=== PATIENT | male | born 1950 | race Caucasian/White ===

== ENCOUNTER 2024-05-09 03:58 | Inpatient (IN) | payer MEDICARE, MEDICAID, SELFPAY ==
[2024-05-09] VITALS (36 sets, daily range): BP systolic 113–169; BP diastolic 51–98; PULSE 54–90; RESP 12–29; TEMP 36–36.8; O2SAT 80–100; BMI 35.9; BMI 41.5
--- NOTE | 2024-05-09 04:04 | EKG_ITS ---
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 Associate: : 1950 Requested By: ED Temporary Provider Order Number: [id number] Reading MD: ED Temporary Provider Measurements Intervals [place] Rate: 61 P: 177 AR: 126 QRS: 252 QRSD: 107 T: 93 QT: 435 QTc: 440 Interpretive Statements ECTOPIC ATRIAL RHYTHM POSSIBLE RIGHT VENTRICULAR HYPERTROPHY [SOME/ALL OF: PROMINENT R IN V1, LATE TRANSITION, RAD, VENKAT, SSS] INFERIOR MYOCARDIAL INFARCTION , OF INDETERMINATE AGE [40+ ms Q WAVE AND/OR ST/T ABNORMALITY IN II/aVF] ANTEROLATERAL MYOCARDIAL INFARCTION , OF INDETERMINATE AGE [40+ ms Q WAVE IN I/aVL/V3-V6] Compared to ECG 04/26/2024 06:58:51 Ectopic atrial rhythm now present Sinus rhythm no longer present Indeterminate axis no longer present Myocardial infarct finding still present /store/S0/[id number].pdf
--- NOTE | 2024-05-09 04:07 | EDNOTE_ITS ---
ED SOB =RME/HPI General Chief Complaint: Shortness of Breath/Dyspnea Stated Complaint: SOB Time Seen by Provider: 05/09/24 04:07 Arrival date/time: 05/09/24 03:58 RME / HPI RME / HPI Narrative: This section includes all my notes and documentations, including HPI, PE, and ED course. Jeff Cherry MD HPI: 73-year-old male here to be evaluated with sudden respiratory distress and hypoxia at his half-way. 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 EMS gave sublingual NTG and topical NTG for possible pulmonary edema. Patient can't provide history due to AMS. ROS: Can't obtain history from the patient due to current clinical condition. Physical Exam: General: Patient is obtunded and in moderate respiratory distress. Eyes: Conjunctivae and lids clear. EOMI. PERRL. ENT: No nasal congestion. Neck: Supple. No carotid bruit. No JVD. Heart: RRR. Lungs: Moderate respiratory distress. Moderate to severe decreased air movement with wheezing and Rales. Abdomen: Soft and nontender. Legs: No clubbing, cyanosis, edema. Skin: Warm and dry. Neuro: Difficult exam due to AMS. I reviewed EMS and half-way notes. I ordered Solu-Medrol, MgSO4 IV, neb treatments, cefepime, vancomycin, and diagnostic tests. At 6 AM, the care of the patient was transferred to Dr Cruz. Jeff Cherry MD Related Data Home Medications ?Medication ?Instructions ?Recorded ?Confirmed clopidogrel 75 mg tablet (Plavix) 75 mg PO QDAY #0 tabs 12/23/15 04/19/24 gabapentin 300 mg capsule 300 mg PO TID #0 caps 01/10/17 04/19/24 magnesium hydroxide 400 mg/5 mL 30 ml PO Q72H PRN Constipation #0 01/10/17 04/19/24 oral suspension (Milk of Magnesia) mL ferrous sulfate 325 mg (65 mg 325 mg PO QDAY 10/07/23 04/19/24 iron) tablet hydrocodone 5 mg-acetaminophen 325 1 tab PO Q6H PRN Pain (Scale Score 10/19/23 04/19/24 mg tablet 7-10) bisacodyl 10 mg rectal suppository 10 mg AL Q72H 11/27/23 04/19/24 (Dulcolax (bisacodyl)) metformin 500 mg tablet 500 mg PO BIDWMEAL 11/27/23 04/19/24 Previous Rx's ?Medication ?Instructions ?Recorded amiodarone 200 mg tablet 200 mg PO BID #30 tabs 10/23/23 amlodipine 10 mg tablet 10 mg PO QDAY #30 tabs 10/23/23 apixaban 5 mg tablet 5 mg PO BID #60 tabs 10/23/23 tamsulosin 0.4 mg capsule (Flomax) 0.4 mg PO QDAY #30 caps 10/23/23 carvedilol 12.5 mg tablet 12.5 mg PO BIDWM 30 days #60 tabs 04/21/24 furosemide 20 mg tablet 20 mg PO Q72H 30 days #10 tabs 04/21/24 hydralazine 25 mg tablet 100 mg (4 x 25 mg) PO TID 30 days 04/21/24 #360 tabs ipratropium 0.5 mg-albuterol 3 mg 3 ml INH Q4HRRT 30 days #90 mL 04/21/24 (2.5 mg base)/3 mL nebulization soln levofloxacin 750 mg tablet 750 mg PO QDAY #1 tab 04/26/24 Allergies Allergy/AdvReac Type Severity Reaction Status Date / Time No Known Allergies Allergy Verified 06/10/19 11:00 Course Quality Measures none Orders Category Date Time Status Bedside COVID-19 Antigen Test NOW Care 05/09/24 04:38 Active Bedside Influenza A&B Antigen Test NOW Care 05/09/24 04:[address] Screening NOW Care 05/09/24 04:39 Active EKG (ED ONLY) *Do not use* NOW Care 05/09/24 04:04 Completed Saline [Insert IV] NOW Care 05/09/24 04:[address] abdomen pelvis w con Stat Exams 05/09/24 04:[address] angio chest Stat Exams 05/09/24 04:[address] head/brain wo con Stat Exams 05/09/24 04:38 Ordered EKG (ED Only) Stat Exams 05/09/24 04:04 Ordered XR chest 1V portable Stat Exams 05/09/24 04:38 Ordered ABG [Arterial Blood Gas] Stat Lab 05/09/24 04:08 Ordered Alcohol, Blood Medical Stat Lab 05/09/24 04:39 Ordered Ammonia Stat Lab 05/09/24 04:39 Ordered Amylase Stat Lab 05/09/24 04:39 Ordered BNP [B-Type Natriuretic Peptide] Stat Lab 05/09/24 04:39 Ordered Blood Culture (Lab) Stat Lab 05/09/24 04:39 Ordered CBC Stat Lab 05/09/24 04:39 Ordered CMP [Comprehensive Metabolic Panel] Stat Lab 05/09/24 04:39 Ordered CRP [C-Reactive Protein] Stat Lab 05/09/24 04:39 Ordered D-Dimer Stat Lab 05/09/24 04:39 Ordered Drug Screen,Urine Stat Lab 05/09/24 04:39 Ordered ESR [Sed Rate (ESR)] Stat Lab 05/09/24 04:39 Ordered Lactate (Lactic Acid) Stat Lab 05/09/24 04:39 Ordered Lipase Stat Lab 05/09/24 04:39 Ordered Magnesium Stat Lab 05/09/24 04:39 Ordered PT [Prothrombin Time with INR] Stat Lab 05/09/24 04:40 Ordered PTT [Partial Thromboplastin Time] Stat Lab 05/09/24 04:40 Ordered Procalcitonin Stat Lab 05/09/24 04:40 Ordered RSV [Respiratory Syncytial Virus Ag] Stat Lab 05/09/24 04:40 Ordered TSH [Thyroid Stimulating Hormone] Stat Lab 05/09/24 04:39 Ordered Troponin I Stat Lab 05/09/24 04:39 Ordered UA [Urinalysis] Stat Lab 05/09/24 04:40 Ordered Urine Culture Stat Lab 05/09/24 04:40 Ordered Albuterol/Ipratr Rt Maggie [Duoneb Rt Maggie] Med 05/09/24 04:08 Discontinued 9 ml INH X1 ONE Cefepime Inj [Maxipime Inj] 2 gm Med 05/09/24 04:09 Discontinued Sodium Chloride 0.9% (P) [Ns 0.9% (P)] 50 ml IV X1 Magnesium Sulfate 2 GM Ivpb [Magnesium Sulfate Ivpb] Med 05/09/24 04:08 Active 2 gm in 50 ml IV X1 MethylPREDNISolone.* [SoluMEDROL Inj] Med 05/09/24 04:08 Discontinued 125 mg IVP X1 ONE Vancomycin Inj 2,000 mg Med 05/09/24 04:10 Active Sodium Chloride 0.9% 500 ml [Ns] 500 ml IV X1 Vital Signs Vital signs: Vital Signs Temperature 98.0 F 05/09/24 04:09 Pulse Rate 73 05/09/24 04:09 Respiratory Rate 22 H 05/09/24 04:09 Blood Pressure 130/54 L 05/09/24 04:09 Pulse Oximetry (%) 85 L 05/09/24 04:09 Oxygen Delivery Method Room Air 05/09/24 04:09 Shortness of Breath / Dyspnea Patient data External records reviewed:: [facility] previous records, EMS form and Alf records Clinical information provided by:: EMS Social determinants that could affect healthcare access:: none (senior living patient with many serious medical problems) Patient has the following chronic illnesses:: See chart How is presenting disease/condition affected by chronic disease/condition?: exacerbated by Evaluation data The following diagnostics were reviewed and interpreted by me:: EKG tracing(s) (My interpretation of the EKG is: Sinus rhythm (73 bpm) with first-degree AV block and marked ST-T changes. Jeff Cherry MD) Lab and/or radiology exams considered but not ordered:: None Interpretation Summary: Diagnostic tests pending Medications / Prescriptions Medications or Prescriptions considered but not ordered:: None Medication administrations:: Medication Administration History Magnesium Sulfate (Magnesium Sulfate Ivpb) 2 gm in 50 mls @ 25 mls/hr IV X1 ONE Stop: 05/09/24 06:07 Last Admin: 05/09/24 04:40 Dose: 25 mls/hr Documented By: HARMONY Vancomycin HCl 2,000 mg/ (Sodium Chloride) 500 mls @ 150 mls/hr IV X1 ONE Stop: 05/09/24 07:29 Discontinued Medications Albuterol/Ipratropium (Albuterol/Ipratropium (Duoneb) Rt Maggie 3 Ml Nebu) 9 ml INH X1 ONE Stop: 05/09/24 04:09 Cefepime HCl 2 gm/ Sodium (Chloride) 50 mls @ 100 mls/hr IV X1 ONE Stop: 05/09/24 04:38 Last Admin: 05/09/24 04:47 Dose: 100 mls/hr Documented By: HARMONY Methylprednisolone Sodium Succinate (Methylprednisolone Sod Succ 62.5 Mg/Ml 2ml Vial) 125 mg IVP X1 ONE Stop: 05/09/24 04:09 Last Admin: 05/09/24 04:31 Dose: 125 mg Documented By: DB See chart Consultations Consultation(s) initiated? (list below): No Diagnosis Shortness of Breath Differential Diagnosis: acute exacerbation of chronic obstructive airways disease, congestive heart failure, community acquired pneumonia, asthma with exacerbation and pulmonary embolism Most likely diagnosis given after review of the tests above:: Diagnostic tests pending Admission Indicated Admission indicated?: not indicated Explain why admission is indicated or not indicated:: Diagnostic tests pending Admission Request Was there a request for admission?: No Disposition Plan Disposition Plan: Discharge Discharge Attestation Discharge Attestation: The patient and all family members were given an opportunity to ask questions and understood the discharge instructions. Discharge instructions specifically effects, indications for sooner follow up or return to the emergency department, and the expected course of current diagnosis. Patient condition: Stable Discharge Plan Prescriptions/Referrals Prescriptions/Med Rec: No Action clopidogrel [Plavix] 75 MG tablet 75 mg PO QDAY Qty: 0 magnesium hydroxide [Milk of Magnesia] 30 ML/CUP suspension 30 ml PO Q72H PRN (Reason: Constipation) Qty: 0 gabapentin 300 MG capsule 300 mg PO TID Qty: 0 hydrocodone-acetaminophen 5-325 mg tablet 1 tab PO Q6H PRN (Reason: Pain (Scale Score 7-10)) tamsulosin [Flomax] 0.4 mg capsule 0.4 mg PO QDAY Qty: 30 0RF amiodarone 200 mg tablet 200 mg PO BID Qty: 30 1RF Rx Instructions: HOLD FOR HR <60 apixaban 5 mg tablet 5 mg PO BID Qty: 60 0RF amlodipine 10 mg tablet 10 mg PO QDAY Qty: 30 0RF carvedilol 12.5 mg Tablet 12.5 mg PO BIDWM 30 Days Qty: 60 0RF ipratropium-albuterol 0.5 mg-3 mg(2.5 mg base)/3 mL Solution For Nebulization 3 ml INH Q4HRRT 30 Days Qty: 90 0RF hydralazine 25 mg Tablet 100 mg PO TID 30 Days Qty: 360 0RF furosemide 20 mg tablet 20 mg PO Q72H 30 Days Qty: 10 0RF levofloxacin 750 mg tablet 750 mg PO QDAY Qty: 1 0RF Rx Instructions: once on Friday 04/27 ferrous sulfate 325 mg (65 mg iron) Tablet 325 mg PO QDAY metformin 500 mg Tablet 500 mg PO BIDWMEAL bisacodyl [Dulcolax (bisacodyl)] 10 mg Suppository 10 mg AL Q72H Rx Instructions: ADMINISTER FOLLOWING SHIFT IF MOM INEFFECTIVE Referrals: No Primary/Family,Physician [Primary Care Provider] - In 1 week Problem List Clinical Impression: Respiratory failure Patient/Caregiver Discharge Instructions Print Language: Congolese
[2024-05-09] MEDS: MethylPREDNISolone SOD SUCC 62.5 MG/ML 2ML VIAL 125 MG IVP (04:31)
--- NOTE | 2024-05-09 04:38 | XR_ITS ---
Examination: AP chest single view TECHNIQUE: AP portable semiupright chest single view Exam date and time: May 09, 2024 0512 hours INDICATIONS: Shortness of breath today. FINDINGS: This is a nondiagnostic study, most of the lower chest is not included on this film Enlarged cardiac contour with prominent vascular congestion Bilateral pneumonia with layering left pleural fluid IMPRESSION: Nondiagnostic study
--- NOTE | 2024-05-09 04:38 | XR_ITS ---
Examination: CT brain head without contrast. 2-D sagittal coronal reconstructions Date and time of exam:May 09, 2024 0812 hours INDICATIONS: Altered mental status today difficulty breathing CTDI: vol (mGy):71.3 DLP: (mGycm):1548 Technique: Multiple CT axial sections of the brain have been obtained, 5 mm slice thickness. Contrast has not been administered. 2-D sagittal, coronal reconstructions have been obtained Low dose protocols were performed. One or more of the following dose reduction techniques were used; automated exposure control, adjustment of the mA and/or KV according to patient size, use of iterative reconstruction technique. Findings: Large old infarct right middle cerebral artery distribution with mild ipsilateral ventricular dilatation Intra-axial or extra-axial hemorrhage density is not seen. No mass effect or midline shift Basal cisterns are not remarkable. Fourth ventricle is midline. Cranial vault intact. Impression: Negative for acute hemorrhage, mass effect or midline shift Brain MRI follow-up would best assess for acute ischemic change
--- NOTE | 2024-05-09 04:39 | XR_ITS ---
Examination: CTA chest with intravenous contrast 2-D reconstructions 3-D reconstructions, vascular Date and time of exam: May 09, 2024 0818 hours INDICATIONS: Hypoxia chest pain shortness of breath today CTDI: vol (mGy) 66.7 DLP: (mGycm) 732 Technique: Multiple axial sections of the thorax have been obtained. 3 mm slice thickness, from below the hemidiaphragms to above the apices of the lungs. Mediastinal and lung density settings have been obtained. 2-D sagittal and coronal reconstructions. 3-D angiographic renderings, 3-D volume renderings, 3D post processing, vascular maximum intensity projections obtained. Contrast administered is 100 cc Isovue-370 intravenous. Low dose protocols were performed. One or more of the following dose reduction techniques were used; automated exposure control, adjustment of the mA and/or KV according to patient size, use of iterative reconstruction technique. Findings: No thoracic aortic aneurysm dilatation or dissection No pulmonary artery emboli Mild to moderate right pleural effusion Mild to moderate enlargement cardiac contour with prominent vascular congestion and septal pulmonary edema Extensive left lung and right base pneumonia IMPRESSION: Negative for pulmonary artery emboli Mild heart failure Bilateral pneumonia, significant
--- NOTE | 2024-05-09 04:39 | XR_ITS ---
Examination: CT abdomen with intravenous contrast CT pelvis with intravenous contrast 2-D coronal reconstructions 2-D sagittal reconstructions Date and time of exam:May 09, 2024 0824 hours Comparison April 25, 2024 INDICATIONS: Shortness of breath abdominal pain hypoxia today. CTDI: vol (mGy) 25.6 DLP: (mGycm) 1704 Technique: Multiple axial sections of the abdomen and pelvis have been obtained. 64 slice high-resolution scanner used. 3 mm axial sections have been obtained, post intravenous injection 100 cc Isovue-370 2-D sagittal, coronal reconstructions obtained. Low dose protocols were performed. One or more of the following dose reduction techniques were used; automated exposure control, adjustment of the mA and/or KV according to patient size, use of iterative reconstruction technique. Findings: Bibasilar pneumonia mild to moderate right pleural effusion Enlarged cardiac contour, small pericardial effusion Liver is irregular in contour no focal liver lesions Gallbladder wall appears thickened and edematous Spleen is not enlarged No pancreatic mass End-stage atrophic left kidney with 15 mm left ureteropelvic junction calculus No right hydronephrosis Dense abdominal aortic calcification no aneurysmal dilatation Abundant stool throughout the colon No pericecal inflammatory change Urinary catheter within the bladder, markedly abnormal thickening of the urinary bladder up to 12 mm, mild to moderate prostatomegaly Severe osteopenia with advanced degenerative disc disease L5-S1 Prominent lumbar levoscoliosis IMPRESSION: Bibasilar pneumonia Mild to moderate right pleural effusion Primary hepatocellular disease Recommend hepatobiliary sonography follow-up to exclude acute cholecystitis End-stage left kidney with 15 mm left ureteropelvic junction calculus Marked abnormal thickening of the urinary bladder, consider cystitis, urinary outflow obstruction secondary to mild to moderate prostatomegaly
[2024-05-09] MEDS: Magnesium Sulfate 2 GM Ivpb 2 GM/50 ML BAG IV (04:40)
[2024-05-09] MEDS: CEFEPIME INJ 2 GM in SODIUM CHLORIDE 0.9% (P) 50 ML IV (04:47)
[2024-05-09 05:14] LABS: Lactate (Lactic Acid) 1.3 mMol/L (0.4-2.0)
[2024-05-09 05:22] LABS: Basophils % (Auto) 0 % (0-2.5); Eosinophils # (Auto) 0.1 Thou/mm3 (0.0-0.5); Eosinophils % (Auto) 1 % (0-10); Hematocrit 42.6 % (41.0-53.0); Hemoglobin 12.9 g/dL (13.5-16.0); Immature Granulocytes % (Auto) 1 % (0-0); Immature Granulocytes Auto 0.07 Thou/mm3 (0.00-0.00); Lymphocytes # (Auto) 0.7 Thou/mm3 (1.0-4.8); Lymphocytes % (Auto) 5 % (10-50); Mean Corpuscular HGB Conc 30.3 g/dl (31.0-37.0); Mean Corpuscular Hemoglobin 26.4 pg (25.0-35.0); Mean Corpuscular Volume 87 fL (80-100); Monocytes # (Auto) 0.6 Thou/mm3 (0.0-0.8); Monocytes % (Auto) 5 % (0-12); Neutrophils % (Auto) 88 % (37-80); Nucleated Red Blood Cell % 0 /100 WBC (0); Platelet Count 295 Thou/mm3 (140-440); RDW Standard Deviation 55.4 fL (35.1-43.9); Red Blood Count 4.88 Miln/mm3 (4.50-5.90); White Blood Count 12.5 Thou/mm3 (3.8-10.6)
[2024-05-09 05:29] LABS: Collection Type, Urine Clean Catch
[2024-05-09 05:32] LABS: Sed Rate (ESR) 63 mm/hr (0-20)
[2024-05-09] MEDS: Vancomycin Inj 2,000 MG in SODIUM CHLORIDE 0.9% 500 ML 500 ML 150 MG IV (05:33)
[2024-05-09 05:36] LABS: Bacteria,Urine 4+; Bilirubin,Urine Negative (Negative); Blood,Urine 2+ (Negative); Color,Urine Orange (Lt Yel-Yel); Glucose, Urine Negative (Negative); Ketones,Urine Negative (Negative); Leukocyte Esterase,Urine Positive (Negative); Nitrite,Urine Negative (Negative); PH,Urine 7.5 (5.0-7.0); Protein,Urine 4+ (Neg - Trace); RBC,Urine 31 /hpf (0-3); Specific Gravity,Urine 1.017 (1.001-1.035); Squamous Epithelial Cell,Urine 9 /hpf (0-5); Urobilinogen,Urine Negative mg/dL (0.0-1.0); WBC,Urine 150 /hpf (0-5)
[2024-05-09 05:44] LABS: Partial Thromboplastin Time 26.8 Seconds (22.0-36.0); Prothrombin Time 11.4 Seconds (9.0-12.2)
[2024-05-09 05:50] LABS: D-Dimer < 250 ng/mL (<600)
[2024-05-09 06:14] LABS: Alanine Aminotransferase 27 U/L (10-49); Albumin, Serum 3.9 gm/dL (3.4-4.8); Albumin/Globulin Ratio 1.1 (1.2-2.2); Alcohol, Blood Medical < 3.0 mg/dL (0-10.0); Alkaline Phosphatase 83 U/L (46-116); Amylase 32 U/L (30-118); Anion Gap 5 (7-16); Aspartate Amino Transferase 20 U/L (0-34); BUN/Creatinine Ratio 14 Ratio (12-20); Bilirubin,Total 0.2 mg/dL (0.3-1.2); Blood Urea Nitrogen 15 mg/dL (9-23); C-Reactive Protein 0.6 mg/dL (0.0-0.9); Calcium 10.2 mg/dL (8.3-10.6); Calcium (Corrected) 10.3 mg/dL (8.5-10.1); Carbon Dioxide 30.3 mMol/L (20.0-31.0); Chloride 101 mMol/L (98-107); Creatinine (Component) 1.1 mg/dL (0.6-1.3); Estimated Creatinine Clearance 80.2 mL/min (>60); Globulin 3.4 gm/dL (2.3-3.5); Glucose 160 mg/dL (74-106); Lipase 37 U/L (12-53); Magnesium 2.1 mg/dL (1.6-2.6); Osmolality,Calculated 275 (275-295); Potassium 4.5 mMol/L (3.4-5.1); Sodium 136 mMol/L (136-145); Thyroid Stimulating Hormone 5.33 uIU/mL (0.55-4.78); Total Protein 7.3 gm/dL (5.7-8.2); Troponin I < 0.020 ng/mL (0.0-0.045); eGFR > 60 See Note
[2024-05-09 06:15] LABS: Amphetamine/Methamp Scrn,U Negative (Negative); Barbiturate Screen,Urine Negative (Negative); Benzodiazepines Screen,Urine Negative (Negative); Benzoylecgonine Screen, Ur Negative (Negative); Fentanyl Screen,Urine Negative (Negative); Opiate Screen,Urine Positive (Negative); THC Screen,Urine Negative (Negative)
--- NOTE | 2024-05-09 06:19 | PD.EDADDENDU ---
Emergency Room Addendum Addendum Narrative: 0600: Care assumed from Dr. Cherry, the previous shift emergency physician. Past medical, surgical, social and family history reviewed. Vitals and home medications reviewed. I will assume the care of the patient at this time pending reassessment, CT reports, final disposition. Please refer to the emergency department record for history and examination from initial visit.? EMS notes reviewed by me. Nursing notes reviewed by me. Vital signs reviewed by me. half-way records reviewed by me. [facility] medical records reviewed by me. I reviewed admission from 04/18/2024 through 06/26/2023 for acute hypoxic respiratory failure secondary to aspiration pneumonia requiring mechanical ventilation. Patient was admitted to the ICU, extubated on 04/19/2024 and downgraded to floors. 0625: Patient was saturating 92-93% on 4L. Oxygen was turned off and patient saturating 80% on room air. 0750: pCO2 is 82. I spoke with buffing turner and counter Dr. Aleman. Discussed patients PMHx, HPI, ED course, exam findings, labs, and radiology results. Advised starting patient on BiPAP and will admit to ICU. RADIOLOGY Ordering Physician: Jeff Cherry MD Date of Service: 05/09/24 Procedure(s): CT head/brain wo [facility] Accession Number(s): [id number] cc: Jeff Cherry MD; Vicente Don MD; NO PRIMARY/FAMILY,PHYSICIAN~ Examination: CT brain head without contrast. 2-D sagittal coronal reconstructions Date and time of exam:May 09, 2024 0812 hours INDICATIONS: Altered mental status today difficulty breathing CTDI: vol (mGy):71.3 DLP: (mGycm):1548 Technique: Multiple CT axial sections of the brain have been obtained, 5 mm slice thickness. Contrast has not been administered. 2-D sagittal, coronal reconstructions have been obtained Low dose protocols were performed. One or more of the following dose reduction techniques were used; automated exposure control, adjustment of the mA and/or KV according to patient size, use of iterative reconstruction technique. Findings: Large old infarct right middle cerebral artery distribution with mild ipsilateral ventricular dilatation Intra-axial or extra-axial hemorrhage density is not seen. No mass effect or midline shift Basal cisterns are not remarkable. Fourth ventricle is midline. Cranial vault intact. Impression: Negative for acute hemorrhage, mass effect or midline shift Brain MRI follow-up would best assess for acute ischemic change Dictated By:Vicente Don MD Signed By:<Electronically signed by Vicente Don MD in [place]>05/09/24 1003 Ordering Physician: Jeff Cherry MD Date of Service: 05/09/24 Procedure(s): CT abdomen pelvis w con Accession Number(s): [id number] cc: Jeff Cherry MD; Vicente Don MD; NO PRIMARY/FAMILY,PHYSICIAN~ Examination: CT abdomen with intravenous contrast CT pelvis with intravenous contrast 2-D coronal reconstructions 2-D sagittal reconstructions Date and time of exam:May 09, 2024 0824 hours Comparison April 25, 2024 INDICATIONS: Shortness of breath abdominal pain hypoxia today. CTDI: vol (mGy) 25.6 DLP: (mGycm) 1704 Technique: Multiple axial sections of the abdomen and pelvis have been obtained. 64 slice high-resolution scanner used. 3 mm axial sections have been obtained, post intravenous injection 100 cc Isovue-370 2-D sagittal, coronal reconstructions obtained. Low dose protocols were performed. One or more of the following dose reduction techniques were used; automated exposure control, adjustment of the mA and/or KV according to patient size, use of iterative reconstruction technique. Findings: Bibasilar pneumonia mild to moderate right pleural effusion Enlarged cardiac contour, small pericardial effusion Liver is irregular in contour no focal liver lesions Gallbladder wall appears thickened and edematous Spleen is not enlarged No pancreatic mass End-stage atrophic left kidney with 15 mm left ureteropelvic junction calculus No right hydronephrosis Dense abdominal aortic calcification no aneurysmal dilatation Abundant stool throughout the colon No pericecal inflammatory change Urinary catheter within the bladder, markedly abnormal thickening of the urinary bladder up to 12 mm, mild to moderate prostatomegaly Severe osteopenia with advanced degenerative disc disease L5-S1 Prominent lumbar levoscoliosis IMPRESSION: Bibasilar pneumonia Mild to moderate right pleural effusion Primary hepatocellular disease Recommend hepatobiliary sonography follow-up to exclude acute cholecystitis End-stage left kidney with 15 mm left ureteropelvic junction calculus Marked abnormal thickening of the urinary bladder, consider cystitis, urinary outflow obstruction secondary to mild to moderate prostatomegaly Dictated By:Vicente Don MD Signed By:<Electronically signed by Vicente Don MD in [place]>05/09/24 1000 Ordering Physician: Jeff Cherry MD Date of Service: 05/09/24 Procedure(s): CT angio chest Accession Number(s): [id number] cc: Jeff Cherry MD; Vicente Don MD; NO PRIMARY/FAMILY,PHYSICIAN~ Examination: CTA chest with intravenous contrast 2-D reconstructions 3-D reconstructions, vascular Date and time of exam: May 09, 2024 0818 hours INDICATIONS: Hypoxia chest pain shortness of breath today CTDI: vol (mGy) 66.7 DLP: (mGycm) 732 Technique: Multiple axial sections of the thorax have been obtained. 3 mm slice thickness, from below the hemidiaphragms to above the apices of the lungs. Mediastinal and lung density settings have been obtained. 2-D sagittal and coronal reconstructions. 3-D angiographic renderings, 3-D volume renderings, 3D post processing, vascular maximum intensity projections obtained. Contrast administered is 100 cc Isovue-370 intravenous. Low dose protocols were performed. One or more of the following dose reduction techniques were used; automated exposure control, adjustment of the mA and/or KV according to patient size, use of iterative reconstruction technique. Findings: No thoracic aortic aneurysm dilatation or dissection No pulmonary artery emboli Mild to moderate right pleural effusion Mild to moderate enlargement cardiac contour with prominent vascular congestion and septal pulmonary edema Extensive left lung and right base pneumonia IMPRESSION: Negative for pulmonary artery emboli Mild heart failure Bilateral pneumonia, significant Dictated By:Vicente Don MD Signed By:<Electronically signed by Vicente Don MD in [place]>05/09/24 1002
[2024-05-09 06:31] LABS: Clarity,Urine Turbid (Clear/Hazy)
--- NOTE | 2024-05-09 07:16 | PC.NURSE ---
CALLED RT FOR BREATHING TREATMENT AND ABG
[2024-05-09 07:37] LABS: Allen Test Performed/OK; Base Excess 5 (-3-3); HCO3 35 mEq/L (20-26); Inspired O2, VO2 Liters 5 L/min; Inspired Oxygen, FIO2 21 %; O2 Saturation 93 % (91-98); PCO2 83 mmHg (32.0-48.0); PO2 69 mmHg (83-108); Puncture Site Right Radial; pH, Arterial 7.23 (7.35-7.45)
[2024-05-09] MEDS: ALBUTEROL/IPRATROPIUM (Duoneb) RT SOL 3 ML NEBU 9 ML INH (07:38)
[2024-05-09 07:56] LABS: B-Type Natriuretic Peptide 149 pg/mL (0-100)
[2024-05-09 07:57] LABS: Ammonia < 10 uMol/L (11-32)
[2024-05-09 08:08] LABS: Procalcitonin 0.35 ng/ml (0.0-0.49)
--- NOTE | 2024-05-09 08:35 | PC.NURSE ---
pt back from ct. rt at bedside to place pt on bipap. pt is alert and answering questions at this time
--- NOTE | 2024-05-09 08:40 | PC.NURSE ---
residents and icu hospitalist at bedside to see pt
[2024-05-09 08:42] LABS: Respiratory Syncytial Virus Ag Negative (Negative)
[2024-05-09 09:38] LABS: Allen Test Performed/OK; Base Excess 4 (-3-3); HCO3 34 mEq/L (20-26); Inspired Oxygen, FIO2 50 %; O2 Saturation 95 % (91-98); PCO2 78 mmHg (32.0-48.0); PO2 77 mmHg (83-108); Puncture Site Right Radial; pH, Arterial 7.24 (7.35-7.45)
[2024-05-09] MEDS: PANTOPRAZOLE INJ 40 MG VIAL IVP (10:09)
[2024-05-09] MEDS: CLOPIDOGREL BISULFATE 75 MG TABLET PO (10:19)
[2024-05-09] MEDS: APIXABAN 2.5 MG TABLET 5 MG PO ×2 (10:19→21:15)
[2024-05-09] MEDS: ALBUTEROL/IPRATROPIUM (Duoneb) RT SOL 3 ML NEBU INH (10:27)
--- NOTE | 2024-05-09 10:40 | PC.NURSE ---
report given to Romana on icu floor. pt to go to room 251
[2024-05-09] MEDS: ALBUTEROL RT 2.5 MG/0.5 ML NEBU 5 MG INH ×2 (12:57→18:23)
--- NOTE | 2024-05-09 13:02 | PC.SS ---
DOZER OPERATOR attempted phone contact with patient's friend Perry Mccain . No response. Message left requesting return call.
--- NOTE | 2024-05-09 13:08 | PC.SS ---
L[employer] MUSIC TEACHER conducted chart review to complete initial assessment. Patient is a [facility] resident of [facility]. Patient is bed bound. Patient utilizes oxygen at the facility. Patient requires assistance with completion of ADL?s. Patient?s medical surrogate decision maker is friend, Perry Mccain . Facility PCP is Dr. Sandoval. L[employer] TEACHER to confirm with SNF that patient can return to facility once medically cleared. [employer] TEACHER attempted phone contact with medical surrogate decision maker to confirm discharge plan. Upon discharge patient will require ambulance transport. Patient possesses insurance coverage for ambulance transport. [employer] representative will arrange transportation on behalf of the patient. No further intervention required at this time, social work instructor will be available to address any further concerns. Next of Kin: Perry Mccain D/C Plan: SNF
[2024-05-09] MEDS: VANCOMYCIN/NS 1 GM IVPB 200 ML IV ×2 (14:28→21:15)
[2024-05-09 14:53] LABS: Base Excess, Venous 5 (-3-3); O2 Saturation, Venous 101 % (96-97); PCO2, Venous 53 mmHg (36-56); PO2, Venous 188 mmHg (15-58); pH, Venous 7.38 (7.33-7.66)
--- NOTE | 2024-05-09 18:19 | ESHP_ITS ---
<Statement entered by Suze Barney MD - 05/10/24 06:53> Patient was seen and examined by me personally. I have directly supervised and reviewed the above documentation by the team resident and agree with its findings with any exceptions or additional findings as below. Plan of care was discussed with the attending, Dr. Aleman. Suze Barney, PGY-2 Documentation for date of: 05/09/24 HPI History of Present Illness Chief complaint: altered mental status History of present illness: This is a 73-year-old male with past medical history of CVA with left-sided deficits, hypertension, hyperlipidemia, HFpEF 50% on 11/05, history of COPD, history of type 2 diabetes on metformin, and BPH with indwelling catheter, recent admission on 04/20/2024 for acute hypoxic respiratory failure and underwent intubation [facility] due to shortness of breath and altered mental status. Patient is not able to provide history in view of altered mental status so most of history is taken from chart review. EMS found him altered at [facility] facility and gave him nitroglycerin in view of suspected pulmonary edema and brought him to the ED. ED Course: -Initial vitals were blood pressure 137/64 mmHg, pulse rate 73/min, respiratory rate 22/min, temperature 98 ?F, SpO2 85%. -Labs significant for WBC 12.5, Hb 12.9, platelets 295, ESR 63, sodium 136, potassium 4.5, bicarb 30.3, BUN 15, creatinine 1.1, lactate 1.3, total bilirubin 0.2, negative troponins, BNP 149, procalcitonin 0.35, TSH 5.33. Urine analysis showed turbid urine with 4+ proteinuria and 2+ blood, 150 WBC, 31 RBC with 4+ urine bacteria. Chest x-ray done at the time showed left pneumonia with pleural effusion which was present since the previous admission. Chest CT done showed left lung collapse with pleural effusion bilaterally. -In the ED, patient was given methylprednisolone 125 Mg, cefepime, vancomycin and started on BiPAP -Patient was admitted for acute on chronic hypoxic respiratory failure Review of Systems Review of Systems ROS Unobtainable: unobtainable due to mental status Exam Vital Signs Temp Pulse Resp BP Pulse Ox O2 Del Method O2 Flow Rate 98.0 F 62 17 148/63 H 95 BiPAP 5 05/09/24 16:00 05/09/24 17:01 05/09/24 17:01 05/09/24 17:01 05/09/24 17:01 05/09/24 13:01 05/09/24 07:40 FiO2 45 05/09/24 13:46 Narrative Exam General: Awake and in moderate distress with BiPAP mask connected to the machine. Morbidly obese. HEENT: Normocephalic, atraumatic, mucous membranes moist. Brownish secretions noted at the angle of mouth. Heart: Regular rate and rhythm, no murmurs. Lungs: Bilateral decreased breath sounds noted due to body habitus. Abdomen: Soft, nondistended, nontender, positive bowel sounds. ?No guarding or rebound tenderness. Neurologic: Lethargic with decreased movements noted on left half of the body. Extremities: No edema. Skin: No rash or ecchymoses. Results: Labs 05/11/24 05:38 05/11/24 05:38 Labs: Short CBC 05/09/24 Range/Units 04:20 WBC 12.5 H (3.8-10.6) Thou/mm3 Hgb 12.9 L (13.5-16.0) g/dL Hct 42.6 (41.0-53.0) % Plt Count 295 (140-440) Thou/mm3 BMP 05/09/24 04:20 Sodium 136 Potassium 4.5 Chloride 101 Carbon Dioxide 30.3 BUN 15 Creatinine 1.1 Glucose 160 H Calcium 10.2 Cardiac Enzymes 05/09/24 Range/Units 04:20 Troponin I < 0.020 (0.0-0.045) ng/mL Liver Function 05/09/24 Range/Units 04:20 Total Bilirubin 0.2 L (0.3-1.2) mg/dL AST 20 (0-34) U/L ALT 27 (10-49) U/L Alkaline Phosphatase 83 (46-116) U/L Albumin 3.9 (3.4-4.8) gm/dL Urine 05/09/24 Range/Units 03:00 Urine Color [place] A (Lt Yel-Yel) Urine Clarity Turbid A (Clear/Hazy) Urine pH 7.5 H (5.0-7.0) Ur Specific [place] 1.017 (1.001-1.035) Urine Protein 4+ A (Neg - Trace) Urine Glucose (UA) Negative (Negative) ABG Interpretation ABG results: 05/09/24 05/09/24 05/09/24 07:34 09:35 14:48 ABG pH 7.23 L 7.24 L ABG pCO2 83 H* 78 H* ABG pO2 69 L 77 L ABG HCO3 35 H 34 H ABG O2 Saturation 93 95 ABG Base Excess 5 H 4 H VBG pH 7.38 VBG pCO2 53 VBG pO2 188 H VBG Base Excess 5 H Quality Measures Quality Measures none Advance care planning discussed with:: patient Medications Home Medications and Allergies Home Medications ?Medication ?Instructions ?Recorded ?Confirmed ?Type clopidogrel 75 mg tablet (Plavix) 75 mg PO QDAY #0 tabs 12/23/15 05/13/24 History gabapentin 300 mg capsule 300 mg PO TID #0 caps 01/10/17 05/13/24 History magnesium hydroxide 400 mg/5 mL 30 ml PO Q72H PRN Constipation #0 01/10/17 05/13/24 History oral suspension (Milk of Magnesia) mL ferrous sulfate 325 mg (65 mg 325 mg PO QDAY 10/07/23 05/13/24 History iron) tablet hydrocodone 5 mg-acetaminophen 325 1 tab PO Q6H PRN Pain (Scale Score 10/19/23 05/13/24 History mg tablet 7-10) bisacodyl 10 mg rectal suppository 10 mg [place] Q72H 11/27/23 05/13/24 History (Dulcolax (bisacodyl)) metformin 500 mg tablet 500 mg PO BIDWMEAL 11/27/23 05/13/24 History hydralazine 25 mg tablet 50 mg PO TID 05/09/24 05/13/24 History Allergies Allergy/AdvReac Type Severity Reaction Status Date / Time No Known Allergies Allergy Verified 05/09/24 05:50 Visit Medications Acetaminophen (Acetaminophen 325 Mg Tablet) 650 mg PO Q4HR PRN PRN Reason: PAIN SCALE 1-3 (mild Stop: 06/08/24 08:47 Al Hydrox/Mg Hydrox/Simethicone (Mg Hyd/Al Hyd/[place] (Maalox Reg) Susp 30 Ml Udc) 30 ml PO Q4HR PRN PRN Reason: Heartburn or Upset Stomach Stop: 06/08/24 08:47 Albuterol (Albuterol Rt 2.5 Mg/0.5 Ml Nebu) 5 mg INH Q6HRRT [facility] Stop: 06/08/24 12:59 Last Admin: 05/09/24 12:57 Dose: 5 mg Amiodarone HCl (Amiodarone Hcl 200 Mg Tablet) 200 mg PO BID [facility] Stop: 06/08/24 08:59 Last Admin: 05/09/24 12:18 Dose: Not Given Apixaban (Apixaban 2.5 Mg Tablet) 5 mg PO BID [facility] Stop: 06/08/24 08:59 Last Admin: 05/09/24 10:19 Dose: 5 mg Clopidogrel Bisulfate (Clopidogrel Bisulfate 75 Mg Tablet) 75 mg PO QDAY [facility] Stop: 06/08/24 08:59 Last Admin: 05/09/24 10:19 Dose: 75 mg Dextrose (Dextrose 50%-Water Inj 50 Ml Syringe) 25 ml IV Q15MIN PRN PRN Reason: BG 50-70 responsive npo pt Stop: 06/08/24 08:54 Dextrose (Dextrose 50%-Water Inj 50 Ml Syringe) 50 ml IV Q15MIN PRN PRN Reason: BG <50 OR BG <70 & pt unresponsive Stop: 06/08/24 08:54 Glucagon (Glucagon Inj 1 Mg Vial) 1 mg IM Q15MIN PRN PRN Reason: BG <70, and no IV access Cefepime HCl 1 gm/ Sodium (Chloride) 50 mls @ 100 mls/hr IV Q12HR [facility] Stop: 05/16/24 08:59 Last Admin: 05/09/24 10:41 Dose: Not Given Vancomycin/Sodium Chloride (Vancomycin/Ns 1 Gm Ivpb) 200 mls @ 120 mls/hr IV Q8HR [facility]; Protocol Stop: 05/16/24 13:59 Last Admin: 05/09/24 14:28 Dose: 120 mls/hr Insulin Human Lispro (Insulin Lispro (Admelog) 1 Unit/0.01 Ml Unit) 0 unit SC [facility]; Protocol Stop: 06/08/24 11:29 Last Admin: 05/09/24 13:09 Dose: Not Given Magnesium Hydroxide (Milk Of Magnesia Susp 30 Ml Udc) 30 ml PO QDAY PRN PRN Reason: CONSTIPATION Stop: 06/08/24 08:47 Methylprednisolone Sodium Succinate (Methylprednisolone Sod Succ 40 Mg Vial) 40 mg IVP BID [facility] Stop: 05/16/24 08:59 Last Admin: 05/09/24 10:09 Dose: 40 mg Pantoprazole Sodium (Pantoprazole Inj 40 Mg Vial) 40 mg IVP QDAY [facility] Stop: 06/08/24 08:59 Last Admin: 05/09/24 10:09 Dose: 40 mg Pharmacy Consult (Vancomycin Pharmacy To Dose 1 Each Each) 1 each IV QDAY PRN PRN Reason: PROTOCOL Stop: 06/08/24 08:59 Discontinued Medications Albuterol/Ipratropium (Albuterol/Ipratropium (Duoneb) Rt Maggie 3 Ml Nebu) 9 ml INH X1 ONE Stop: 05/09/24 04:09 Last Admin: 05/09/24 07:38 Dose: 9 ml Albuterol/Ipratropium (Albuterol/Ipratropium (Duoneb) Rt Maggie 3 Ml Nebu) 3 ml INH Q4HRRT [facility] Stop: 06/08/24 10:59 Last Admin: 05/09/24 10:27 Dose: 3 ml Magnesium Sulfate (Magnesium Sulfate Ivpb) 2 gm in 50 mls @ 25 mls/hr IV X1 ONE Stop: 05/09/24 06:07 Last Infusion: 05/09/24 06:43 Dose: Infused Cefepime HCl 2 gm/ Sodium (Chloride) 50 mls @ 100 mls/hr IV X1 ONE Stop: 05/09/24 04:38 Last Infusion: 05/09/24 05:33 Dose: Infused Vancomycin HCl 2,000 mg/ (Sodium Chloride) 500 mls @ 150 mls/hr IV X1 ONE Stop: 05/09/24 07:29 Last Infusion: 05/09/24 09:58 Dose: Infused Methylprednisolone Sodium Succinate (Methylprednisolone Sod Succ 62.5 Mg/Ml 2ml Vial) 125 mg IVP X1 ONE Stop: 05/09/24 04:09 Last Admin: 05/09/24 04:31 Dose: 125 mg Assessment & Plan Plan 73-year-old male with past medical history of CVA with left-sided deficits, hypertension, hyperlipidemia, HFpEF 50% on 11/05, history of COPD, history of type 2 diabetes A1c 8.4 on 10/06 and BPH with indwelling catheter [facility] due to shortness of breath and diagnosed to have AHRF 2/2 combined aspiration pneumonia and influenza NEURO Patient is awake, alert, and oriented x3, following commands, conversational. #No active problems # History of [id number] residual deficit, bedridden. -Will continue Plavix CARDIO # History of HFpEF (EF 50 to 55% on 10/2023) -Patient is using furosemide 20 Mg p.o. daily. -On physical examination, patient does not appear to be in heart failure -no pedal edema, JVD absent. -EKG done on 05/09/2024-normal sinus rhythm, Q waves in inferior leads and V1- V6, poor R wave progression. -Echo done on 10/2023 - Normal LV size. Probable normal systolic function. Estimated EF 50-55%. RV and RA not well visualized. Mild LA dilatation. Moderate posterior MAC. Mild AV sclerosis without stenosis. -BNP is 149, Trop I - <0.020. Plan -Withheld Lasix for now as patient does not appear fluid overloaded. # History of paroxysmal atrial fibrillation -Patient is on Eliquis Plan -Will continue Eliquis 5 Mg twice daily and amiodarone 200 Mg p.o. twice daily # History of hypertension -Blood pressures at the time of admission is within normal limits. -Will resume his home medication if needed. PULM # Acute on chronic hypoxic respiratory failure -Ddx: Combined CPAP noncompliance, aspiration and atelectasis of left lung with underlying COPD, obstructive sleep apnea, OHS -Patient is supposed to use oxygen at home / and also using CPAP at night but noncompliant -Patient was recently intubated on 04/18/2024 for hypoxic respiratory failure. -Again presented with altered mental status and low oxygen saturations and started on BiPAP. -Chest x-ray left pleural effusion with bilateral pneumonia. -CT showed Bibasilar pneumonia. Mild to moderate right pleural effusion -ABG showed pH 7.24, pCO2 78, PaO2 77, bicarb 34. Plan -blood, urine and sputum secretions culture were sent -Patient was kept on BiPAP. -Started on cefepime and vancomycin [05/09-present -Respiratory therapy and chest physiotherapy were ordered. # History of COPD -Patient is using oxygen and CPAP at home -Stop smoking years ago. -On examination, there is no wheeze heard -Will continue noninvasive mechanical ventilation and maintain SpO2 between 88 and 92. GI #No active problems NEPHRO # Respiratory acidosis with compensated metabolic alkalosis -DDX: Could be due to underlying chronic COPD with compensatory metabolic alkalosis -Repeat VBG was within limits. ENDO # History of diabetes -Patient is using metformin 500 Mg p.o. twice daily at his nursing facility -HbA1c is 6 on 04/20/2024 Plan -Patient is on insulin sliding scale HEME # Leukocytosis -WBC count at the time of admission is 12.5 -Likely due to aspiration pneumonia -Will continue the antibiotics for now MSK # Chronic back pain -Patient is using [place] at home : #BPH with indwelling catheter Patient came with garcia catheter from SNF. Plan: -cont tamsulosin SKIN #No active problems DVT prophylaxis: Eliquis GI prophylaxis: Pantoprazole 40 Mg IV Diet: Low carbohydrate and cardiac diet Garcia: Present Lines: Peripheral Antibiotics: vancomycin and cefepime CODE STATUS: FULL Reason for ICU care: Acute on chronic hypoxic respiratory failure Patient plan of care was discussed with the attending information systems coordinator, Dr. Aleman and senior resident Dr. Ector Rollins, PGY1 Attending Provider Attestation/Addendum Patient seen and examined with above resident, Silvestre Rollins MD. I agree with the findings, assessment, and plan of care as documented except for any differences below. Patient admitted with acute on chronic hypercapnic/hypoxic respiratory failure with significant left lung atelectasis. Will plan for use of noninvasive positive pressure ventilation as mechanical ventilation and intubation may be very difficult to wean and should be avoided if possible. Previous history of recurrent admissions for similar presentation. Patient did require intubation in the past and was quickly weaned within 24 hours to avoid prolonging and potential for worsening respiratory muscle function and deconditioning associated with prolonged illness. At this point he is not a good candidate for bronchoscopy as this will surely require intubation for safety. Patient's gas exchange slowly improving with current BiPAP settings. Will avoid any sedation but could consider Precedex as needed as it does not affect respiratory drive. Chest physiotherapy along with nebulization with saline and albuterol should be done to help with mucous plugging that is likely contributing to the his current presentation. Patient empirically placed on antibiotics as pneumonia may be driving significant airway secretions at this point. Patient not having significant cough though this is likely related to his poor mental status/encephalopathy secondary to CO2 retention. He is starting to wake up and interactive with staff and complaining about BiPAP mask which is a good sign. Total critical care time: I personally spent 35 minutes for review of physiologic parameters, directing plan of care throughout the day, and coordination of care with ED. this is exclusive of time spent teaching housestaff or performing any separate billable procedures. Patient continues to require critical care services for acute on chronic hypercapnic respiratory failure with acute encephalopathy secondary to CO2 narcosis with high risk for increased morbidity requiring mechanical ventilation and mortality associated with this.
[2024-05-09] MEDS: AMIODARONE HCL 200 MG TABLET PO (21:15)
[2024-05-09] MEDS: CEFEPIME INJ 1 GM in SODIUM CHLORIDE 0.9% (P) 50 ML IV (21:16)
[2024-05-10] VITALS (25 sets, daily range): BP systolic 134–174; BP diastolic 56–79; PULSE 57–74; RESP 11–28; TEMP 36.3–36.9; O2SAT 95–99; BMI 41.5
[2024-05-10] MEDS: ALBUTEROL RT 2.5 MG/0.5 ML NEBU 5 MG INH ×3 (00:38→19:19)
[2024-05-10 05:20] LABS: Base Excess 7 (-3-3); HCO3 33 mEq/L (20-26); Inspired Oxygen, FIO2 21 %; O2 Saturation 97 % (91-98); PCO2 51 mmHg (32.0-48.0); PO2 80 mmHg (83-108); pH, Arterial 7.42 (7.35-7.45)
[2024-05-10 05:21] LABS: Allen Test Performed/OK; Puncture Site Right Radial
[2024-05-10 05:52] LABS: Basophils % (Auto) 0 % (0-2.5); Eosinophils % (Auto) 0 % (0-10); Hemoglobin 12.3 g/dL (13.5-16.0); Immature Granulocytes % (Auto) 0 % (0-0); Immature Granulocytes Auto 0.02 Thou/mm3 (0.00-0.00); Lymphocytes # (Auto) 0.3 Thou/mm3 (1.0-4.8); Lymphocytes % (Auto) 6 % (10-50); Mean Corpuscular HGB Conc 30.8 g/dl (31.0-37.0); Mean Corpuscular Hemoglobin 26.3 pg (25.0-35.0); Mean Corpuscular Volume 86 fL (80-100); Monocytes # (Auto) 0.1 Thou/mm3 (0.0-0.8); Monocytes % (Auto) 2 % (0-12); Neutrophils # (Auto) 5.4 Thou/mm3 (1.8-7.7); Neutrophils % (Auto) 92 % (37-80); Nucleated Red Blood Cell % 0 /100 WBC (0); Platelet Count 274 Thou/mm3 (140-440); RDW Standard Deviation 55.2 fL (35.1-43.9); Red Blood Count 4.67 Miln/mm3 (4.50-5.90); White Blood Count 5.8 Thou/mm3 (3.8-10.6)
[2024-05-10 06:12] LABS: Alanine Aminotransferase 24 U/L (10-49); Albumin, Serum 3.7 gm/dL (3.4-4.8); Albumin/Globulin Ratio 1.2 (1.2-2.2); Alkaline Phosphatase 76 U/L (46-116); Anion Gap 5 (7-16); Aspartate Amino Transferase 16 U/L (0-34); BUN/Creatinine Ratio 21 Ratio (12-20); Bilirubin,Total 0.3 mg/dL (0.3-1.2); Blood Urea Nitrogen 21 mg/dL (9-23); Calcium 10.1 mg/dL (8.3-10.6); Calcium (Corrected) 10.3 mg/dL (8.5-10.1); Carbon Dioxide 30.6 mMol/L (20.0-31.0); Chloride 102 mMol/L (98-107); Estimated Creatinine Clearance 88.3 mL/min (>60); Free T4 (Free Thyroxine) 1.51 ng/dL (0.89-1.76); Globulin 3.2 gm/dL (2.3-3.5); Glucose 173 mg/dL (74-106); Magnesium 2.2 mg/dL (1.6-2.6); Osmolality,Calculated 282 (275-295); Phosphorous 2.2 mg/dL (2.4-5.1); Potassium 4.6 mMol/L (3.4-5.1); Sodium 138 mMol/L (136-145); Total Protein 6.9 gm/dL (5.7-8.2); Vancomycin,Trough 27.2 mcg/mL (5.0-10.0); eGFR > 60 See Note
--- NOTE | 2024-05-10 07:13 | XR_ITS ---
Examination: AP chest single view Technique one AP portable semiupright chest single view Exam date and time: May 10, 2024 0724 hours Comparison May 09, 2024 INDICATIONS: Shortness of breath this week. FINDINGS: Extensive bilateral lung opacity, severe in the left hemithorax Prominent vascular congestion Cardiac contour is obscured Prominent osteopenia IMPRESSION: Bilateral pneumonia, extensive left lung with layering left pleural fluid
[2024-05-10] MEDS: AMIODARONE HCL 200 MG TABLET PO ×2 (08:45→20:26)
[2024-05-10] MEDS: CEFEPIME INJ 1 GM in SODIUM CHLORIDE 0.9% (P) 50 ML IV ×2 (08:45→20:29)
[2024-05-10] MEDS: CLOPIDOGREL BISULFATE 75 MG TABLET PO (08:45)
[2024-05-10] MEDS: APIXABAN 2.5 MG TABLET 5 MG PO ×2 (08:45→20:30)
[2024-05-10] MEDS: PANTOPRAZOLE INJ 40 MG VIAL IVP (08:45)
[2024-05-10] MEDS: amLODIPine BESYLATE 5 MG TABLET 10 MG PO (08:45)
[2024-05-10] MEDS: INSULIN LISPRO (AdmeLOG) 1 UNIT/0.01 ML UNIT SC ×3 (12:40→20:30)
--- NOTE | 2024-05-10 15:42 | EVENTNT_ITS ---
Documentation for date of: 05/10/24 Event Note Event Note: The patient is a 73-year-old male with a past medical history of CVA with left- sided deficits, hypertension, hyperlipidemia, HFpEF, COPD, type II DM and BPH with indwelling catheter who presented to the ED on 05/09/2024 with shortness of breath and altered mental status. In the ED, patient was noted to be tachypneic with increased work of breathing. Chest x-ray showed left lung pneumonia with pleural effusion which was present since previous admission and chest CT showed left lung collapse with pleural effusion bilateral. ABG showed pCO2 of 83. The patient was given IV Solu-Medrol, started on IV antibiotics cefepime and Vanco and was admitted to the ICU for further monitoring for acute on chronic hypoxic respiratory failure. The patient never got intubated and was on BiPAP and ABGs have improved significantly. Today, the patient is more alert and stable to be downgraded back to the floors. He is currently on IV cefepime, Comycin, Solu-Medrol 40 mg daily. Pending cultures Will take over management on 05/11/2024. Case was discussed with senior resident Dr Thomas PGY-3 and attending physician, Dr Bandar Banuelos MD PGY-1
--- NOTE | 2024-05-10 16:54 | ESPR_ITS ---
<Statement entered by Suze Barney MD - 05/14/24 01:15> Patient was seen and examined by me personally. I have directly supervised and reviewed the above documentation by the team resident and agree with its findings with any exceptions or additional findings as below. Plan of care was discussed with the attending, Dr. Aleman. Suze Barney, PGY-2 Documentation for date of: 05/10/24 Subjective Subjective Interval history: Patient was seen and examined in the ICU. Does not want to use BiPAP, continued oxygen through nasal cannula and saturations are maintaining well. No acute overnight events. Vitals are stable. ABG showed respiratory acidosis with metabolic alkalosis. CBC and CMP are within limits. Repeat chest x-ray showed collapse of left lung and will continue chest physiotherapy. As the patient is alert, awake and able to protect his own airway we will downgrade patient to the floors for further management. Recommended to continue BiPAP. Exam Vital Signs Temp Pulse Resp BP Pulse Ox O2 Del Method O2 Flow Rate 98.5 F 70 18 174/72 H 97 Nasal Cannula 4 05/10/24 12:00 05/10/24 12:02 05/10/24 12:02 05/10/24 12:00 05/10/24 12:02 05/10/24 12:00 05/10/24 12:02 FiO2 35 05/10/24 08:00 Narrative Exam General: Awake and in no distress with oxygen through nasal cannula. Morbidly obese. HEENT: Normocephalic, atraumatic, mucous membranes moist. Brownish secretions noted at the angle of mouth. Heart: Regular rate and rhythm, no murmurs. Lungs: Bilateral decreased breath sounds noted due to body habitus. Abdomen: Soft, nondistended, nontender, positive bowel sounds. ?No guarding or rebound tenderness. Neurologic: Lethargic with decreased movements noted on left half of the body. Extremities: No edema. Skin: No rash or ecchymoses. Objective Labs 05/11/24 05:38 05/11/24 05:38 Labs: Laboratory Results - last 24 hr 05/10/24 05/10/24 05:13 05:26 WBC 5.8 D RBC 4.67 Hgb 12.3 L Hct 40.0 L MCV 86 MCH 26.3 MCHC 30.8 L RDW Std Deviation 55.2 H Plt Count 274 Neut % (Auto) 92 H Lymph % (Auto) 6 L Hand % (Auto) 2 Eos % (Auto) 0 Baso % (Auto) 0 Neut # (Auto) 5.4 Lymph # (Auto) 0.3 L Hand # (Auto) 0.1 Eos # (Auto) 0.0 Baso # (Auto) 0.0 Immature Gran # (Auto) 0.02 H Absolute Nucleated RBC 0.00 Immature Gran % 0 Nucleated RBC % 0 Puncture Site Right Radial ABG pH 7.42 D ABG pCO2 51 H D ABG pO2 80 L ABG HCO3 33 H ABG O2 Saturation 97 ABG Base Excess 7 H FiO2 21 Sodium 138 Potassium 4.6 Chloride 102 Carbon Dioxide 30.6 Anion Gap 5 L BUN 21 Creatinine 1.0 Estim Creat Clear Calc 88.3 eGFR > 60 BUN/Creatinine Ratio 21 H Glucose 173 H Calculated Osmolality 282 Calcium 10.1 Corrected Calcium 10.3 H Phosphorus 2.2 L Magnesium 2.2 Total Bilirubin 0.3 AST 16 ALT 24 Alkaline Phosphatase 76 Total Protein 6.9 Albumin 3.7 Globulin 3.2 Albumin/Globulin Ratio 1.2 Free T4 1.51 Vancomycin Trough 27.2 H* ABG Interpretation ABG results: 05/09/24 05/09/24 05/09/24 07:34 09:35 14:48 ABG pH 7.23 L 7.24 L ABG pCO2 83 H* 78 H* ABG pO2 69 L 77 L ABG HCO3 35 H 34 H ABG O2 Saturation 93 95 ABG Base Excess 5 H 4 H VBG pH 7.38 VBG pCO2 53 VBG pO2 188 H VBG Base Excess 5 H 05/10/24 05:13 ABG pH 7.42 D ABG pCO2 51 H D ABG pO2 80 L ABG HCO3 33 H ABG O2 Saturation 97 ABG Base Excess 7 H VBG pH VBG pCO2 VBG pO2 VBG Base Excess Quality Measures Quality Measures none Advance care planning discussed with:: patient Assessment & Plan Assessment Current Active Medications: Generic Name Dose Route Start Last Admin Trade Name Freq PRN Reason Stop Dose Admin Acetaminophen 650 mg 05/09/24 08:48 Acetaminophen 325 Mg Tablet PO 06/08/24 08:47 Q4HR PRN PAIN SCALE 1-3 (mild Albuterol 5 mg 05/09/24 13:00 05/10/24 12:02 Albuterol Rt 2.5 Mg/0.5 Ml Nebu INH 06/08/24 12:59 Not Given Q6HRRT CIPRIANO Amiodarone HCl 200 mg 05/09/24 09:00 05/10/24 08:45 Amiodarone Hcl 200 Mg Tablet PO 06/08/24 08:59 200 mg BID CIPRIANO Administration Amlodipine Besylate 10 mg 05/10/24 09:00 05/10/24 08:45 Amlodipine Besylate 5 Mg Tablet PO 06/09/24 08:59 10 mg QDAY CIPRIANO Administration Apixaban 5 mg 05/09/24 09:00 05/10/24 08:45 Apixaban 2.5 Mg Tablet PO 06/08/24 08:59 5 mg BID CIPRIANO Administration Clopidogrel Bisulfate 75 mg 05/09/24 09:00 05/10/24 08:45 Clopidogrel Bisulfate 75 Mg Tablet PO 06/08/24 08:59 75 mg QDAY CIPRIANO Administration Dextrose 25 ml 05/09/24 08:55 Dextrose 50%-Water Inj 50 Ml Syringe IV 06/08/24 08:54 Q15MIN PRN BG 50-70 responsive npo pt Dextrose 50 ml 05/09/24 08:55 Dextrose 50%-Water Inj 50 Ml Syringe IV 06/08/24 08:54 Q15MIN PRN BG <50 OR BG <70 & pt unresponsive Glucagon 1 mg 05/09/24 08:55 Glucagon Inj 1 Mg Vial IM Q15MIN PRN BG <70, and no IV access Cefepime HCl 1 gm/ Sodium 50 mls @ 100 mls/hr 05/09/24 09:00 05/10/24 10:11 Chloride IV 05/16/24 08:59 Infused Q12HR CIPRIANO Infusion Insulin Human Lispro 0 unit 05/09/24 11:30 05/10/24 16:48 Insulin Lispro (Admelog) 1 Unit/0.01 Ml Unit SC 06/08/24 11:29 1 unit ACHS CIPRIANO Administration Protocol Magnesium Hydroxide 30 ml 05/09/24 08:48 Milk Of Magnesia Susp 30 Ml Udc PO 06/08/24 08:47 QDAY PRN CONSTIPATION Methylprednisolone Sodium Succinate 40 mg 05/10/24 09:00 05/10/24 08:45 Methylprednisolone Sod Succ 40 Mg Vial IVP 12/03/24 08:59 40 mg QDAY CIPRIANO Administration Pantoprazole Sodium 40 mg 05/09/24 09:00 05/10/24 08:45 Pantoprazole Inj 40 Mg Vial IVP 06/08/24 08:59 40 mg QDAY CIPRIANO Administration Plan 73-year-old male with past medical history of CVA with left-sided deficits, hypertension, hyperlipidemia, HFpEF 50% on 11/05, history of COPD, history of type 2 diabetes A1c 8.4 on 10/06 and BPH with indwelling catheter presented to the emergency department from a [facility] facility due to shortness of breath and diagnosed to have AHRF 2/2 combined aspiration pneumonia and influenza NEURO Patient is awake, alert, and oriented x3, following commands, conversational. #No active problems # History of JQG-[id number]-[id number] residual deficit, bedridden. -Will continue Plavix CARDIO # History of HFpEF (EF 50 to 55% on 10/2023) -Patient is using furosemide 20 Mg p.o. daily. -On physical examination, patient does not appear to be in heart failure -no pedal edema, JVD absent. -EKG done on 05/09/2024-normal sinus rhythm, Q waves in inferior leads and V1- V6, poor R wave progression. -Echo done on 10/2023 - Normal LV size. Probable normal systolic function. Estimated EF 50-55%. RV and RA not well visualized. Mild LA dilatation. Moderate posterior MAC. Mild AV sclerosis without stenosis. -BNP is 149, Trop I - <0.020. Plan -Withheld Lasix for now as patient does not appear fluid overloaded. # History of paroxysmal atrial fibrillation -Patient is on Eliquis Plan -Will continue Eliquis 5 Mg twice daily and amiodarone 200 Mg p.o. twice daily # History of hypertension -Blood pressures at the time of admission is within normal limits. -Will resume his home medication if needed. PULM # Acute on chronic hypoxic respiratory failure -Ddx: Combined CPAP noncompliance, aspiration and atelectasis of left lung with underlying COPD, obstructive sleep apnea, OHS -Patient is supposed to use oxygen at home 05/01 and also using CPAP at night but noncompliant -Patient was recently intubated on 04/18/2024 for hypoxic respiratory failure. -Again presented with altered mental status and low oxygen saturations and started on BiPAP. -Chest x-ray left pleural effusion with bilateral pneumonia. -CT showed Bibasilar pneumonia. Mild to moderate right pleural effusion -ABG showed pH 7.24, pCO2 78, PaO2 77, bicarb 34. Plan -blood, urine and sputum secretions culture were sent, negative after 24 hours. -Patient was kept on BiPAP. -Started on cefepime and vancomycin [05/09-present -Respiratory therapy and chest physiotherapy were ordered. # History of COPD -Patient is using oxygen and CPAP at home -Stop smoking years ago. -On examination, there is no wheeze heard -Will continue noninvasive mechanical ventilation and maintain SpO2 between 88 and 92. GI #No active problems NEPHRO # Respiratory acidosis with compensated metabolic alkalosis -DDX: Could be due to underlying chronic COPD with compensatory metabolic alkalosis -Repeat VBG was within limits. ENDO # History of diabetes -Patient is using metformin 500 Mg p.o. twice daily at his nursing facility -HbA1c is 6 on 04/20/2024 Plan -Patient is on insulin sliding scale HEME # Leukocytosis -WBC count at the time of admission is 12.5 -Likely due to aspiration pneumonia -Will continue the antibiotics for now MSK # Chronic back pain -Patient is using [place] at home : #BPH with indwelling catheter Patient came with garcia catheter from SNF. Plan: -cont tamsulosin SKIN #No active problems DVT prophylaxis: Eliquis GI prophylaxis: Pantoprazole 40 Mg IV Diet: Low carbohydrate and cardiac diet Garcia: Present Lines: Peripheral Antibiotics: vancomycin and cefepime CODE STATUS: FULL Reason for ICU care: Acute on chronic hypoxic respiratory failure Patient plan of care was discussed with the attending employment officer, Dr. Aleman and senior resident Dr. Ector Rollins, PGY1 Attending Provider Attestation/Addendum Patient seen and examined with above resident, Silvestre Rollins MD. I agree with the findings, assessment, and plan of care as documented except for any differences below. Patient successfully weaned off of BiPAP though this will likely be beneficial in the long run overnight. Patient continues to require chest physiotherapy given predisposition to mucous plugging and lobar atelectasis specifically on the left side. Patient stable on nasal cannula. Mobilization will be integral to longer on that he remains bedbound and seems to be so at the facility as well. Patient tolerating albuterol and saline nebs along with chest physio at this point which has helped we recruit and optimize gas exchange. Will plan for transfer to telemetry for ongoing management prior to discharge. Patient not an ideal candidate for bronchoscopy given his morbid obesity and high likelihood for need for intubation which is why he fortunately has not been able to receive the procedure again on this admission as well. Patient counseled at bedside and updated on plan of care. Total critical care time: I personally spent 40 minutes for review of physiologic parameters, directing plan of care throughout the day, counseling patient at bedside, and coordination of care with medicine. This is exclusive of time spent teaching housestaff or performing separate billable procedures. Patient continues to require critical care services for acute on chronic hypoxic/hypercapnic respiratory failure in the setting of OHS/mucous plugging with increased risk for further morbidity and mortality.
[2024-05-11] VITALS (16 sets, daily range): BP systolic 148–160; BP diastolic 68–80; PULSE 61–92; RESP 17–24; TEMP 36.4–36.7; O2SAT 92–99; BMI 41.5
[2024-05-11] MEDS: ALBUTEROL RT 2.5 MG/0.5 ML NEBU 5 MG INH ×3 (01:56→13:47)
[2024-05-11 06:01] LABS: Basophils % (Auto) 0 % (0-2.5); Eosinophils % (Auto) 0 % (0-10); Hemoglobin 12.7 g/dL (13.5-16.0); Immature Granulocytes % (Auto) 0 % (0-0); Immature Granulocytes Auto 0.04 Thou/mm3 (0.00-0.00); Lymphocytes # (Auto) 0.5 Thou/mm3 (1.0-4.8); Lymphocytes % (Auto) 6 % (10-50); Mean Corpuscular HGB Conc 31.8 g/dl (31.0-37.0); Mean Corpuscular Hemoglobin 26.3 pg (25.0-35.0); Mean Corpuscular Volume 83 fL (80-100); Monocytes # (Auto) 0.7 Thou/mm3 (0.0-0.8); Monocytes % (Auto) 7 % (0-12); Neutrophils % (Auto) 87 % (37-80); Nucleated Red Blood Cell % 0 /100 WBC (0); Platelet Count 295 Thou/mm3 (140-440); RDW Standard Deviation 53.6 fL (35.1-43.9); Red Blood Count 4.83 Miln/mm3 (4.50-5.90); White Blood Count 9.3 Thou/mm3 (3.8-10.6)
[2024-05-11 06:34] LABS: Alanine Aminotransferase 25 U/L (10-49); Albumin, Serum 3.9 gm/dL (3.4-4.8); Albumin/Globulin Ratio 1.3 (1.2-2.2); Alkaline Phosphatase 70 U/L (46-116); Anion Gap 5 (7-16); Aspartate Amino Transferase 15 U/L (0-34); BUN/Creatinine Ratio 27 Ratio (12-20); Bilirubin,Total 0.4 mg/dL (0.3-1.2); Blood Urea Nitrogen 24 mg/dL (9-23); Calcium 9.8 mg/dL (8.3-10.6); Calcium (Corrected) 9.9 mg/dL (8.5-10.1); Carbon Dioxide 30.6 mMol/L (20.0-31.0); Chloride 101 mMol/L (98-107); Creatinine (Component) 0.9 mg/dL (0.6-1.3); Estimated Creatinine Clearance 98.1 mL/min (>60); Globulin 3.1 gm/dL (2.3-3.5); Glucose 157 mg/dL (74-106); Osmolality,Calculated 280 (275-295); Potassium 4.2 mMol/L (3.4-5.1); Sodium 137 mMol/L (136-145); Vancomycin,Random 13.2 mcg/mL; eGFR > 60 See Note
[2024-05-11] MEDS: INSULIN LISPRO (AdmeLOG) 1 UNIT/0.01 ML UNIT SC ×2 (07:29→13:30)
[2024-05-11] MEDS: APIXABAN 2.5 MG TABLET 5 MG PO (08:53)
[2024-05-11] MEDS: AMIODARONE HCL 200 MG TABLET PO (08:53)
[2024-05-11] MEDS: amLODIPine BESYLATE 5 MG TABLET 10 MG PO (08:54)
[2024-05-11] MEDS: CEFEPIME INJ 1 GM in SODIUM CHLORIDE 0.9% (P) 50 ML IV (08:54)
[2024-05-11] MEDS: CLOPIDOGREL BISULFATE 75 MG TABLET PO (08:54)
[2024-05-11] MEDS: PANTOPRAZOLE INJ 40 MG VIAL IVP (08:55)
--- NOTE | 2024-05-11 12:13 | PC.SS ---
FLUE BLOWER confirmed with SNF that patient's oxygen level needs to be at 3L to return to facility. Patient currently on 5L. FLUE BLOWER updated bedside nurse.
--- NOTE | 2024-05-11 15:27 | ESDS_ITS ---
<Statement entered by Shahram Portillo MD - 05/17/24 14:55> 73-year-old with multiple comorbidities including hypertension, hyperlipidemia, type 2 diabetes mellitus, CVA with left-sided residual deficits, heart failure with preserved EF with a EF 50% and COPD on 3 L supplemental oxygen, BPH with chronic indwelling Gutiérrez catheter who presents with acute hypoxic hypercapnic r espiratory failure and subsequently requiring ICU level of care. Currently, patient is on 3 L supplemental oxygen, talking without any difficulties and stated that he wants to be discharged. As of now, he patient is hemodynamically stable and plan to discharge the patient. Advised patient to comply with BiPAP and if he was not to use BiPAP the likelihood of him needing intubation is very high. All of his questions were answered and patient verbalized understanding. As a result, plan to discharge the patient. I reviewed above note and agree with findings and plans. I have also personally examined the patient with medicine team and went over assessment and plan with medical team including general internal medicine physician and resident physician. <Statement entered by Gerri Thomas DO - 05/11/24 19:36> Senior attestation: Patient was examined and case was reviewed with team including attending physician. Note reviewed, I agree with most of its contents and agree with the patient's care. Gerri Thomas DO PGY-3 Planned Discharge Date 05/11/24 DS: Providers Provider Date of admission: 05/09/24 08:57 Primary care physician: Physician No Primary/Family Admitting Provider: Wilbur Aleman MD Attending Provider on Admission: Wilbur Aleman MD Attending Provider on DC: Shahram Portillo MD Discharging Provider: Shahram Portillo MD DS: Diagnosis Problem List Completed Was Problem List Reviewed/Reconciled?: Yes Hospital Course Hospital Course Hospital course: The patient is a 73-year-old male with a past medical history of CVA with left- sided deficits, hypertension, hyperlipidemia, HFpEF, COPD, type II DM and BPH with indwelling catheter who presented to the ED on 05/09/2024 with shortness of breath and altered mental status. In the ED, patient was noted to be tachypneic with increased work of breathing. Chest x-ray showed left lung pneumonia with pleural effusion which was present since previous admission and chest CT showed left lung collapse with pleural effusion bilateral. ABG showed pCO2 of 83. The patient was given IV Solu-Medrol, started on IV antibiotics cefepime and Vanco and was admitted to the ICU for further monitoring for acute on chronic hypoxic respiratory failure. The patient never got intubated and was on BiPAP and ABGs improved significantly and he was downgraded back to the floors. Urine culture returned positive for Proteus Mirabilis sensitive to Augmentin. Today, the patient is clinically and hemodynamically stable, saturating 96% on 3 L of oxygen and is medically clear for discharge. He will continue antibiotics Augmentin and doxycycline for another 12 days to cover aspiration pneumonia and Proteus UTI. Patient has been placed on a LAMA and ICS combination, fluticasone-salmeterol and will be on a prednisone taper for 5 days. He has been advised to stop the tobacco chews as it is possible that this is the source of his recurrent aspiration pneumonia. He is recommended to follow-up with his primary care provider within 1 week of discharge. #Acute on chronic hypoxic respiratory failure #Aspiration pneumonia #History of COPD #Proteus UTI #History of HFpEF #History of CVA with left-sided residual deficits #BPH with indwelling catheter Case was discussed with senior resident Dr Thomas PGY-3 and attending physician, Dr Bandar Banuelos MD PGY-1 Status at Discharge Overall status at discharge: patient is back to baseline Time Spent with Patient Time attestation: Total time spent providing and/or coordinating discharge services:more than 30minutes Exam Vital Signs Temp Pulse Resp BP Pulse Ox O2 Del Method O2 Flow Rate 97.9 F 70 20 151/69 H 92 L Nasal Cannula 2 05/11/24 12:00 05/11/24 13:49 05/11/24 13:49 05/11/24 12:00 05/11/24 14:35 05/11/24 14:35 05/11/24 14:35 FiO2 35 05/11/24 00:00 Narrative Exam GENERAL: AAOX3 NEURO: SPARERIBS TRIMMER grossly intact, moves extremities x4 HEENT: Moist mucosa. Eyes open, symmetrical, & clear CARDIO: No chest pain on palpation. Heart RRR, no obvious murmurs PULM: No noted coughing/dyspnea. Lungs CTA B/L, no wheezing, saturating 96% on 3L GI: Abdomen soft, nondistended, no pain on palpation. BSx4 URO/PROPELLER INSPECTOR:: No further abnormalities noted. Gutiérrez catheter indwelling SKIN/MSK/EXT: Bilateral pitting edema 2+ Discharge Plan Plan Patient Disposition: Xfer Skilled Nsg Fac (SNF) Care Plan Goals: Follow up with your PCP within one week of discharge Continue antibiotics augmentin and doxycycline for another 12 days Use COPD medications and inhalers as prescribed Continue all other medications as prescribed You need STOP chewing tobacco to prevent aspiration and hospitalization If your symptoms re-occur or worsen, please return to the ED immediately Prescriptions/Referrals Prescriptions/Med Rec: New doxycycline hyclate 100 mg capsule 100 mg PO BID 12 Days Qty: 24 0RF amoxicillin-pot clavulanate 875-125 mg tablet 1 tab PO BID 12 Days Qty: 24 0RF pantoprazole [Protonix] 40 mg tablet,delayed release (DR/EC) 40 mg PO QDAY 14 Days Qty: 14 0RF fluticasone propion-salmeterol [Advair Diskus] 250-50 mcg/dose blister with device 1 inh inhalation Q12H Qty: 60 0RF prednisone 5 mg tablets,dose pack 5 mg PO QDAY Qty: 21 0RF Continued clopidogrel [Plavix] 75 MG tablet 75 mg PO QDAY Qty: 0 magnesium hydroxide [Milk of Magnesia] 30 ML/CUP suspension 30 ml PO Q72H PRN (Reason: Constipation) Qty: 0 gabapentin 300 MG capsule 300 mg PO TID Qty: 0 hydrocodone-acetaminophen 5-325 mg tablet 1 tab PO Q6H PRN (Reason: Pain (Scale Score 7-10)) tamsulosin [Flomax] 0.4 mg capsule 0.4 mg PO QDAY Qty: 30 0RF amiodarone 200 mg tablet 200 mg PO BID Qty: 30 1RF Rx Instructions: HOLD FOR HR <60 apixaban 5 mg tablet 5 mg PO BID Qty: 60 0RF amlodipine 10 mg tablet 10 mg PO QDAY Qty: 30 0RF carvedilol 12.5 mg Tablet 12.5 mg PO BIDWM 30 Days Qty: 60 0RF ipratropium-albuterol 0.5 mg-3 mg(2.5 mg base)/3 mL Solution For Nebulization 3 ml INH Q4HRRT 30 Days Qty: 90 0RF furosemide 20 mg tablet 20 mg PO Q72H 30 Days Qty: 10 0RF ferrous sulfate 325 mg (65 mg iron) Tablet 325 mg PO QDAY metformin 500 mg Tablet 500 mg PO BIDWMEAL bisacodyl [Dulcolax (bisacodyl)] 10 mg Suppository 10 mg IA Q72H Rx Instructions: ADMINISTER FOLLOWING SHIFT IF MOM INEFFECTIVE hydralazine 25 mg tablet 50 mg PO TID Discontinued levofloxacin 750 mg tablet 750 mg PO QDAY Qty: 1 0RF Rx Instructions: once on Friday 04/27 Referrals: No Primary/Family,Physician [Primary Care Provider] - Patient/Caregiver Discharge Instructions Discharge Activity: activity as tolerated Education Materials: Asthma and COPD Print Language: Luxembourgish Stand Alone Forms: Dora Award Info., Patient Portal Info Letter Discharge Order Discharge Orders: Discharge (Routine); Ordered 05/11/24 Ordered By: Gerri Thomas Quality Discharge Quality Measures VTE prophylaxis
--- NOTE | 2024-05-11 15:35 | PC.SS ---
YEAST CULTURE DEVELOPER contacted [facility] to initiate transport. Authorization number is [id number]. Preferred transport [place].
--- NOTE | 2024-05-11 15:36 | PC.SS ---
MARKETING SUPPORT MANAGER received confirmation from dispatch for transport. [facility] scheduled for 05:30 pm today.
--- NOTE | 2024-05-11 15:45 | PC.SS ---
Rounding Note: Patient cleared for discharge to SNF.
--- NOTE | 2024-05-11 17:38 | PC.NURSE ---
gave report to steven at [facility]. pt left at 1730 with ems, nc 2l, alert x2, no resp distress, chronic garcia in pace
== END 2024-05-11 17:30 | disposition skilled nursing facility (03) | DRG 189 ==
LOC: SERX 06:33 → SERHOLD 09:08 → S2SX 15:59 → SERHOLD 05-10 10:34 → S2SX 05-10 10:34 → S2NX 05-10 13:08
PROVIDERS: Emergency Medicine; Student in an Organized Health Care Education/Training Program; Admitting Provider Internal Medicine Critical Care Medicine; Emergency Provider Emergency Medicine; Visit Provider Internal Medicine
DX: J96.21 Acute and chronic respiratory failure with hypoxia (principal); J69.0 Pneumonitis due to inhalation of food and vomit; N39.0 Urinary tract infection, site not specified; Z68.41 Body mass index [BMI] 40.0-44.9, adult; E87.4 Mixed disorder of acid-base balance; G93.49 Other encephalopathy; I50.32 Chronic diastolic (congestive) heart failure; I69.354 Hemiplegia and hemiparesis following cerebral infarction affecting left non-dominant side; J96.22 Acute and chronic respiratory failure with hypercapnia; I11.0 Hypertensive heart disease with heart failure; B96.4 Proteus (mirabilis) (morganii) as the cause of diseases classified elsewhere; E66.01 Morbid (severe) obesity due to excess calories; E11.9 Type 2 diabetes mellitus without complications; E78.5 Hyperlipidemia, unspecified; G89.29 Other chronic pain; M54.9 Dorsalgia, unspecified; I25.10 Atherosclerotic heart disease of native coronary artery without angina pectoris; I48.0 Paroxysmal atrial fibrillation; J44.9 Chronic obstructive pulmonary disease, unspecified; N40.0 Benign prostatic hyperplasia without lower urinary tract symptoms; Z91.199 Patient's noncompliance with other medical treatment and regimen due to unspecified reason; Z74.01 Bed confinement status; Z72.0 Tobacco use; Z79.01 Long term (current) use of anticoagulants; Z79.02 Long term (current) use of antithrombotics/antiplatelets; Z79.84 Long term (current) use of oral hypoglycemic drugs; Z79.899 Other long term (current) drug therapy
CPT/HCPCS: 36415; 36600; 70450; 71045; 71275; 74177; 80053; 80202; 80307; 80320; 81001; 82140; 82150; 82803; 83605; 83690; 83735; 83880; 84100; 84145; 84439; 84443; 84484; 85025; 85379; 85610; 85652; 85730; 86140; 87040; 87077; 87081; 87086; 87186; 87400; 87634; 87811; 93005; 94640; 94660; 94664; 94667; 96365; 96366; 96367; 96375; 96376; 99285; A4649; A9270; J0692; J1815; J2470; J2919; J3370; J3371; J3475; J7040; J7050; Q9967; G0480

== ENCOUNTER 2024-05-11 19:52 | Inpatient (IN) | payer MEDICARE, MEDICAID, SELFPAY ==
[2024-05-11 19:55] VITALS: BP 106/72; PULSE 80; RESP 24; TEMP 36.5; O2SAT 95; BMI 40.1
--- NOTE | 2024-05-11 19:55 | PC.NURSE ---
PATIENT WAS BROUGHT TO ER ROOM 2 FOR RESPIRATORY DISTRESS FROM [facility]. PATIENT ARRIVED TO THE ER BEING BAGGED WITH BY FIRE DEPARTMENT AND EMS. PATIENT WAS PLACED ON DISTILLER WITH VITALS HR 80, SPO2 95% ON OXY MASK, BP 106/72, R 24. DR COLIN, RT, AND ICU RESIDENT, MEDICINE RESIDENT AT BED SIDE TO INTUBATED PATIENT.
[2024-05-11] MEDS: ETOMIDATE INJ 2 MG/ML VIAL 10 ML 20 MG IVP (20:07)
[2024-05-11] MEDS: ROCURONIUM INJ 10 MG/ML VIAL 10 ML 100 MG IVP (20:08)
--- NOTE | 2024-05-11 20:19 | XR_ITS ---
11 AP chest single view Technique: AP portable chest single view Exam date and time: May 11, 2024 0832 hrs. Comparison April 18, 2024 Indications: Post orogastric tube placement Findings: Orogastric tube in stomach tip below the level film Cardiac contour is largely obscured by the patient's pneumonia The film is rotated LPO Extensive bilateral lung opacity Tracheal tube tip approximately 5.5 cm above gianluca Right subclavian central line tip SVC Impression: Extensive pneumonia ARDS pattern
[2024-05-11] MEDS: MIDAZOLAM/NS 100 MG IVPB 100 MG/100 ML BAG IV ×2 (20:23→23:54)
[2024-05-11] MEDS: fentaNYL 2,500 MCG/250 ML BAG 2,500 MCG/250 ML BAG IV (20:25)
--- NOTE | 2024-05-11 20:38 | EDNOTE_ITS ---
ED SOB =RME/HPI General Chief Complaint: Shortness of Breath/Dyspnea Stated Complaint: SOB Arrival date/time: 05/11/24 19:52 RME / HPI RME / HPI Narrative: Dr. Betancourt?s Main ED Evaluation: Patient is a 73-year-old male with history of COPD, hypertension, CAD, CHF, diabetes who was brought in by EMS directly from the rehab facility minutes after being dropped off there. Patient was seen by me at 2038. Patient was admitted here in the hospital and was discharged this evening. Patient was brought by EMS to the rehab facility and staff promptly called EMS for respiratory depression. When EMS got there the patient had decreased mentation but had no respiratory depression. On arrival the patient had tachypnea and had shallow breathing. He was altered and not responding to commands. Patient unable to contribute to the history and was promptly intubated. Related Data Home Medications ?Medication ?Instructions ?Recorded ?Confirmed clopidogrel 75 mg tablet (Plavix) 75 mg PO QDAY #0 tabs 12/23/15 05/09/24 gabapentin 300 mg capsule 300 mg PO TID #0 caps 01/10/17 05/09/24 magnesium hydroxide 400 mg/5 mL 30 ml PO Q72H PRN Constipation #0 01/10/17 05/09/24 oral suspension (Milk of Magnesia) mL ferrous sulfate 325 mg (65 mg 325 mg PO QDAY 10/07/23 05/09/24 iron) tablet hydrocodone 5 mg-acetaminophen 325 1 tab PO Q6H PRN Pain (Scale Score 10/19/23 05/09/24 mg tablet 7-10) bisacodyl 10 mg rectal suppository 10 mg MA Q72H 11/27/23 05/09/24 (Dulcolax (bisacodyl)) metformin 500 mg tablet 500 mg PO BIDWMEAL 11/27/23 05/09/24 hydralazine 25 mg tablet 50 mg PO TID 05/09/24 05/09/24 Previous Rx's ?Medication ?Instructions ?Recorded amiodarone 200 mg tablet 200 mg PO BID #30 tabs 10/23/23 amlodipine 10 mg tablet 10 mg PO QDAY #30 tabs 10/23/23 apixaban 5 mg tablet 5 mg PO BID #60 tabs 10/23/23 tamsulosin 0.4 mg capsule (Flomax) 0.4 mg PO QDAY #30 caps 10/23/23 carvedilol 12.5 mg tablet 12.5 mg PO BIDWM 30 days #60 tabs 04/21/24 furosemide 20 mg tablet 20 mg PO Q72H 30 days #10 tabs 04/21/24 ipratropium 0.5 mg-albuterol 3 mg 3 ml INH Q4HRRT 30 days #90 mL 04/21/24 (2.5 mg base)/3 mL nebulization soln amoxicillin 875 mg-potassium 1 tab PO BID 12 days #24 tabs 05/11/24 clavulanate 125 mg tablet doxycycline hyclate 100 mg capsule 100 mg PO BID 12 days #24 caps 05/11/24 fluticasone 250 mcg-salmeterol 50 1 inh inhalation Q12H #60 ea 05/11/24 mcg/dose blistr powdr for inhalation (Advair Diskus) pantoprazole 40 mg tablet,delayed 40 mg PO QDAY 2 weeks #14 tabs 05/11/24 release (Protonix) prednisone 5 mg tablets in a dose 5 mg PO QDAY #21 tabs 05/11/24 pack Allergies Allergy/AdvReac Type Severity Reaction Status Date / Time No Known Allergies Allergy Verified 05/09/24 05:50 Review of Systems Review of Systems ROS Unobtainable: unobtainable due to medical condition ED Exam Narrative Physical exam: GENERAL APPEARANCE: altered, does not respond to commands, in acute respiratory distress VITALS: All vitals were reviewed and the pulse ox is 100% via mechanical ventilation after intubation, which is abnormal according to my interpretation. HEENT: Normocephalic, atraumatic; pupils equal, round, reactive to light; EOMI; mucous membranes pink, moist; oropharynx clear NECK: Supple LUNGS: Tachypneic, shallow breathing; no wheezes, +rales and rhonchi B/L HEART: Regular rate, regular rhythm; normal S1, S2; no murmurs ABDOMEN: morbid obesity. non distended; normal BS; soft, no tenderness, no guarding, no rebound; no masses, no organomegaly, no hernia BACK: no CVA tenderness EXTREMITIES: atraumatic; no edema NEUROLOGIC: altered SKIN: warm, dry, normal color; no rashes Course Course Course Narrative: CXR is ordered for determining the etiology of shortness of breath. Quality Measures none Orders Category Date Time Status 24 HR Medical Restraints Q2HR Care 05/11/24 23:18 Active Arterial Line Insertion Set Up ONCE Care 05/11/24 20:35 Active Arterial Line Insertion Set Up ONCE Care 05/11/24 20:43 Active Supervisor Lathing STAT Care 05/11/24 20:42 Active Continuous Pulse Oximetry ONCE Care 05/11/24 20:42 Completed EKG (ED ONLY) *Do not use* NOW Care 05/11/24 20:18 Completed Insert IV STAT Care 05/11/24 20:42 Completed Insert NG / OG tube NOW Care 05/11/24 20:14 Active Intake and Output Routine Care 05/11/24 20:42 Ordered Intubation NOW Care 05/11/24 20:39 Completed Urinary Catheter STAT Care 05/11/24 20:[address] head/brain wo con Stat Exams 05/11/24 20:53 Completed EKG (ED Only) Stat Exams 05/11/24 20:18 Ordered XR chest 1V post procedure Stat Exams 05/11/24 20:19 Completed XR chest 1V post procedure Stat Exams 05/11/24 22:26 Completed ABG [Arterial Blood Gas] Stat Lab 05/11/24 22:09 Completed B-Type Natriuretic Peptide Stat Lab 05/11/24 21:10 Completed CBC Stat Lab 05/11/24 21:10 Completed Comprehensive Metabolic Panel Stat Lab 05/11/24 21:10 Completed Lipase Stat Lab 05/11/24 21:10 Completed Magnesium Stat Lab 05/11/24 21:10 Completed Partial Thromboplastin Time Stat Lab 05/11/24 21:10 Completed Prothrombin Time with INR Stat Lab 05/11/24 21:10 Completed Sputum Culture and Gram Stain Stat Lab 05/11/24 21:10 Received Troponin I Stat Lab 05/11/24 21:10 Completed Etomidate Inj [Amidate Inj] Med 05/11/24 19:52 Discontinued 20 mg .ROUTE .STK-MED ONE Etomidate Inj [Amidate Inj] Med 05/11/24 19:56 Discontinued 20 mg IVP X1 ONE Midazolam/Ns 100 mg Ivpb [Versed Pf Inj in Ns Premix] Med 05/11/24 20:14 Discontinued 100 mg in 100 ml IV .STK-MED Midazolam/Ns 100 mg Ivpb [Versed Pf Inj in Ns Premix] Med 05/11/24 20:22 Discontinued 100 mg in 100 ml IV 1 mg/hr Piper/Tazo Inj [Zosyn Inj] 3.375 gm Med 05/11/24 22:57 Discontinued Sodium Chloride 0.9% (P) [Ns 0.9% (P)] 50 ml IV X1 Rocuronium Inj [Zemuron Inj] Med 05/11/24 19:53 Discontinued 100 mg .ROUTE .STK-MED ONE Rocuronium Inj [Zemuron Inj] Med 05/11/24 19:56 Discontinued 100 mg IVP X1 ONE Vancomycin Inj 1,000 mg Med 05/11/24 22:58 Discontinued Sodium Chloride 0.9% 250 ml [Ns] 250 ml IV X1 fentaNYL 2,500 MCG/250 ML BAG [Sublimaze Inj 2,500 MCG/ Med 05/11/24 20:14 Discontinued 250 ML BAG] 2,500 mcg in 250 ml IV .STK-MED fentaNYL 2,500 MCG/250 ML BAG [Sublimaze Inj 2,500 MCG/ Med 05/11/24 20:22 Discontinued 250 ML BAG] 2,500 mcg in 250 ml IV 25 mcg/hr Oxygen Delivery NOW RT 05/11/24 20:42 Active Volume Ventilator Stat RT 05/11/24 Active Vital Signs Vital signs: Vital Signs Temperature 97.7 F 05/11/24 19:55 Pulse Rate 80 05/11/24 19:55 Respiratory Rate 24 H 05/11/24 19:55 Blood Pressure 106/72 05/11/24 19:55 Pulse Oximetry (%) 95 05/11/24 19:55 Oxygen Delivery Method Oxy Mask 05/11/24 19:55 Procedures -ED Central Line Placement Right SC: Time Out Performed: No Patient Placed on Monitor/Pulse Ox: Yes Hand Hygiene: scrub and soap & water Max Sterile Barrier Techniques used: cap, mask, sterile gown, sterile gloves and sterile full body drape Central Line Prep: Chlorhexidine scrub Local Anesthetic: lidocaine 2% Amount of anesthesia used (mL): 5 Ultrasound Used for Placement: No Sterile Technique if Ultrasound used, including sterile gel: yes Central Line Lumen Inserted: triple Post Procedure: sutured in place, good blood return, all ports aspirated, flushed, capped and sterile dressing applied Post Procedure X-Ray: tip of catheter in good position and no pneumothorax seen Patient Tolerated Procedure: well and no complications Intubation Time out performed: No sedative: Etomidate Mg Given: 20 paralytic: Rocuronium Mg Given: 100 Laryngoscope: fiber optic video scope Assist Device Used: fiber optic device ET Tube Size: 8 ET Tube Uncuffed: No Tube Secured Depth (cm): 26 Tube Secured Location: other (gum) Tube Placement Confirmation: visualized tube passing through cords, equal breath sounds bilaterally, no breath sounds over epigastrium and confirmation by capnometry Patient Tolerated Procedure: well and no complications Shortness of Breath / Dyspnea MDM Narrative MDM Narrative:: Patient is morbidly obese, intubated with 8.5 tube, Kaleidoscope, etomidate 20 mg, rocuronium 100 mg, fentanyl and Versed drips for sedation, right subclavian central line placed. Workup ordered. Patient data External records reviewed:: [facility] previous records (Per chart review, patient was admitted here on 05/09/24 for respiratory failure. ) Clinical information provided by:: EMS Social determinants that could affect healthcare access:: none Patient has the following chronic illnesses:: CVA with left-sided deficits, hypertension, hyperlipidemia, HFpEF, COPD, type II DM and BPH with indwelling catheter How is presenting disease/condition affected by chronic disease/condition?: exacerbated by Evaluation data The following diagnostics were reviewed and interpreted by me:: lab results, radiology exam(s) and EKG tracing(s) Lab and/or radiology exams considered but not ordered:: none Interpretation Summary: WBC count is elevated at 18.3, Glucose is slightly elevated at 196, BNP is elevated at 206, pCO2 is elevated at 60 and HCO3 is elevated at 35, according to my interpretation. EKG done at 2002, NSR, rate of 80, left axis deviation, no ectopy, QRS: 153, QTc: 429, Q waves in lead II, lead III, aVF, V1, and V2, no acute ischemia, according to my interpretation. ----- [facility] Report Signed Patient: HUMPHREY VALDES [facility]. Record#: [id number] Birthdate: 1950 Age/Sex: 73 / M [facility] Attending Dr: Ordering Physician: Alejandro Betancourt MD Date of Service: 05/11/24 Procedure(s): XR chest 1V post procedure Accession Number(s): [id number] cc: Susanna Sandoval MD; Vicente Don MD; Alejandro Betancourt MD~ 11 AP chest single view Technique: AP portable chest single view Exam date and time: May 11, 2024 0832 hrs. Comparison April 18, 2024 Indications: Post orogastric tube placement Findings: Orogastric tube in stomach tip below the level film Cardiac contour is largely obscured by the patient's pneumonia The film is rotated LPO Extensive bilateral lung opacity Tracheal tube tip approximately 5.5 cm above gianluca Right subclavian central line tip SVC Impression: Extensive pneumonia ARDS pattern Dictated By: Vicente Don MD Signed By: <Electronically signed by Vicente Don MD in [place]> 05/11/242204 -------- [facility] Signed Patient: HUMPHREY VALDES Record#: [id number] Birthdate: 1950 Age/Sex: 73 / M Location: [facility] Attending Dr: Ordering Physician: Alejandro Betancourt MD Date of Service: 05/11/24 Procedure(s): CT head/brain wo con Accession Number(s): [id number] cc: Susanna Sandoval MD; Vicente Don MD; Alejandro Betancourt MD~ Examination: CT brain head without contrast. 2-D sagittal coronal reconstructions Date and time of exam:May 11, 2024 2138 hrs. Comparison May 09, 2024 Indications: Onset altered mental status today, history stroke CVA right middle cerebral artery distribution CTDI: vol (mGy):70.70 DLP: (mGycm): 1482 Technique: Multiple CT axial sections of the brain have been obtained, 5 mm slice thickness. Contrast has not been administered. 2-D sagittal, coronal reconstructions have been obtained Low dose protocols were performed. One or more of the following dose reduction techniques were used; automated exposure control, adjustment of the mA and/or KV according to patient size, use of iterative reconstruction technique. Findings: No significant ventricular enlargement. Again noted large old infarct right middle cerebral artery distribution Intra-axial or extra-axial hemorrhage density is not seen. No mass effect or midline shift Basal cisterns are not remarkable. Fourth ventricle is midline. Cranial vault intact. Impression: Negative for acute hemorrhage, mass effect or midline shift As clinically warranted, brain MRI follow-up would best assess for acute ischemic change Dictated By: Vicente Don MD Signed By: <Electronically signed by Vicente Don MD in OV> 05/11/24 2202 Medications / Prescriptions Medications or Prescriptions considered but not ordered:: none Medication administrations:: Medication Administration History Acetaminophen (Acetaminophen 325 Mg Tablet) 650 mg PO Q4HR PRN PRN Reason: PAIN SCALE 1-3 (mild Stop: 06/10/24 23:26 Acetaminophen (Acetaminophen Supp 650 Mg Supp) 650 mg MA Q4HR PRN PRN Reason: PAIN SCALE 1-3 (mild Stop: 06/10/24 23:26 Dexamethasone Sodium Phosphate (Dexamethasone Sod Phos Inj 10 Mg/Ml Vial) 10 mg IV Q12HR CIPRIANO Stop: 05/14/24 08:59 Furosemide (Furosemide Inj 10 Mg/Ml Vial 2 Ml) 20 mg IVP BIDD CIPRIANO Stop: 06/10/24 23:44 Last Admin: 05/12/24 00:00 Dose: 20 mg Documented By: JOEL Heparin Sodium (Porcine) (Heparin Sod Inj 5000 Unit/Ml Vial) 5,000 unit SC Q8HR CIPRIANO Stop: 05/25/24 23:29 Last Admin: 05/12/24 00:01 Dose: 5,000 unit Documented By: JOEL Co-signed By: TC Piperacillin/Tazobactam/Dextrose (Zosyn) 3.375 gm in 50 mls @ 100 mls/hr IV Q6HR [facility] Stop: 05/18/24 23:36 Fentanyl Citrate (Sublimaze Inj 2,500 Mcg/250 Ml Bag) 2,500 mcg in 250 mls @ 2.5 mls/hr IV .Q24H PRN; Protocol PRN Reason: PER PROTOCOL Stop: 05/16/24 20:21 Last Titration: 05/12/24 04:00 Dose: 150 mcg/hr, 15 mls/hr Documented By: Titration: 05/12/24 03:00 Dose: 150 mcg/hr, 15 mls/hr Documented By: Titration: 05/12/24 02:00 Dose: 175 mcg/hr, 17.5 mls/hr Documented By: Titration: 05/12/24 01:00 Dose: 125 mcg/hr, 12.5 mls/hr Documented By: Admin: 05/11/24 23:52 Dose: 100 mcg/hr, 10 mls/hr Documented By: JOEL Co-signed By: HARMONY Dexmedetomidine/Sodium Chloride (Precedex Ivpb) 400 mcg in 100 mls @ 6.35 mls/hr IV .[id number] PRN; Protocol PRN Reason: Per PROTOCOL Stop: 06/11/24 01:24 Last Titration: 05/12/24 02:50 Dose: 0 mcg/kg/hr, 0 mls/hr Documented By: Titration: 05/12/24 02:00 Dose: 0.4 mcg/kg/hr, 12.701 mls/hr Documented By: Admin: 05/12/24 01:36 Dose: 0.2 mcg/kg/hr, 6.35 mls/hr Documented By: GRACE Co-signed By: VALENTIN Pantoprazole Sodium (Pantoprazole Inj 40 Mg Vial) 40 mg IVP BID CIPRIANO Stop: 06/10/24 23:29 Last Admin: 05/12/24 00:01 Dose: 40 mg Documented By: JOEL Pharmacy Consult (Vancomycin Pharmacy To Dose 1 Each Each) 1 each IV QDAY CIPRIANO Stop: 06/11/24 08:59 Discontinued Medications Etomidate (Etomidate Inj 2 Mg/Ml Vial 10 Ml) 20 mg IVP X1 ONE Stop: 05/11/24 19:57 Last Admin: 05/11/24 20:07 Dose: 20 mg Documented By: JOEL Etomidate (Etomidate Inj 2 Mg/Ml Vial 10 Ml) Confirm Administered Dose 20 mg .ROUTE .STK-MED ONE Stop: 05/11/24 19:53 Last Admin: 05/11/24 20:12 Dose: Not Given Documented By: JOEL Non-Admin Reason: Override Medication Midazolam HCl (Versed Pf Inj In Ns Premix) Confirm Administered Dose 100 mg in 100 mls @ ud IV .STK-MED ONE Stop: 05/11/24 20:15 Last Admin: 05/11/24 20:24 Dose: Not Given Documented By: JOEL Non-Admin Reason: Override Medication Fentanyl Citrate (Sublimaze Inj 2,500 Mcg/250 Ml Bag) Confirm Administered Dose 2,500 mcg in 250 mls @ ud IV .STK-MED ONE Stop: 05/11/24 20:15 Last Admin: 05/11/24 20:25 Dose: Not Given Documented By: JOEL Non-Admin Reason: Override Medication Fentanyl Citrate (Sublimaze Inj 2,500 Mcg/250 Ml Bag) 2,500 mcg in 250 mls @ 2.5 mls/hr IV .Q24H PRN; Protocol PRN Reason: PER PROTOCOL Stop: 05/16/24 20:21 Last Titration: 05/11/24 22:26 Dose: 75 mcg/hr, 7.5 mls/hr Documented By: Admin: 05/11/24 20:25 Dose: 25 mcg/hr, 2.5 mls/hr Documented By: JOEL Co-signed By: VALE Midazolam HCl (Versed Pf Inj In Ns Premix) 100 mg in 100 mls @ 1 mls/hr IV .Q24H PRN; Protocol PRN Reason: PER PROTOCOL Stop: 05/16/24 20:21 Last Titration: 05/11/24 22:27 Dose: 2 mg/hr, 2 mls/hr Documented By: Admin: 05/11/24 20:23 Dose: 1 mg/hr, 1 mls/hr Documented By: JOEL Co-signed By: VALE Piperacillin Sod/Tazobactam (Sod 3.375 gm/ Sodium Chloride) 50 mls @ 100 mls/hr IV X1 ONE Stop: 05/11/24 23:26 Last Infusion: 05/11/24 23:51 Dose: Infused Documented By: Admin: 05/11/24 23:13 Dose: 100 mls/hr Documented By: JOEL Vancomycin HCl 1,000 mg/ (Sodium Chloride) 250 mls @ 150 mls/hr IV X1 ONE Stop: 05/12/24 00:37 Last Admin: 05/11/24 23:56 Dose: 150 mls/hr Documented By: JOEL Propofol (Diprivan Ivpb) 1,000 mg in 100 mls @ 3.81 mls/hr IV .Q24H PRN; Protocol PRN Reason: PER PROTOCOL Stop: 06/10/24 23:38 Midazolam HCl (Versed Pf Inj In Ns Premix) 100 mg in 100 mls @ 1 mls/hr IV .Q24H PRN; Protocol PRN Reason: PER PROTOCOL Stop: 05/16/24 23:46 Last Titration: 05/12/24 01:00 Dose: 0 mg/hr, 0 mls/hr Documented By: Admin: 05/11/24 23:54 Dose: 1 mg/hr, 1 mls/hr Documented By: JOEL Co-signed By: HARMONY Rocuronium [place] (Rocuronium Inj 10 Mg/Ml Vial 10 Ml) 100 mg IVP X1 ONE Stop: 05/11/24 19:57 Last Admin: 05/11/24 20:08 Dose: 100 mg Documented By: JOEL Co-signed By: VALE Rocuronium [place] (Rocuronium Inj 10 Mg/Ml Vial 10 Ml) Confirm Administered Dose 100 mg .ROUTE .STK-MED ONE Stop: 05/11/24 19:54 Last Admin: 05/11/24 20:13 Dose: Not Given Documented By: JOEL Non-Admin Reason: Override Medication see above Consultations Consultation(s) initiated? (list below): Yes Consultation #1 (Physician, Specialty, Details): Discussed case with [Dr. Ortiz] from [ICU resident] regarding [admission]. Discussed patients ED course, exam findings, labs, and radiology results. Accepts the patient for admission. Time: 23:23 Diagnosis Shortness of Breath Differential Diagnosis: community acquired pneumonia, pulmonary embolism and other (CHF exacerbation, respiratory failure) Most likely diagnosis given after review of the tests above:: see below Admission Indicated Admission indicated?: indicated Admission Request Was there a request for admission?: Yes Admission Attestation Admission request attestation: Discussed case with [] from Hospitalist service regarding admission. Discussed patients ED course, exam findings, labs, and radiology results. The Hospitalist [agrees,declines] to accept the patient for admission. Disposition Plan Disposition Plan: Admit Critical Care Time Critical Care Time Critical Care Time: Yes Total Critical Care Time (min.): 60 Attestation: The high probability of sudden, clinically significant deterioration in the patient?s condition required the highest level of my preparedness to intervene urgently. The services I provided to this patient were to treat and/or prevent clinically significant deterioration. Services included the following: chart data review, reviewing nursing notes and/or old charts, documentation time, recruitment consultant collaboration regarding findings and treatment options, medication orders and management, direct patient care, vital sign assessments and ordering, interpreting and reviewing diagnostic studies and lab tests. Aggregate critical care time includes only time during which I was engaged in work directly related to the patient?s care, as described above, whether at bedside or elsewhere in the Emergency Department. It did not include time spent performing other reported procedures or the services of residents, students, nurses or physician assistants. Discharge Plan Plan Patient Disposition: Admit Acute Care w/in Hospital Problem List Clinical Impression: Respiratory failure, Pneumonia, Acute respiratory distress syndrome (ARDS), Septic shock
[2024-05-11 20:40] VITALS: PULSE 81; RESP 20; O2SAT 100
[2024-05-11 20:41] VITALS: BP 167/78; PULSE 76; RESP 20; O2SAT 100
[2024-05-11 20:47] VITALS: BP 167/78; PULSE 75; PULSE 76; RESP 20; O2SAT 100
--- NOTE | 2024-05-11 20:53 | XR_ITS ---
Examination: CT brain head without contrast. 2-D sagittal coronal reconstructions Date and time of exam:May 11, 2024 2138 hrs. Comparison May 09, 2024 Indications: Onset altered mental status today, history stroke CVA right middle cerebral artery distribution CTDI: vol (mGy):70.70 DLP: (mGycm): 1482 Technique: Multiple CT axial sections of the brain have been obtained, 5 mm slice thickness. Contrast has not been administered. 2-D sagittal, coronal reconstructions have been obtained Low dose protocols were performed. One or more of the following dose reduction techniques were used; automated exposure control, adjustment of the mA and/or KV according to patient size, use of iterative reconstruction technique. Findings: No significant ventricular enlargement. Again noted large old infarct right middle cerebral artery distribution Intra-axial or extra-axial hemorrhage density is not seen. No mass effect or midline shift Basal cisterns are not remarkable. Fourth ventricle is midline. Cranial vault intact. Impression: Negative for acute hemorrhage, mass effect or midline shift As clinically warranted, brain MRI follow-up would best assess for acute ischemic change
[2024-05-11 21:19] LABS: Basophils % (Auto) 0 % (0-2.5); Eosinophils % (Auto) 0 % (0-10); Hematocrit 42.3 % (41.0-53.0); Hemoglobin 13.2 g/dL (13.5-16.0); Immature Granulocytes % (Auto) 1 % (0-0); Immature Granulocytes Auto 0.09 Thou/mm3 (0.00-0.00); Lymphocytes # (Auto) 0.5 Thou/mm3 (1.0-4.8); Lymphocytes % (Auto) 3 % (10-50); Mean Corpuscular HGB Conc 31.2 g/dl (31.0-37.0); Mean Corpuscular Hemoglobin 26.5 pg (25.0-35.0); Mean Corpuscular Volume 85 fL (80-100); Monocytes # (Auto) 1.8 Thou/mm3 (0.0-0.8); Monocytes % (Auto) 10 % (0-12); Neutrophils # (Auto) 15.9 Thou/mm3 (1.8-7.7); Neutrophils % (Auto) 87 % (37-80); Nucleated Red Blood Cell % 0 /100 WBC (0); Platelet Count 341 Thou/mm3 (140-440); Red Blood Count 4.99 Miln/mm3 (4.50-5.90); White Blood Count 18.3 Thou/mm3 (3.8-10.6)
--- NOTE | 2024-05-11 21:37 | PC.NURSE ---
PT WAS TAKEN TO CAT SCAN BY HUMPHREY CELAYA WITH RT, AND CRISTI SH[employer] FIRER/FIREMAN.
[2024-05-11 21:52] LABS: B-Type Natriuretic Peptide 206 pg/mL (0-100); INR 1.2 (0.9-1.3); Partial Thromboplastin Time 25.9 Seconds (22.0-36.0); Prothrombin Time 12.9 Seconds (9.0-12.2)
[2024-05-11 21:54] LABS: Alanine Aminotransferase 35 U/L (10-49); Albumin, Serum 3.8 gm/dL (3.4-4.8); Albumin/Globulin Ratio 1.3 (1.2-2.2); Alkaline Phosphatase 71 U/L (46-116); Anion Gap 3 (7-16); Aspartate Amino Transferase 35 U/L (0-34); BUN/Creatinine Ratio 26 Ratio (12-20); Bilirubin,Total 0.6 mg/dL (0.3-1.2); Blood Urea Nitrogen 26 mg/dL (9-23); Calcium 9.8 mg/dL (8.3-10.6); Chloride 104 mMol/L (98-107); Estimated Creatinine Clearance 89.3 mL/min (>60); Glucose 196 mg/dL (74-106); Lipase 50 U/L (12-53); Osmolality,Calculated 285 (275-295); Potassium 4.1 mMol/L (3.4-5.1); Sodium 138 mMol/L (136-145); Total Protein 6.8 gm/dL (5.7-8.2); Troponin I < 0.020 ng/mL (0.0-0.045); eGFR > 60 See Note
[2024-05-11 22:13] LABS: Base Excess 7 (-3-3); HCO3 35 mEq/L (20-26); O2 Saturation 100 % (91-98); PCO2 60 mmHg (32.0-48.0); PO2 240 mmHg (83-108); pH, Arterial 7.37 (7.35-7.45)
[2024-05-11 22:14] LABS: Allen Test Not Performed; Inspired Oxygen, FIO2 100 %; Puncture Site Left Radial
--- NOTE | 2024-05-11 22:26 | XR_ITS ---
Examination: AP chest single view Technique: AP portable semiupright chest single view Exam date and time: May 11, 2024 1036 hrs. Indications: Hypoxic respiratory failure position tracheal tube Findings: Tracheal tube tip 3.3 cm above gianluca Extensive bilateral lung opacity with enlarged cardiac contour Orogastric tube in the stomach Right subclavian central line tip SVC No pneumothorax The film is rotated LPO Impression: Tracheal tube tip now 3.3 cm above gianluca
--- NOTE | 2024-05-11 22:32 | PC.RT ---
ET tube advanced to 27 cm per x-ray. repeat x-ray ordered to verify placement.
[2024-05-11 23:08] VITALS: BP 107/55; PULSE 51; RESP 20; TEMP 36.6; O2SAT 100
[2024-05-11] MEDS: PIPER/TAZO INJ 3.375 GM in SODIUM CHLORIDE 0.9% (P) 50 ML IV (23:13)
--- NOTE | 2024-05-11 23:35 | XR_ITS ---
Examination: CTA chest with intravenous contrast 2-D reconstructions 3-D reconstructions, vascular Date and time of exam: May 12, 2024 at 0033 hrs. Indications: Adult hypoxic respiratory failure, respiratory distress, post intubation, clinical diagnosis pulmonary emboli CTDI: vol (mGy) 89.79 DLP: (mGycm) 851 Technique: Multiple axial sections of the thorax have been obtained. 3 mm slice thickness, from below the hemidiaphragms to above the apices of the lungs. Mediastinal and lung density settings have been obtained. 2-D sagittal and coronal reconstructions. 3-D angiographic renderings, 3-D volume renderings, 3D post processing, vascular maximum intensity projections obtained. Contrast administered is 60 cc [id number]. Low dose protocols were performed. One or more of the following dose reduction techniques were used; automated exposure control, adjustment of the mA and/or KV according to patient size, use of iterative reconstruction technique. Findings: No thoracic aortic aneurysmal dilatation or dissection Main pulmonary artery segment 34 mm, no pulmonary artery emboli Collapse of the left bronchial tree pattern with severe atelectasis left lung Moderate right mild left pleural fluid Extensive edema and/or pneumonia in the right lung Prominent vascular congestion with enlargement cardiac contour Liver is irregular in contour Hyperdense gallbladder Atrophic end-stage left kidney with again noted 14 mm left ureteropelvic junction calculus Left adrenal adenoma 10 mm 12 mm right adrenal adenoma Impression: Negative for pulmonary artery emboli Extensive atelectasis left lung Pneumonia and/or edema in the right lung
[2024-05-11] MEDS: fentaNYL 2,500 MCG/250 ML BAG 2,500 MCG/250 ML BAG 10 MCG IV (23:52)
[2024-05-11] MEDS: Vancomycin Inj 1,000 MG in SODIUM CHLORIDE 0.9% 250 ML 250 ML 150 MG IV (23:56)
[2024-05-12] VITALS (61 sets, daily range): BP systolic 109–203; BP diastolic 46–92; PULSE 45–99; RESP 5–27; TEMP 36.2–36.6; O2SAT 85–100
[2024-05-12] MEDS: HEPARIN SOD INJ 5000 UNIT/ML VIAL SC ×2 (00:01→06:12)
[2024-05-12] MEDS: PANTOPRAZOLE INJ 40 MG VIAL IVP ×3 (00:01→20:23)
[2024-05-12 00:18] LABS: Ammonia < 10 uMol/L (11-32)
--- NOTE | 2024-05-12 00:36 | PD.RESHP ---
Documentation for date of: 05/12/24 [facility] History of Present Illness Chief complaint: AMS/ AHRF History of present illness: This is a 73-year-old male with past medical history of CVA with left-sided deficits, hypertension, hyperlipidemia, HFpEF 50% on 11/05, history of COPD, history of type 2 diabetes on metformin, and BPH with indwelling catheter, recent admission on 05/09/2024 for acute hypoxic respiratory failure and underwent intubation brought to the emergency department from a [facility] due to shortness of breath and altered mental status. Today the patient presented due to altered mental status unable to protect his airway. Patient was discharged on 05/11 and left the hospital around 5 PM patient spent approximately an hour and a half at the SNF he was only requiring 3 L nasal cannula however one of the nurses found the patient unresponsive bluish coloration of his face increased the oxygen to 5 patient became unresponsive EMS was called when EMS arrived if at 15 L patient was still saturating in the 70s unresponsive. Patient still had a pulse. Upon arrival to the emergency department patient remained altered unable to follow verbal commands and was still very hypoxic. Decision was made to intubate the patient. Patient will be transferred to the ICU for further care. ED Course: Initial vitals: BP 106/72, HR 80, spo2 70s room air, Initial labs showed WBC 18.3, hemoglobin 13.2 glucose 196, AST 35, ammonia less than 10, BNP 203. ABG post intubation showed a pH of 7.3 7/60/240/35. Imaging shows chest x-ray diffuse groundglass opacity consistent with ARDS. Head CT was negative for any Review of Systems Review of Systems ROS Unobtainable: due to endotracheal tube Exam Vital Signs Temp Pulse Resp BP Pulse Ox O2 Del Method FiO2 97.9 F 51 L 20 118/53 L 100 Mechanical Ventilation 100 05/11/24 23:08 05/12/24 00:00 05/11/24 23:08 05/12/24 00:00 05/11/24 23:08 05/11/24 23:08 05/11/24 20:41 Narrative Exam Constitutional: Intubated & sedated HEENT: NC/AT, sluggish pupillary reaction, ET tube in place, notable to chewing tobacco remnants noted CVS: RRR, S1-S2 present, no murmurs RESP: Rhonchi heard throughout all lung fox GI: non distended, NBS MSK: LLE peripheral edema, peripheral pulses present Skin: warm and dry Neuro: gag reflex noted Results: Labs 05/11/24 21:10 05/11/24 21:10 Labs: Short CBC 05/11/24 Range/Units 21:10 WBC 18.3 H D (3.8-10.6) Thou/mm3 Hgb 13.2 L (13.5-16.0) g/dL Hct 42.3 (41.0-53.0) % Plt Count 341 D (140-440) Thou/mm3 BMP 05/11/24 21:10 Sodium 138 Potassium 4.1 Chloride 104 Carbon Dioxide 31.0 BUN 26 H Creatinine 1.0 Glucose 196 H Calcium 9.8 Cardiac Enzymes 05/11/24 Range/Units 21:10 Troponin I < 0.020 (0.0-0.045) ng/mL Liver Function 05/11/24 Range/Units 21:10 Total Bilirubin 0.6 (0.3-1.2) mg/dL AST 35 H (0-34) U/L ALT 35 (10-49) U/L Alkaline Phosphatase 71 (46-116) U/L Albumin 3.8 (3.4-4.8) gm/dL ABG Interpretation ABG results: 05/11/24 05/11/24 21:10 22:09 ABG pH Cancelled 7.37 ABG pCO2 Cancelled 60 H ABG pO2 Cancelled 240 H D ABG HCO3 Cancelled 35 H ABG O2 Saturation Cancelled 100 H ABG Base Excess Cancelled 7 H Quality Measures Quality Measures none Advance care planning discussed with:: other Medications Home Medications and Allergies Home Medications ?Medication ?Instructions ?Recorded ?Confirmed ?Type clopidogrel 75 mg tablet (Plavix) 75 mg PO QDAY #0 tabs 12/23/15 05/09/24 History gabapentin 300 mg capsule 300 mg PO TID #0 caps 01/10/17 05/09/24 History magnesium hydroxide 400 mg/5 mL 30 ml PO Q72H PRN Constipation #0 01/10/17 05/09/24 History oral suspension (Milk of Magnesia) mL ferrous sulfate 325 mg (65 mg 325 mg PO QDAY 10/07/23 05/09/24 History iron) tablet hydrocodone 5 mg-acetaminophen 325 1 tab PO Q6H PRN Pain (Scale Score 10/19/23 05/09/24 History mg tablet 7-10) bisacodyl 10 mg rectal suppository 10 mg MT Q72H 11/27/23 05/09/24 History (Dulcolax (bisacodyl)) metformin 500 mg tablet 500 mg PO BIDWMEAL 11/27/23 05/09/24 History hydralazine 25 mg tablet 50 mg PO TID 05/09/24 05/09/24 History Allergies Allergy/AdvReac Type Severity Reaction Status Date / Time No Known Allergies Allergy Verified 05/09/24 05:50 Visit Medications Acetaminophen (Acetaminophen 325 Mg Tablet) 650 mg PO Q4HR PRN PRN Reason: PAIN SCALE 1-3 (mild Stop: 06/10/24 23:26 Acetaminophen (Acetaminophen Supp 650 Mg Supp) 650 mg MT Q4HR PRN PRN Reason: PAIN SCALE 1-3 (mild Stop: 06/10/24 23:26 Dexamethasone Sodium Phosphate (Dexamethasone Sod Phos Inj 10 Mg/Ml Vial) 10 mg IV Q12HR CIPRIANO Stop: 05/14/24 08:59 Furosemide (Furosemide Inj 10 Mg/Ml Vial 2 Ml) 20 mg IVP BIDD CIPRIANO Stop: 06/10/24 23:44 Last Admin: 05/12/24 00:00 Dose: 20 mg Heparin Sodium (Porcine) (Heparin Sod Inj 5000 Unit/Ml Vial) 5,000 unit SC Q8HR CIPRIANO Stop: 05/25/24 23:29 Last Admin: 05/12/24 00:01 Dose: 5,000 unit Vancomycin HCl 1,000 mg/ (Sodium Chloride) 250 mls @ 150 mls/hr IV X1 ONE Stop: 05/12/24 00:37 Last Admin: 05/11/24 23:56 Dose: 150 mls/hr Piperacillin/Tazobactam/Dextrose (Zosyn) 3.375 gm in 50 mls @ 100 mls/hr IV Q6HR CIPRIANO Stop: 05/18/24 23:36 Fentanyl Citrate (Sublimaze Inj 2,500 Mcg/250 Ml Bag) 2,500 mcg in 250 mls @ 2.5 mls/hr IV .Q24H PRN; Protocol PRN Reason: PER PROTOCOL Stop: 05/16/24 20:21 Last Admin: 05/11/24 23:52 Dose: 100 mcg/hr, 10 mls/hr Midazolam HCl (Versed Pf Inj In Ns Premix) 100 mg in 100 mls @ 1 mls/hr IV .Q24H PRN; Protocol PRN Reason: PER PROTOCOL Stop: 05/16/24 23:46 Last Admin: 05/11/24 23:54 Dose: 1 mg/hr, 1 mls/hr Pantoprazole Sodium (Pantoprazole Inj 40 Mg Vial) 40 mg IVP BID CIPRIANO Stop: 06/10/24 23:29 Last Admin: 05/12/24 00:01 Dose: 40 mg Pharmacy Consult (Vancomycin Pharmacy To Dose 1 Each Each) 1 each IV QDAY CIPRIANO Stop: 06/11/24 08:59 Discontinued Medications Etomidate (Etomidate Inj 2 Mg/Ml Vial 10 Ml) 20 mg IVP X1 ONE Stop: 05/11/24 19:57 Last Admin: 05/11/24 20:07 Dose: 20 mg Fentanyl Citrate (Sublimaze Inj 2,500 Mcg/250 Ml Bag) 2,500 mcg in 250 mls @ 2.5 mls/hr IV .Q24H PRN; Protocol PRN Reason: PER PROTOCOL Stop: 05/16/24 20:21 Last Titration: 05/11/24 22:26 Dose: 75 mcg/hr, 7.5 mls/hr Midazolam HCl (Versed Pf Inj In Ns Premix) 100 mg in 100 mls @ 1 mls/hr IV .Q24H PRN; Protocol PRN Reason: PER PROTOCOL Stop: 05/16/24 20:21 Last Titration: 05/11/24 22:27 Dose: 2 mg/hr, 2 mls/hr Piperacillin Sod/Tazobactam (Sod 3.375 gm/ Sodium Chloride) 50 mls @ 100 mls/hr IV X1 ONE Stop: 05/11/24 23:26 Last Infusion: 05/11/24 23:51 Dose: Infused Propofol (Diprivan Ivpb) 1,000 mg in 100 mls @ 3.81 mls/hr IV .Q24H PRN; Protocol PRN Reason: PER PROTOCOL Stop: 06/10/24 23:38 Rocuronium Penelope (Rocuronium Inj 10 Mg/Ml Vial 10 Ml) 100 mg IVP X1 ONE Stop: 05/11/24 19:57 Last Admin: 05/11/24 20:08 Dose: 100 mg Assessment & Plan Plan Summary: 73-year-old male admitted to the ICU due to acute hypoxic respiratory failure in the setting of aspiration requiring mechanical ventilation. 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 Post intubation abg did not show hypercapnia. Pt was hypoxic on arrival. CT head was negative on admission Unable to assess deficits due to sedation Plan: -sedation: propofol and fentanyl -RASS goal: -2 -cont plavix Cardio: #Hx of HFrEF (EF 45%) #Hx of Paroxysmal Afib on AC #Hx of HTN Dx: BNP 204, L sided peripheral edema Plan: -hold anithypertensive due to low BP in the setting of sedation -cont apixaban, amiodarone -lasix 20mg BID Pulm: #Acute Hypoxic Respiratory failure requiring intubation #ARDS, mild #Hx of COPD Etiology: aspiration while chewing tobacco. Required intubation due to airway protection due altered mentation, increased work of breathing and poor oxygenation DDx: viral PNA (Flu B), COPD exacerbation, heart failure exacerbation Dx: Cxr showed diffused ground glass opacities Plan: -cont antibiotics (see ID section) -decadron 10mg BID IV -duonebs -sputum cx -Goal Spo2 88-92% GI: No active problems Renal: stable Endo: #Type 2 Diabetes Dx: A1c 8.4 on 10/06 Plan: -hold home metformin -start ISS protocol Heme: #Leukocytosis Etiology: likely in the setting of sepsis, reactive due steroid use Dx: WBC 18.3 Plan: -treat underlying condition ID: #Sepsis 2/2 to PNA #Community Acquired PNA #Hx of ESBL Kleb PNA UTI Etiology: had an aspiration event while chewing tobacco Dx: WBC 15.8, UA pos, procal pending Plan: -sputum cx. blood cx, urine cx ordered, legionella, flu, covid -MRSA nasal screen -antibitics: Zosyn and Vanc (started on 05/12- ) Skin/MSK: No active problems : #BPH with indwelling catheter Patient came with garcia catheter from [facility] unknown time Plan: -cont tamsulosin ICU Health maintenance: Mechanical ventilation: VC Sedation: propofol/fent FEN: none DVT ppx: heparin GI ppx: protonix Garcai: indewlling from SNF IV lines: 3 peripheral Central line: R subclavian Arterial line: none Code status: FULL code Dispo: admit to ICU - Patient's care was discussed with my attending physician, Dr. Arnel Barth MD Internal Medicine PGY-3 Attending Provider Attestation/Addendum I reviewed labs, imaging, EKG, home medications and prior available records. Face to face evaluation was performed by me. I have personally examined the patient and discussed assessment and plan with the IM team. I reviewed the resident note and agree with the plan with exceptions as below. 73-year-old male with history of COPD, HFrEF with EF of 45%, CVA with left-sided residuals, who presented from SNF for a chief complaint of shortness of breath and respiratory distress. Patient was recently admitted where he was found to have acute hypoxic respiratory failure in the setting of extensive right-sided pneumonia, influenza B, and sepsis picture. He was intubated to protect airways. Patient was later extubated and downgraded to the floor and was discharged on 05/11. Soon after discharge, patient became hypoxic again with severe respiratory distress for which he was readmitted and reintubated. CODE BLUE was called however patient did not receive any chest compressions. Acute hypoxic respiratory failure: Likely multifactorial in the setting of extensive bilateral pneumonia, aspiration pneumonia, and CHF. Will start the patient on vancomycin/Zosyn. Repeat CT chest to rule out worsening pleural effusions. He will need swallow evaluation when extubated. Will start IV diuresis and monitor I's and O's. Sepsis secondary to extensive right-sided pneumonia versus UTI: Antibiotics as above. Follow-up urine and blood cultures. COPD: Possibly contributing to his respiratory symptoms. Will start systemic corticosteroids. DuoNebs as needed. Possible CHF exacerbation: In the setting of history of heart failure with EF of 45%. Started Lasix. Avoid IV fluids at this time. Monitor I's and O's. History of CVA: With left-sided residuals. Resume home medications. DVT prophylaxis. Critical care time is 60 minutes.
[2024-05-12 00:53] LABS: Collection Type, Urine Clean Catch
[2024-05-12 01:02] LABS: Bacteria,Urine 1+; Bilirubin,Urine Negative (Negative); Blood,Urine 3+ (Negative); Clarity,Urine Turbid (Clear/Hazy); Color,Urine Yellow (Lt Yel-Yel); Glucose, Urine 1+ (Negative); Ketones,Urine Negative (Negative); Leukocyte Esterase,Urine Positive (Negative); Nitrite,Urine Negative (Negative); Protein,Urine 2+ (Neg - Trace); RBC,Urine 1374 /hpf (0-3); Specific Gravity,Urine 1.023 (1.001-1.035); Squamous Epithelial Cell,Urine 1 /hpf (0-5); Urobilinogen,Urine Negative mg/dL (0.0-1.0); WBC,Urine 175 /hpf (0-5)
[2024-05-12 01:33] LABS: Base Excess 5 (-3-3); HCO3 32 mEq/L (20-26); Inspired Oxygen, FIO2 45 %; O2 Saturation 95 % (91-98); PCO2 62 mmHg (32.0-48.0); PO2 71 mmHg (83-108); pH, Arterial 7.33 (7.35-7.45)
[2024-05-12 01:34] LABS: Procalcitonin 0.36 ng/ml (0.0-0.49)
[2024-05-12 01:34] LABS: Allen Test Not Performed; Puncture Site Left Radial
[2024-05-12] MEDS: DEXMEDETOMIDINE 400 MCG IVPB 400 MCG/100 ML BAG 6.35 MCG IV (01:36)
--- NOTE | 2024-05-12 02:37 | PRELIM_ITS ---
CT angiogram of the chest with intravenous contrast (axial sections with sagittal and coronal reforma ts, 3D/MIP reconstructed images) May 12, 2024 0033 hours Clinical History: AHFR Compared with th e prior study dated May 09, 2024 Findings:An endotracheal tube is in satisfactory position with its tip 2.5 cm above the gianluca. A right central venous catheter is seen with its tip in the right at rium. A nasogastric catheter is in satisfactory position with its tip in the stomach.Again seen are f luid/secretions in the left main bronchus and left upper/lower lobe bronchii with complete left lower lobe collapse and marked left upper lobe collapse with mild aeration of the left upper lobe, worsene d since the prior examination. Again seen are diffuse hazy and ground glass opacities in the right flip ng, unchanged since the prior examination. Again seen are moderate bilateral pleural effusions with u nderlying atelectasis, unchanged since the prior examination. No evidence of pneumothorax.There is no filling defect within the pulmonary artery divisions to suggest pulmonary thromboembolism.There is t race pericardial effusion. There is moderate cardiomegaly. The aorta and its branches demonstrate ath eromatous calcification without evidence of aneurysm. The mediastinum demonstrates no evidence of ma ss or lymphadenopathy. The left kidney is markedly atrophic. A 15 x 9 mm left renal pelvis calculus with atrophic left kidney, not entirely included. There is a 1 cm left adrenal lesion, likely repre senting an adenoma. There is a 1.5 cm fat-density lesion in the right adrenal gland, likely myelolipo ma. The other visualized upper abdominal viscera are unremarkable. Mild degenerative changes are note d in the visualized spine. Impression:Fluid/secretions in the left main bronchus and left upper/lower lobe bronchii with complete left lower lobe collapse and marked left upper lobe collapse, with mild aeration of the left upper lobe, worsened since the prior examination. Moderate bilateral pleural eff usions with underlying atelectasis, unchanged since the prior examination.. No evidence of pulmonary thromboembolism.Large left renal pelvis calculus with atrophic left kidney, not entirely included.. S table diffuse hazy and ground glass opacities in the right lung, likely edema versus pneumonia. Recom mend clinical correlation. Other stable findings as described above.Discussion Details: Results verb ally communicated to : Dr. Barth at 02:28 AM 05/12/2024 Report Electronically Signed By: Antelmo clark 05/12/2024 2:36:46 AM [EST]
[2024-05-12 05:31] LABS: Base Excess 5 (-3-3); HCO3 33 mEq/L (20-26); Inspired Oxygen, FIO2 55 %; O2 Saturation 97 % (91-98); PCO2 63 mmHg (32.0-48.0); PO2 85 mmHg (83-108); pH, Arterial 7.33 (7.35-7.45)
[2024-05-12 05:44] LABS: Allen Test Performed/OK; Puncture Site Left Radial
[2024-05-12] MEDS: FUROSEMIDE INJ 10 MG/ML VIAL 2 ML 20 MG IVP ×2 (06:11)
[2024-05-12] MEDS: DEXAMETHASONE SOD PHOS INJ 10 MG/ML VIAL IV (08:36)
[2024-05-12] MEDS: PIPER/TAZO 3.375 GM 3.375 GM/50 ML BAG IV (08:36)
--- NOTE | 2024-05-12 09:00 | XR_ITS ---
Examination: AP chest single view Technique one AP portable semiupright chest single view Exam date and time: May 12, 2024 0719 hrs. Comparison May 11, 2024, CT chest May 04, 2024 0033 hrs. Indications: Hypoxic respiratory failure, pneumonia or pulmonary edema anterior chest imaging Findings: Marked improvement with better aeration left lung, the current study There remains vascular congestion and extensive bilateral lung opacity, pneumonia and/or edema Endotracheal tube tip 4.7 cm above gianluca Orogastric tube in the stomach Impression: Marked improvement with better aeration left lung There remains pulmonary edema and/or pneumonia
[2024-05-12] MEDS: ALBUTEROL RT 2.5 MG/0.5 ML NEBU 5 MG INH ×4 (09:49→22:50)
[2024-05-12] MEDS: ACETYLCYSTEINE RT SOL 10% 4 ML NEBU 3 ML INH ×4 (09:51→22:53)
--- NOTE | 2024-05-12 09:58 | PC.NURSE ---
Late entry: @ 0745, upon assessment pt was found to have a hematoma at the Right Subclavian triple lumen catheter insertion site. Hematoma was outlined to assess for any additional growth. Picture in physical chart. Hematoma measuring 10cm X 8cm. MD Aleman aware. Ok to keep using line for drug infusions.
[2024-05-12] MEDS: VANCOMYCIN/NS 1 GM IVPB 200 ML IV ×2 (10:31→21:06)
[2024-05-12] MEDS: ENOXAPARIN SOD INJ 60 MG/0.6 ML SYRINGE SC (10:31)
[2024-05-12] MEDS: AMPICILLIN/SULBAC INJ 3 GM in SODIUM CHLORIDE 0.9% (P) 100 ML IV ×2 (13:35→18:39)
--- NOTE | 2024-05-12 19:25 | ESPR_ITS ---
Documentation for date of: 05/12/24 Subjective Subjective Interval history: 05/12/2024: Patient was seen and examined by the bedside. On mechanical ventilator, patient is awake and able to follow verbal commands. Vitals are stable. On auscultation, bilateral decreased breath sounds noted in view of body habitus. Labs showed elevated WBC count, BUN 26 and rest of the labs are within normal limits. Urine analysis showed 175 WBC, 1374 RBC, 1+ bacteria. ABG showed pH 7.33, pCO2 63, PaO2 85, bicarb 33. Plan to do bronchoscopy on the patient but as the patient is drowsy despite being off the sedation and as not able to reach legal surrogate, postpone the procedure to tomorrow. Will continue chest physiotherapy, albuterol and Mucomyst nebulizations. Exam Vital Signs Temp Pulse Resp BP Pulse Ox O2 Del Method FiO2 97.2 F 52 L 20 150/67 H 99 Mechanical Ventilation 40 05/12/24 16:00 05/12/24 18:00 05/12/24 18:00 05/12/24 18:00 05/12/24 18:00 05/11/24 23:08 05/12/24 16:00 Narrative Exam General: Awake and in no acute distress. On mechanical ventilator. Morbidly obese. HEENT: Normocephalic, atraumatic, mucous membranes moist. Heart: Regular rate and rhythm, no murmurs. Lungs: Clear to auscultation with no wheezing or crackles. Bilateral decreased breath sounds noted. Abdomen: Soft, nondistended, nontender, positive bowel sounds. ?No guarding or rebound tenderness. Neurologic: Able to follow verbal commands and decreased movements noted on the left side due to previous CVA. Extremities: No edema. Skin: No rash or ecchymoses. Objective Labs 05/13/24 09:10 05/13/24 09:10 Labs: Laboratory Results - last 24 hr 05/11/24 05/11/24 05/11/24 21:10 22:09 23:50 WBC 18.3 H D RBC 4.99 Hgb 13.2 L Hct 42.3 MCV 85 MCH 26.5 MCHC 31.2 RDW Std Deviation 56.0 H Plt Count 341 D Neut % (Auto) 87 H Lymph % (Auto) 3 L [place] % (Auto) 10 Eos % (Auto) 0 Baso % (Auto) 0 Neut # (Auto) 15.9 H Lymph # (Auto) 0.5 L [place] # (Auto) 1.8 H Eos # (Auto) 0.0 Baso # (Auto) 0.0 Immature Gran # (Auto) 0.09 H Absolute Nucleated RBC 0.00 Immature Gran % 1 H Nucleated RBC % 0 PT 12.9 H INR 1.2 APTT 25.9 Puncture Site Cancelled Left Radial ABG pH Cancelled 7.37 ABG pCO2 Cancelled 60 H ABG pO2 Cancelled 240 H D ABG HCO3 Cancelled 35 H ABG O2 Saturation Cancelled 100 H ABG Base Excess Cancelled 7 H Oxygen Liter Flow Cancelled FiO2 Cancelled 100 Sodium 138 Potassium 4.1 Chloride 104 Carbon Dioxide 31.0 Anion Gap 3 L BUN 26 H Creatinine 1.0 Estim Creat Clear Calc 89.3 eGFR > 60 BUN/Creatinine Ratio 26 H Glucose 196 H Calculated Osmolality 285 Calcium 9.8 Corrected Calcium 10.0 Magnesium 2.0 Total Bilirubin 0.6 AST 35 H ALT 35 Alkaline Phosphatase 71 Ammonia < 10 L Troponin I < 0.020 B-Natriuretic Peptide 206 H Total Protein 6.8 Albumin 3.8 Globulin 3.0 Albumin/Globulin Ratio 1.3 Lipase 50 D Procalcitonin 0.36 Ur Collection Type Urine Color Urine Clarity Urine pH Ur Specific [place] Urine Protein Urine Glucose (UA) Urine Ketones Urine Blood Urine Nitrite Urine Bilirubin Urine Urobilinogen (Auto) Ur Leukocyte Esterase Urine RBC Urine WBC Ur Squamous Epith Cells Ur Transition Epith Cell Ur Renal Epithelial Cell Calcium Carbonate Cryst Calcium Phosphate Cryst Calcium Oxalate Crystal Leucine Crystals Cystine Crystals Uric Acid Crystals Triple Phos Crystals Tyrosine Crystals Amorphous Crystals Urine Bacteria Cellular Casts Epithelial Casts Fatty Casts Hyaline Casts Granular Casts Waxy Casts Broad Casts RBC Casts Urine Mucus Urine Trichomonas Ur Yeast w Hyphae Urine Yeast (Budding) Urine Sperm Ur Oval Fat Bodies Ur Culture Indicated? 05/12/24 05/12/24 05/12/24 00:10 00:10 00:10 WBC RBC Hgb Hct MCV MCH MCHC RDW Std Deviation Plt Count Neut % (Auto) Lymph % (Auto) [place] % (Auto) Eos % (Auto) Baso % (Auto) Neut # (Auto) Lymph # (Auto) [place] # (Auto) Eos # (Auto) Baso # (Auto) Immature Gran # (Auto) Absolute Nucleated RBC Immature Gran % Nucleated RBC % PT INR APTT Puncture Site ABG pH ABG pCO2 ABG pO2 ABG HCO3 ABG O2 Saturation ABG Base Excess Oxygen Liter Flow FiO2 Sodium Potassium Chloride Carbon Dioxide Anion Gap BUN Creatinine Estim Creat Clear Calc eGFR BUN/Creatinine Ratio Glucose Calculated Osmolality Calcium Corrected Calcium Magnesium Total Bilirubin AST ALT Alkaline Phosphatase Ammonia Troponin I B-Natriuretic Peptide Total Protein Albumin Globulin Albumin/Globulin Ratio Lipase Procalcitonin Ur Collection Type Cancelled Clean Catch Urine Color Cancelled Yellow Urine Clarity Cancelled Urine pH Ur Specific [place] Urine Protein Urine Glucose (UA) Urine Ketones Urine Blood Urine Nitrite Urine Bilirubin Urine Urobilinogen (Auto) Ur Leukocyte Esterase Urine RBC Urine WBC Ur Squamous Epith Cells Ur Transition Epith Cell Ur Renal Epithelial Cell Calcium Carbonate Cryst Calcium Phosphate Cryst Calcium Oxalate Crystal Leucine Crystals Cystine Crystals Uric Acid Crystals Triple Phos Crystals Tyrosine Crystals Amorphous Crystals Urine Bacteria Cellular Casts Epithelial Casts Fatty Casts Hyaline Casts Granular Casts Waxy Casts Broad Casts RBC Casts Urine Mucus Urine Trichomonas Ur Yeast w Hyphae Urine Yeast (Budding) Urine Sperm Ur Oval Fat Bodies Ur Culture Indicated? 05/12/24 05/12/24 05/12/24 00:10 00:10 00:10 WBC RBC Hgb Hct MCV MCH MCHC RDW Std Deviation Plt Count Neut % (Auto) Lymph % (Auto) [place] % (Auto) Eos % (Auto) Baso % (Auto) Neut # (Auto) Lymph # (Auto) [place] # (Auto) Eos # (Auto) Baso # (Auto) Immature Gran # (Auto) Absolute Nucleated RBC Immature Gran % Nucleated RBC % PT INR APTT Puncture Site ABG pH ABG pCO2 ABG pO2 ABG HCO3 ABG O2 Saturation ABG Base Excess Oxygen Liter Flow FiO2 Sodium Potassium Chloride Carbon Dioxide Anion Gap BUN Creatinine Estim Creat Clear Calc eGFR BUN/Creatinine Ratio Glucose Calculated Osmolality Calcium Corrected Calcium Magnesium Total Bilirubin AST ALT Alkaline Phosphatase Ammonia Troponin I B-Natriuretic Peptide Total Protein Albumin Globulin Albumin/Globulin Ratio Lipase Procalcitonin Ur Collection Type Urine Color Urine Clarity Turbid A Urine pH Cancelled 6.0 Ur Specific [place] Cancelled 1.023 Urine Protein Cancelled Urine Glucose (UA) Urine Ketones Urine Blood Urine Nitrite Urine Bilirubin Urine Urobilinogen (Auto) Ur Leukocyte Esterase Urine RBC Urine WBC Ur Squamous Epith Cells Ur Transition Epith Cell Ur Renal Epithelial Cell Calcium Carbonate Cryst Calcium Phosphate Cryst Calcium Oxalate Crystal Leucine Crystals Cystine Crystals Uric Acid Crystals Triple Phos Crystals Tyrosine Crystals Amorphous Crystals Urine Bacteria Cellular Casts Epithelial Casts Fatty Casts Hyaline Casts Granular Casts Waxy Casts Broad Casts RBC Casts Urine Mucus Urine Trichomonas Ur Yeast w Hyphae Urine Yeast (Budding) Urine Sperm Ur Oval Fat Bodies Ur Culture Indicated? 05/12/24 05/12/24 05/12/24 00:10 00:10 00:10 WBC RBC Hgb Hct MCV MCH MCHC RDW Std Deviation Plt Count Neut % (Auto) Lymph % (Auto) [place] % (Auto) Eos % (Auto) Baso % (Auto) Neut # (Auto) Lymph # (Auto) [place] # (Auto) Eos # (Auto) Baso # (Auto) Immature Gran # (Auto) Absolute Nucleated RBC Immature Gran % Nucleated RBC % PT INR APTT Puncture Site ABG pH ABG pCO2 ABG pO2 ABG HCO3 ABG O2 Saturation ABG Base Excess Oxygen Liter Flow FiO2 Sodium Potassium Chloride Carbon Dioxide Anion Gap BUN Creatinine Estim Creat Clear Calc eGFR BUN/Creatinine Ratio Glucose Calculated Osmolality Calcium Corrected Calcium Magnesium Total Bilirubin AST ALT Alkaline Phosphatase Ammonia Troponin I B-Natriuretic Peptide Total Protein Albumin Globulin Albumin/Globulin Ratio Lipase Procalcitonin Ur Collection Type Urine Color Urine Clarity Urine pH Ur Specific [place] Urine Protein 2+ A Urine Glucose (UA) Cancelled 1+ A Urine Ketones Cancelled Negative Urine Blood Cancelled Urine Nitrite Urine Bilirubin Urine Urobilinogen (Auto) Ur Leukocyte Esterase Urine RBC Urine WBC Ur Squamous Epith Cells Ur Transition Epith Cell Ur Renal Epithelial Cell Calcium Carbonate Cryst Calcium Phosphate Cryst Calcium Oxalate Crystal Leucine Crystals Cystine Crystals Uric Acid Crystals Triple Phos Crystals Tyrosine Crystals Amorphous Crystals Urine Bacteria Cellular Casts Epithelial Casts Fatty Casts Hyaline Casts Granular Casts Waxy Casts Broad Casts RBC Casts Urine Mucus Urine Trichomonas Ur Yeast w Hyphae Urine Yeast (Budding) Urine Sperm Ur Oval Fat Bodies Ur Culture Indicated? 05/12/24 05/12/24 05/12/24 00:10 00:10 00:10 WBC RBC Hgb Hct MCV MCH MCHC RDW Std Deviation Plt Count Neut % (Auto) Lymph % (Auto) [place] % (Auto) Eos % (Auto) Baso % (Auto) Neut # (Auto) Lymph # (Auto) [place] # (Auto) Eos # (Auto) Baso # (Auto) Immature Gran # (Auto) Absolute Nucleated RBC Immature Gran % Nucleated RBC % PT INR APTT Puncture Site ABG pH ABG pCO2 ABG pO2 ABG HCO3 ABG O2 Saturation ABG Base Excess Oxygen Liter Flow FiO2 Sodium Potassium Chloride Carbon Dioxide Anion Gap BUN Creatinine Estim Creat Clear Calc eGFR BUN/Creatinine Ratio Glucose Calculated Osmolality Calcium Corrected Calcium Magnesium Total Bilirubin AST ALT Alkaline Phosphatase Ammonia Troponin I B-Natriuretic Peptide Total Protein Albumin Globulin Albumin/Globulin Ratio Lipase Procalcitonin Ur Collection Type Urine Color Urine Clarity Urine pH Ur Specific [place] Urine Protein Urine Glucose (UA) Urine Ketones Urine Blood 3+ A Urine Nitrite Cancelled Negative Urine Bilirubin Cancelled Negative Urine Urobilinogen (Auto) Cancelled Ur Leukocyte Esterase Urine RBC Urine WBC Ur Squamous Epith Cells Ur Transition Epith Cell Ur Renal Epithelial Cell Calcium Carbonate Cryst Calcium Phosphate Cryst Calcium Oxalate Crystal Leucine Crystals Cystine Crystals Uric Acid Crystals Triple Phos Crystals Tyrosine Crystals Amorphous Crystals Urine Bacteria Cellular Casts Epithelial Casts Fatty Casts Hyaline Casts Granular Casts Waxy Casts Broad Casts RBC Casts Urine Mucus Urine Trichomonas Ur Yeast w Hyphae Urine Yeast (Budding) Urine Sperm Ur Oval Fat Bodies Ur Culture Indicated? 05/12/24 05/12/24 05/12/24 00:10 00:10 00:10 WBC RBC Hgb Hct MCV MCH MCHC RDW Std Deviation Plt Count Neut % (Auto) Lymph % (Auto) [place] % (Auto) Eos % (Auto) Baso % (Auto) Neut # (Auto) Lymph # (Auto) [place] # (Auto) Eos # (Auto) Baso # (Auto) Immature Gran # (Auto) Absolute Nucleated RBC Immature Gran % Nucleated RBC % PT INR APTT Puncture Site ABG pH ABG pCO2 ABG pO2 ABG HCO3 ABG O2 Saturation ABG Base Excess Oxygen Liter Flow FiO2 Sodium Potassium Chloride Carbon Dioxide Anion Gap BUN Creatinine Estim Creat Clear Calc eGFR BUN/Creatinine Ratio Glucose Calculated Osmolality Calcium Corrected Calcium Magnesium Total Bilirubin AST ALT Alkaline Phosphatase Ammonia Troponin I B-Natriuretic Peptide Total Protein Albumin Globulin Albumin/Globulin Ratio Lipase Procalcitonin Ur Collection Type Urine Color Urine Clarity Urine pH Ur Specific [place] Urine Protein Urine Glucose (UA) Urine Ketones Urine Blood Urine Nitrite Urine Bilirubin Urine Urobilinogen (Auto) Negative Ur Leukocyte Esterase Cancelled Positive Urine RBC Cancelled 1374 H Urine WBC Cancelled Ur Squamous Epith Cells Ur Transition Epith Cell Ur Renal Epithelial Cell Calcium Carbonate Cryst Calcium Phosphate Cryst Calcium Oxalate Crystal Leucine Crystals Cystine Crystals Uric Acid Crystals Triple Phos Crystals Tyrosine Crystals Amorphous Crystals Urine Bacteria Cellular Casts Epithelial Casts Fatty Casts Hyaline Casts Granular Casts Waxy Casts Broad Casts RBC Casts Urine Mucus Urine Trichomonas Ur Yeast w Hyphae Urine Yeast (Budding) Urine Sperm Ur Oval Fat Bodies Ur Culture Indicated? 05/12/24 05/12/24 05/12/24 00:10 00:10 00:10 WBC RBC Hgb Hct MCV MCH MCHC RDW Std Deviation Plt Count Neut % (Auto) Lymph % (Auto) [place] % (Auto) Eos % (Auto) Baso % (Auto) Neut # (Auto) Lymph # (Auto) [place] # (Auto) Eos # (Auto) Baso # (Auto) Immature Gran # (Auto) Absolute Nucleated RBC Immature Gran % Nucleated RBC % PT INR APTT Puncture Site ABG pH ABG pCO2 ABG pO2 ABG HCO3 ABG O2 Saturation ABG Base Excess Oxygen Liter Flow FiO2 Sodium Potassium Chloride Carbon Dioxide Anion Gap BUN Creatinine Estim Creat Clear Calc eGFR BUN/Creatinine Ratio Glucose Calculated Osmolality Calcium Corrected Calcium Magnesium Total Bilirubin AST ALT Alkaline Phosphatase Ammonia Troponin I B-Natriuretic Peptide Total Protein Albumin Globulin Albumin/Globulin Ratio Lipase Procalcitonin Ur Collection Type Urine Color Urine Clarity Urine pH Ur Specific [place] Urine Protein Urine Glucose (UA) Urine Ketones Urine Blood Urine Nitrite Urine Bilirubin Urine Urobilinogen (Auto) Ur Leukocyte Esterase Urine RBC Urine WBC 175 H Ur Squamous Epith Cells Cancelled 1 Ur Transition Epith Cell Cancelled Ur Renal Epithelial Cell Cancelled Calcium Carbonate Cryst Cancelled Calcium Phosphate Cryst Cancelled Calcium Oxalate Crystal Cancelled Leucine Crystals Cancelled Cystine Crystals Cancelled Uric Acid Crystals Cancelled Triple Phos Crystals Cancelled Tyrosine Crystals Cancelled Amorphous Crystals Cancelled Urine Bacteria Cancelled 1+ A Cellular Casts Cancelled Epithelial Casts Cancelled Fatty Casts Cancelled Hyaline Casts Cancelled Granular Casts Cancelled Waxy Casts Cancelled Broad Casts Cancelled RBC Casts Cancelled Urine Mucus Cancelled Urine Trichomonas Cancelled Ur Yeast w Hyphae Cancelled Urine Yeast (Budding) Cancelled Urine Sperm Cancelled Ur Oval Fat Bodies Cancelled Ur Culture Indicated? Cancelled 05/12/24 05/12/24 05/12/24 01:23 04:40 05:17 WBC RBC Hgb Hct MCV MCH MCHC RDW Std Deviation Plt Count Neut % (Auto) Lymph % (Auto) [place] % (Auto) Eos % (Auto) Baso % (Auto) Neut # (Auto) Lymph # (Auto) [place] # (Auto) Eos # (Auto) Baso # (Auto) Immature Gran # (Auto) Absolute Nucleated RBC Immature Gran % Nucleated RBC % PT INR APTT Puncture Site Left Radial Cancelled Left Radial ABG pH 7.33 L Cancelled 7.33 L ABG pCO2 62 H Cancelled 63 H ABG pO2 71 L D Cancelled 85 ABG HCO3 32 H Cancelled 33 H ABG O2 Saturation 95 Cancelled 97 ABG Base Excess 5 H Cancelled 5 H Oxygen Liter Flow Cancelled FiO2 45 Cancelled 55 Sodium Potassium Chloride Carbon Dioxide Anion Gap BUN Creatinine Estim Creat Clear Calc eGFR BUN/Creatinine Ratio Glucose Calculated Osmolality Calcium Corrected Calcium Magnesium Total Bilirubin AST ALT Alkaline Phosphatase Ammonia Troponin I B-Natriuretic Peptide Total Protein Albumin Globulin Albumin/Globulin Ratio Lipase Procalcitonin Ur Collection Type Urine Color Urine Clarity Urine pH Ur Specific [place] Urine Protein Urine Glucose (UA) Urine Ketones Urine Blood Urine Nitrite Urine Bilirubin Urine Urobilinogen (Auto) Ur Leukocyte Esterase Urine RBC Urine WBC Ur Squamous Epith Cells Ur Transition Epith Cell Ur Renal Epithelial Cell Calcium Carbonate Cryst Calcium Phosphate Cryst Calcium Oxalate Crystal Leucine Crystals Cystine Crystals Uric Acid Crystals Triple Phos Crystals Tyrosine Crystals Amorphous Crystals Urine Bacteria Cellular Casts Epithelial Casts Fatty Casts Hyaline Casts Granular Casts Waxy Casts Broad Casts RBC Casts Urine Mucus Urine Trichomonas Ur Yeast w Hyphae Urine Yeast (Budding) Urine Sperm Ur Oval Fat Bodies Ur Culture Indicated? ABG Interpretation ABG results: 05/11/24 05/11/24 05/12/24 21:10 22:09 01:23 ABG pH Cancelled 7.37 7.33 L ABG pCO2 Cancelled 60 H 62 H ABG pO2 Cancelled 240 H D 71 L D ABG HCO3 Cancelled 35 H 32 H ABG O2 Saturation Cancelled 100 H 95 ABG Base Excess Cancelled 7 H 5 H 05/12/24 05/12/24 04:40 05:17 ABG pH Cancelled 7.33 L ABG pCO2 Cancelled 63 H ABG pO2 Cancelled 85 ABG HCO3 Cancelled 33 H ABG O2 Saturation Cancelled 97 ABG Base Excess Cancelled 5 H Quality Measures Quality Measures none Advance care planning discussed with:: patient Assessment & Plan Assessment Current Active Medications: Generic Name Dose Route Start Last Admin Trade Name Freq PRN Reason Stop Dose Admin Acetaminophen 650 mg 05/11/24 23:27 Acetaminophen 325 Mg Tablet PO 06/10/24 23:26 Q4HR PRN PAIN SCALE 1-3 (mild Acetaminophen 650 mg 05/11/24 23:27 Acetaminophen Supp 650 Mg Supp RI 06/10/24 23:26 Q4HR PRN PAIN SCALE 1-3 (mild Acetylcysteine 3 ml 05/12/24 11:00 05/12/24 14:12 Acetylcysteine Rt Maggie 10% 4 Ml Nebu INH 06/11/24 10:59 3 ml Q4HRRT CIPRIANO Administration Albuterol 5 mg 05/12/24 08:30 05/12/24 14:12 Albuterol Rt 2.5 Mg/0.5 Ml Nebu INH 06/11/24 08:29 5 mg Q4HRRT CIPRIANO Administration Enoxaparin Sodium 60 mg 05/12/24 09:45 05/12/24 10:31 Enoxaparin Sod Inj 60 Mg/0.6 Ml Syringe SC 05/26/24 09:44 60 mg QDAY CIPRIANO Administration Furosemide 20 mg 05/11/24 23:45 05/12/24 06:11 Furosemide Inj 10 Mg/Ml Vial 2 Ml IVP 06/10/24 23:44 20 mg BIDD CIPRIANO Administration Fentanyl Citrate 2,500 mcg in 250 mls @ 2.5 mls/hr 05/11/24 23:40 05/12/24 11:30 Sublimaze Inj 2,500 Mcg/250 Ml Bag IV 05/16/24 20:21 0 mcg/hr .Q24H PRN 0 mls/hr PER PROTOCOL Titration Protocol 25 MCG/HR Vancomycin/Sodium Chloride 200 mls @ 120 mls/hr 05/12/24 10:00 05/12/24 10:31 Vancomycin/Ns 1 Gm Ivpb IV 05/19/24 09:59 120 mls/hr BID@1000,2200 CIPRIANO Administration Ampicillin Sodium/Sulbactam 100 mls @ 200 mls/hr 05/12/24 12:00 05/12/24 18:39 Sodium 3 gm/ Sodium Chloride IV 05/19/24 11:59 200 mls/hr Q6HR CIPRIANO Administration Pantoprazole Sodium 40 mg 05/11/24 23:30 05/12/24 08:36 Pantoprazole Inj 40 Mg Vial IVP 06/10/24 23:29 40 mg BID CIPRIANO Administration Plan 73-year-old male with past medical history of CVA with left-sided deficits, hypertension, hyperlipidemia, HFpEF 50% on 11/05, history of COPD, history of type 2 diabetes A1c 8.4 on 10/06 and BPH with indwelling catheter presented to the emergency department from a custodial facility due to shortness of breath and diagnosed to have AHRF 2/2 combined aspiration pneumonia and influenza NEURO Patient is awake, alert, following verbal commands, on mechanical ventilator # History of BPS-imux-idgen residual deficit, bedridden. -Will continue Plavix CARDIO # History of HFpEF (EF 50 to 55% on 10/2023) -Patient is using furosemide 20 Mg p.o. daily. -On physical examination, patient does not appear to be in heart failure -no pedal edema, JVD noted. -EKG done on 05/11/2024-normal sinus rhythm, Q waves in inferior leads, poor R wave progression. -Echo done on 10/2023 - Normal LV size. Probable normal systolic function. Estimated EF 50-55%. RV and RA not well visualized. Mild LA dilatation. Moderate posterior MAC. Mild AV sclerosis without stenosis. -BNP is 206, Trop I - <0.020. Plan -Withheld Lasix for now in view of ongoing KATHIA and suspicion of dehydration. # History of paroxysmal atrial fibrillation -Patient is on Eliquis Plan -Will continue Eliquis 5 Mg twice daily and amiodarone 200 Mg p.o. twice daily # History of hypertension - held antihypertensives as patient is having low blood pressures when patient was sedated Plan -Will monitor his blood pressures and add medications as needed PULM # Acute on chronic hypoxic respiratory failure S/p intubation on 05/11/2024-on mechanical ventilator -Ddx: Left lung collapse superimposed on underlying COPD -Patient is using oxygen at home 05/01 and also using CPAP at night. -Patient was intubated on 04/18/2024 and second hospitalization is a week back discharged yesterday and immediately brought to the hospital for altered mental status for which he was intubated again -CBC showed elevated WBC. -Chest x-ray and CT showed atelectasis in the left lung -ABG after intubation showed respiratory acidosis with compensatory metabolic alkalosis Plan -urine and ET secretions culture were sent -Started on ampicillin and sulbactam [05/12-, vancomycin [05/11- # History of COPD -Patient is using oxygen and CPAP at home -Stop smoking years ago. -On examination, there is no wheeze heard -Will continue mechanical ventilation and maintain SpO2 between 88 and 92. GI #No active problems NEPHRO # Metabolic alkalosis -Likely compensation to respiratory acidosis. ENDO # History of diabetes -Patient is using metformin 500 Mg p.o. twice daily at his nursing facility -HbA1c is 6 on 04/2024 ID # Suspected pneumonia -Chest x-ray-CT chest showed left lung atelectasis -Started on vancomycin and Unasyn. HEME # Leukocytosis -WBC count on 05/12/2024 is 18.3 -Likely reactive versus pneumonia. -Will continue the antibiotics for now MSK # Chronic back pain -Patient is using [place] at home : #BPH with indwelling catheter Plan: -cont tamsulosin SKIN #No active problems DVT prophylaxis: Eliquis GI prophylaxis: Pantoprazole 40 Mg IV Diet: n.p.o. Gutiérrez: Present Lines: Peripheral Antibiotics: vancomycin and Unasyn CODE STATUS: FULL Reason for ICU care: Acute on chronic hypoxic respiratory failure Patient plan of care was discussed with the attending site acquisition specialist, Dr. Love Rollins, PGY1 Attending Provider Attestation/Addendum Patient seen and examined with the above resident, Silvestre Rollins MD. I agree with the findings, assessment, and plan of care as documented except for any differences below. Patient intubated with significant left lung atelectasis from mucus plugging. Adequately recruited with PPV. Patient off sedation and we did try to reach surrogate decision maker for consent. At this point, patient unable to consent himself due to sedative for comfort while on MV. Will try again tomorrow for bronchoscopy to ensure clearance of airways prior to extubation. However continue on albuterol and chest physiotherapy for now. Patient remains on lung protective settings and appropriate prophylaxis at this time. Total critical care time: I personally spent 30 minutes for review of physiologic parameters and directing plan of care throughout the day. This is exclusive of time spent teaching housestaff or performing any separate billable procedures. Patient continues to require critical care services for acute hypoxic respiratory failure from left lung atelectasis/ mucus plugging with increased risk of further morbidity and mortality.
[2024-05-12] MEDS: APIXABAN 2.5 MG TABLET 5 MG PO (20:24)
[2024-05-13] VITALS (60 sets, daily range): BP systolic 134–204; BP diastolic 38–83; PULSE 52–74; RESP 2–22; TEMP 36.3–36.8; O2SAT 93–100
[2024-05-13] MEDS: AMPICILLIN/SULBAC INJ 3 GM in SODIUM CHLORIDE 0.9% (P) 100 ML IV ×3 (00:02→23:08)
[2024-05-13] MEDS: ALBUTEROL RT 2.5 MG/0.5 ML NEBU 5 MG INH ×6 (02:32→23:08)
[2024-05-13] MEDS: ACETYLCYSTEINE RT SOL 10% 4 ML NEBU 3 ML INH ×6 (02:32→23:07)
[2024-05-13] MEDS: PANTOPRAZOLE INJ 40 MG VIAL IVP ×2 (08:12→21:02)
--- NOTE | 2024-05-13 09:00 | XR_ITS ---
Examination: AP chest single view Technique: AP portable semiupright chest single view Exam date and time: May 13, 2024 0753 hrs. Comparison May 12, 2024 Indications: Hypoxic respiratory failure postintubation this week Findings: Moderate enlargement cardiac contour Moderate CHF with vascular congestion and perihilar basilar edema Endotracheal tube tip 6.9 cm above gianluca The orogastric tube is in the stomach tip below the level of the film Impression: Moderate CHF Tracheal tube tip 6.9 cm above gianluca
[2024-05-13 09:37] LABS: Basophils % (Auto) 0 % (0-2.5); Eosinophils % (Auto) 0 % (0-10); Hematocrit 39.6 % (41.0-53.0); Hemoglobin 12.2 g/dL (13.5-16.0); Immature Granulocytes % (Auto) 0 % (0-0); Immature Granulocytes Auto 0.02 Thou/mm3 (0.00-0.00); Lymphocytes # (Auto) 0.5 Thou/mm3 (1.0-4.8); Lymphocytes % (Auto) 7 % (10-50); Mean Corpuscular HGB Conc 30.8 g/dl (31.0-37.0); Mean Corpuscular Hemoglobin 26.3 pg (25.0-35.0); Mean Corpuscular Volume 85 fL (80-100); Monocytes # (Auto) 0.7 Thou/mm3 (0.0-0.8); Monocytes % (Auto) 9 % (0-12); Neutrophils # (Auto) 6.3 Thou/mm3 (1.8-7.7); Neutrophils % (Auto) 84 % (37-80); Nucleated Red Blood Cell % 0 /100 WBC (0); Platelet Count 289 Thou/mm3 (140-440); RDW Standard Deviation 56.1 fL (35.1-43.9); Red Blood Count 4.64 Miln/mm3 (4.50-5.90); White Blood Count 7.5 Thou/mm3 (3.8-10.6)
[2024-05-13 10:29] LABS: Alanine Aminotransferase 23 U/L (10-49); Albumin, Serum 3.8 gm/dL (3.4-4.8); Albumin/Globulin Ratio 1.4 (1.2-2.2); Alkaline Phosphatase 68 U/L (46-116); Anion Gap 10 (7-16); Aspartate Amino Transferase 22 U/L (0-34); BUN/Creatinine Ratio 29 Ratio (12-20); Bilirubin,Total 0.6 mg/dL (0.3-1.2); Blood Urea Nitrogen 26 mg/dL (9-23); Calcium 9.6 mg/dL (8.3-10.6); Calcium (Corrected) 9.8 mg/dL (8.5-10.1); Carbon Dioxide 29.6 mMol/L (20.0-31.0); Chloride 106 mMol/L (98-107); Creatinine (Component) 0.9 mg/dL (0.6-1.3); Estimated Creatinine Clearance 98.4 mL/min (>60); Globulin 2.8 gm/dL (2.3-3.5); Glucose 144 mg/dL (74-106); Osmolality,Calculated 298 (275-295); Potassium 3.4 mMol/L (3.4-5.1); Sodium 146 mMol/L (136-145); Total Protein 6.6 gm/dL (5.7-8.2); Vancomycin,Trough 20.9 mcg/mL (5.0-10.0); eGFR > 60 See Note
[2024-05-13] MEDS: hydrALAZINE INJ 20 MG/ML VIAL 10 MG IV (10:38)
--- NOTE | 2024-05-13 10:40 | PC.SS ---
BINDER SORTER conducted phone contact with [facility] nursing staff to complete initial assessment. Patient currently admitted to ICU. Patient is a long-term resident at [facility]. Patient's friends, Perry Mccain was identified as the patient's emergency contact, however staff informs they are unable to get ahold of him, no other family or friend contact on file. Patient requires danis lift to transfer. Patient is bed bound. Patient utilizes 2-3 L of oxygen at the facility. Patient's PCP is Dr. Owens. Patient to return back to [facility] once medically stable. Patient will need ambulance transport back to SNF. protective services officer to remain available to address any concerns. D/c plan: SNF Next of kin: Perry Mccain [phone]
[2024-05-13] MEDS: VANCOMYCIN/NS 750 MG IVPB 750 MG/150 ML BAG 120 MG IV ×2 (11:02→21:02)
[2024-05-13] MEDS: APIXABAN 2.5 MG TABLET 5 MG NG ×2 (11:08→21:02)
[2024-05-13] MEDS: CLOPIDOGREL BISULFATE 75 MG TABLET NG (11:09)
[2024-05-13] MEDS: amLODIPine BESYLATE 5 MG TABLET 10 MG NG (11:09)
[2024-05-13] MEDS: carVEDILOL 12.5 MG TABLET NG ×2 (11:53→18:24)
[2024-05-13] MEDS: hydrALAZINE HCL 25 MG TABLET 50 MG NG ×2 (13:53→21:02)
[2024-05-13 17:00] LABS: Base Excess 7 (-3-3); HCO3 33 mEq/L (20-26); Inspired O2, VO2 Liters 2 L/min; Inspired Oxygen, FIO2 21 %; O2 Saturation 96 % (91-98); PCO2 51 mmHg (32.0-48.0); PO2 73 mmHg (83-108); pH, Arterial 7.42 (7.35-7.45)
--- NOTE | 2024-05-13 17:03 | PD.RESPRO ---
Documentation for date of: 05/13/24 Subjective Subjective Interval history: This is a 73-year-old male with past medical history of CVA with left-sided deficits, hypertension, hyperlipidemia, HFpEF 50% on 11/05, history of COPD, history of type 2 diabetes on metformin, and BPH with indwelling catheter, recent admission on 05/09/2024 for acute hypoxic respiratory failure and underwent intubation brought to the emergency department from a senior care facility due to shortness of breath and altered mental status. Today the patient presented due to altered mental status unable to protect his airway. Patient was discharged on 05/11 and left the hospital around 5 PM patient spent approximately an hour and a half at the SNF he was only requiring 3 L nasal cannula however one of the nurses found the patient unresponsive bluish coloration of his face increased the oxygen to 5 patient became unresponsive EMS was called when EMS arrived if at 15 L patient was still saturating in the 70s unresponsive. Patient still had a pulse. Upon arrival to the emergency department patient remained altered unable to follow verbal commands and was still very hypoxic. Decision was made to intubate the patient. Patient was admitted to the ICU for further care. 05/12/2024: Patient was seen and examined by the bedside. On mechanical ventilator, patient is awake and able to follow verbal commands. Vitals are stable. On auscultation, bilateral decreased breath sounds noted in view of body habitus. Labs showed elevated WBC count, BUN 26 and rest of the labs are within normal limits. Urine analysis showed 175 WBC, 1374 RBC, 1+ bacteria. ABG showed pH 7.33, pCO2 63, PaO2 85, bicarb 33. Plan to do bronchoscopy on the patient but as the patient is drowsy despite being off the sedation and as not able to reach legal surrogate, postpone the procedure to tomorrow. Will continue chest physiotherapy, albuterol and Mucomyst nebulizations. 05/13/2024: Patient was kept off sedation since yesterday as he was calm and compliant with the vent. ABG showed pH 7.42, pCO2 51, pO2 73, HCO3 33. ET secretion cultures negative. Urine culture negative 24 hours. WBC has significantly downtrended from 18.3 to 7.5. Patient has been saturating well on 40% FiO2. Patient then self-extubated today at 15:20. He did well on nasal cannula. He will require NIPPV with BiPAP at night and whenever he is sleeping. Patient to remain NPO overnight. Exam Vital Signs Temp Pulse Resp BP Pulse Ox O2 Del Method O2 Flow Rate 98.0 F 61 16 138/44 H 100 Humidified Nasal Cannula 3 05/13/24 19:00 05/13/24 23:39 05/13/24 23:39 05/13/24 23:00 05/13/24 23:39 05/13/24 23:00 05/13/24 23:39 FiO2 40 05/13/24 14:17 Narrative Exam General: Awake and in no acute distress. Answering questions appropriately. Morbidly obese. HEENT: Normocephalic, atraumatic, mucous membranes moist. Heart: Regular rate and rhythm, no murmurs. Lungs: Clear to auscultation with no wheezing or crackles. Bilateral decreased breath sounds noted. Abdomen: Soft, nondistended, nontender, positive bowel sounds. ?No guarding or rebound tenderness. Neurologic: Able to follow verbal commands and decreased movements noted on the left side due to previous CVA. Extremities: L>R peripheral low extremity edema. Skin: No rash or ecchymoses. Objective Labs 05/16/24 04:21 05/16/24 04:21 Labs: Laboratory Results - last 24 hr 05/13/24 05/13/24 09:10 16:35 WBC 7.5 D RBC 4.64 Hgb 12.2 L Hct 39.6 L MCV 85 MCH 26.3 MCHC 30.8 L RDW Std Deviation 56.1 H Plt Count 289 D Neut % (Auto) 84 H Lymph % (Auto) 7 L [place] % (Auto) 9 Eos % (Auto) 0 Baso % (Auto) 0 Neut # (Auto) 6.3 Lymph # (Auto) 0.5 L [place] # (Auto) 0.7 Eos # (Auto) 0.0 Baso # (Auto) 0.0 Immature Gran # (Auto) 0.02 H Absolute Nucleated RBC 0.00 Immature Gran % 0 Nucleated RBC % 0 Puncture Site Site Not Noted ABG pH 7.42 ABG pCO2 51 H D ABG pO2 73 L ABG HCO3 33 H ABG O2 Saturation 96 ABG Base Excess 7 H Oxygen Liter Flow 2 FiO2 21 Sodium 146 H Potassium 3.4 D Chloride 106 Carbon Dioxide 29.6 Anion Gap 10 BUN 26 H Creatinine 0.9 Estim Creat Clear Calc 98.4 eGFR > 60 BUN/Creatinine Ratio 29 H Glucose 144 H D Calculated Osmolality 298 H Calcium 9.6 Corrected Calcium 9.8 Total Bilirubin 0.6 AST 22 ALT 23 Alkaline Phosphatase 68 Total Protein 6.6 Albumin 3.8 Globulin 2.8 Albumin/Globulin Ratio 1.4 Vancomycin Trough 20.9 H* ABG Interpretation ABG results: 05/11/24 05/11/24 05/12/24 21:10 22:09 01:23 ABG pH Cancelled 7.37 7.33 L ABG pCO2 Cancelled 60 H 62 H ABG pO2 Cancelled 240 H D 71 L D ABG HCO3 Cancelled 35 H 32 H ABG O2 Saturation Cancelled 100 H 95 ABG Base Excess Cancelled 7 H 5 H 05/12/24 05/12/24 05/13/24 04:40 05:17 16:35 ABG pH Cancelled 7.33 L 7.42 ABG pCO2 Cancelled 63 H 51 H D ABG pO2 Cancelled 85 73 L ABG HCO3 Cancelled 33 H 33 H ABG O2 Saturation Cancelled 97 96 ABG Base Excess Cancelled 5 H 7 H Quality Measures Quality Measures none Advance care planning discussed with:: patient Assessment & Plan Assessment Current Active Medications: Generic Name Dose Route Start Last Admin Trade Name Freq PRN Reason Stop Dose Admin Acetaminophen 650 mg 05/11/24 23:27 Acetaminophen 325 Mg Tablet PO 06/10/24 23:26 Q4HR PRN PAIN SCALE 1-3 (mild Acetaminophen 650 mg 05/11/24 23:27 Acetaminophen Supp 650 Mg Supp TX 06/10/24 23:26 Q4HR PRN PAIN SCALE 1-3 (mild Acetylcysteine 3 ml 05/12/24 11:00 05/13/24 23:07 Acetylcysteine Rt Maggie 10% 4 Ml Nebu INH 06/11/24 10:59 3 ml Q4HRRT CIPRIANO Administration Albuterol 5 mg 05/12/24 08:30 05/13/24 23:08 Albuterol Rt 2.5 Mg/0.5 Ml Nebu INH 06/11/24 08:29 5 mg Q4HRRT CIPRIANO Administration Amlodipine Besylate 10 mg 05/13/24 10:45 05/13/24 11:09 Amlodipine Besylate 5 Mg Tablet NG 06/12/24 10:44 10 mg QDAY CIPRIANO Administration Apixaban 5 mg 05/13/24 10:45 05/13/24 21:02 Apixaban 2.5 Mg Tablet NG 06/12/24 10:44 5 mg BID CIPRIANO Administration Carvedilol 12.5 mg 05/13/24 10:45 05/13/24 18:24 Carvedilol 12.5 Mg Tablet NG 06/12/24 10:44 12.5 mg BIDWM CIPRIANO Administration Clopidogrel Bisulfate 75 mg 05/13/24 10:45 05/13/24 11:09 Clopidogrel Bisulfate 75 Mg Tablet NG 06/12/24 10:44 75 mg QDAY CIPRIANO Administration Furosemide 20 mg 05/11/24 23:45 05/12/24 06:11 Furosemide Inj 10 Mg/Ml Vial 2 Ml IVP 06/10/24 23:44 20 mg BIDD CIPRIANO Administration Hydralazine HCl 50 mg 05/13/24 14:00 05/13/24 21:02 Hydralazine Hcl 25 Mg Tablet NG 06/12/24 13:59 50 mg TID CIPRIANO Administration Fentanyl Citrate 2,500 mcg in 250 mls @ 2.5 mls/hr 05/11/24 23:40 05/12/24 11:30 Sublimaze Inj 2,500 Mcg/250 Ml Bag IV 05/16/24 20:21 0 mcg/hr .Q24H PRN 0 mls/hr PER PROTOCOL Titration Protocol 25 MCG/HR Ampicillin Sodium/Sulbactam 100 mls @ 200 mls/hr 05/12/24 12:00 05/13/24 23:08 Sodium 3 gm/ Sodium Chloride IV 05/19/24 11:59 200 mls/hr Q6HR CIPRIANO Administration Vancomycin/Sodium Chloride 750 mg in 150 mls @ 120 mls/hr 05/13/24 11:00 05/13/24 21:02 Vancomycin/Ns 750 Mg Ivpb IV 05/20/24 10:59 120 mls/hr BID@1000,2200 CIPRIANO Administration Protocol Pantoprazole Sodium 40 mg 05/11/24 23:30 05/13/24 21:02 Pantoprazole Inj 40 Mg Vial IVP 06/10/24 23:29 40 mg BID CIPRIANO Administration Pharmacy Consult 1 each 05/13/24 09:00 Vancomycin Pharmacy To Dose 1 Each Each IV 06/12/24 08:59 QDAY PRN PROTOCOL Plan Summary: 73-year-old male admitted to the ICU due to acute hypoxic respiratory failure in the setting of aspiration requiring mechanical ventilation. 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 05/13/2024 Pt self-extubated. Did fine on NC, mentation at baseline. Post intubation abg did not show hypercapnia. Pt was hypoxic on arrival. CT head was negative on admission -Continue home Plavix 75 mg qday Cardio: #History of HFrEF (EF 45%) #History of paroxysmal afib on AC On admission BNP 204, L sided peripheral edema noted may be secondary to CVA deficits -Continue home amiodarone 200 mg BID -Continue home furosemide 20 mg q72h -Continue home Eliquis 5 mg BID #History of hypertension -Continue home amlodipine 10 mg qday -Continue home carvedilol 12.5 mg BIDWM -Continue home hydralazine 50 mg TID Pulm: #Acute hypoxic respiratory failure s/p extubation #ARDS, mild #History of COPD #Obstructive sleep apnea #Obesity hypoventilation Etiology possible another aspiration, COPD exacerbation, mucous plugging causing left lung collapse, heart failure exacerbation. Required intubation due to airway protection due altered mentation, increased work of breathing and poor oxygenation CTA chest 05/11 showed negative for pulmonary artery emboli, extensive atelectasis left lung, pneumonia and/or edema in the right lung. There was evidence of a large mucous plugging in the left bronchus -Continue antibiotics (see ID section) -Discontinued Decadron 10mg BID IV -Continue albuterol and mucomyst breathing treatments -Continue chest physiotherapy -Goal SpO2 88-92% -Patient should be mobilized to bedside chair as much as possible -BiPAP required at night and when patient is sleeping GI: -NPO for tonight -Swallow evaluation tomorrow Renal: No active problems Endo: #History of type 2 diabetes A1c 6.0 on 04/18 - not in diabetic range currently -Hold home metformin -Blood sugars in acceptable ranges 100s on chem panel -Will initiate sliding scale as needed Heme: #Leukocytosis, resolved Likely in the setting of sepsis, reactive due steroid use On admission WBC 18.3. Downtrended -Treat underlying condition ID: #Sepsis secondary to pneumonia #Community acquired pneumonia versus aspiration pneumonia Patient had an admission on 05/09-05/11 prior to which he had an aspiration event while chewing tobacco, was admitted to the ICU for AHRF secondary to pneumonia. He was downgraded to the floor on 05/11 and discharged back to his facility due to improvement of clinical condition and return to baseline. However he developed an acute hypoxic event within an hour after discharge, required coming back to ED and intubation. Procal was negative. Flu, COVID, RSV negative. 05/11 sputum culture negative, urine culture negative, 05/09 MRSA screen negative -Discontinued vancomycin -Continue IV Unasyn Skin/MSK: No active problems : #BPH with indwelling catheter #History of penile implant Patient came with Gutiérrez catheter from SNF. According to facility staff, Gutiérrez can be changed by nursing, no special procedures needed. -Gutiérrez was replaced 05/10 when patient was in ICU last admission -Continue home tamsulosin ICU Health Maintenance: Mechanical ventilation: Extubated 05/13 Sedation: None FEN: Carb consistent low cardiac dysphagia 3 DVT ppx: heparin GI ppx: protonix Gutiérrez: indewlling from SNF IV lines: 3 peripheral Central line: R subclavian Arterial line: none Code status: FULL code Dispo: Telemetry to continue care Patient plan of care was discussed with the attending physician, Dr. Aleman. Suze Barney, PGY-2 Attending Provider Attestation/Addendum Patient seen and examined with the above resident, Suze Barney MD. I agree with the findings, assessment, and plan of care as documented except for any differences below. Patient stable on vent this AM. Need to maintain HOB elevated and mobilize patient with Trav lift to ensure adequate clearance and prevention of recurrent episodes of respiratory failure. Patient should wear Bipap at night and with naps during the day. Chest physiotherapy. Continue on Unasyn and steroids can be tapered off in coming days. Will need some coordination for transition back to SNF including role of NIPPV if able to obtain. Patient unfortunately did self extubate prior to my ability to perform bronchoscopy on him. This will be considered again in future. He was too sedated to consent until this AM but eventually awake enough to remove tube with restraints off. No surrogate could be reached by housestaff. Must stay NPO until swallow evaluation completed. Total critical time: I personally spent 40 minutes reviewing physiologic parameters, directing plan of care, and counseling patient at the bedside. This is exclusive of time spent teaching housestaff or performing any separate billable procedures. Patient continues to require critical care services for acute on chronic mixed respiratory failure with increased riks of morbidity and mortality given his prior history of CVA/ recurrent admissions with need for PPV ( invasive/ non-invasive).
[2024-05-13 17:04] LABS: Allen Test Not Performed; Puncture Site Site Not Noted
--- NOTE | 2024-05-13 17:11 | PC.RT ---
pt found by RN to have self-extubated, pt now on 2L nasal cannula, tolerating well, no respiratory distress noted at this time
[2024-05-14] VITALS (45 sets, daily range): BP systolic 131–160; BP diastolic 43–96; PULSE 50–96; RESP 1–44; TEMP 36.3–36.8; O2SAT 95–100; BMI 40.1
[2024-05-14] MEDS: ACETYLCYSTEINE RT SOL 10% 4 ML NEBU 3 ML INH ×6 (03:35→22:20)
[2024-05-14] MEDS: ALBUTEROL RT 2.5 MG/0.5 ML NEBU 5 MG INH ×6 (03:36→22:20)
[2024-05-14] MEDS: AMPICILLIN/SULBAC INJ 3 GM in SODIUM CHLORIDE 0.9% (P) 100 ML IV ×3 (05:43→18:03)
[2024-05-14] MEDS: hydrALAZINE HCL 25 MG TABLET 50 MG NG ×3 (05:43→21:09)
[2024-05-14 07:27] LABS: Basophils % (Auto) 0 % (0-2.5); Eosinophils # (Auto) 0.1 Thou/mm3 (0.0-0.5); Eosinophils % (Auto) 1 % (0-10); Hematocrit 36.8 % (41.0-53.0); Hemoglobin 11.2 g/dL (13.5-16.0); Immature Granulocytes % (Auto) 0 % (0-0); Immature Granulocytes Auto 0.03 Thou/mm3 (0.00-0.00); Lymphocytes # (Auto) 0.9 Thou/mm3 (1.0-4.8); Lymphocytes % (Auto) 9 % (10-50); Mean Corpuscular HGB Conc 30.4 g/dl (31.0-37.0); Mean Corpuscular Hemoglobin 26.4 pg (25.0-35.0); Mean Corpuscular Volume 87 fL (80-100); Monocytes # (Auto) 0.8 Thou/mm3 (0.0-0.8); Monocytes % (Auto) 8 % (0-12); Neutrophils % (Auto) 82 % (37-80); Nucleated Red Blood Cell % 0 /100 WBC (0); Platelet Count 217 Thou/mm3 (140-440); RDW Standard Deviation 59.1 fL (35.1-43.9); Red Blood Count 4.24 Miln/mm3 (4.50-5.90); White Blood Count 9.8 Thou/mm3 (3.8-10.6)
[2024-05-14 07:43] LABS: Alanine Aminotransferase 21 U/L (10-49); Albumin, Serum 3.4 gm/dL (3.4-4.8); Albumin/Globulin Ratio 1.3 (1.2-2.2); Alkaline Phosphatase 61 U/L (46-116); Anion Gap 5 (7-16); Aspartate Amino Transferase 19 U/L (0-34); BUN/Creatinine Ratio 28 Ratio (12-20); Bilirubin,Total 0.5 mg/dL (0.3-1.2); Blood Urea Nitrogen 22 mg/dL (9-23); Calcium 9.4 mg/dL (8.3-10.6); Calcium (Corrected) 9.9 mg/dL (8.5-10.1); Carbon Dioxide 31.9 mMol/L (20.0-31.0); Chloride 109 mMol/L (98-107); Creatinine (Component) 0.8 mg/dL (0.6-1.3); Estimated Creatinine Clearance 111.7 mL/min (>60); Globulin 2.6 gm/dL (2.3-3.5); Glucose 117 mg/dL (74-106); Osmolality,Calculated 294 (275-295); Potassium 3.4 mMol/L (3.4-5.1); Sodium 146 mMol/L (136-145); eGFR > 60 See Note
--- NOTE | 2024-05-14 09:00 | XR_ITS ---
Examination: AP chest single view Technique: AP upright portable chest single view Exam date and time: May 14, 2024 1009 hrs. Comparison March 13, 2024 Indications: Moderate CHF hypoxic respiratory failure yesterday with postintubation on chest film May 13, 2024 Findings: Mild to moderate CHF Moderate enlargement cardiac contour with prominent vascular congestion Pneumonia both bases with left pleural fluid Right subclavian central line tip SVC satisfactory position Impression: Mild to moderate CHF Pneumonia both bases with significant left pleural fluid
[2024-05-14] MEDS: amLODIPine BESYLATE 5 MG TABLET 10 MG NG (09:09)
[2024-05-14] MEDS: PANTOPRAZOLE INJ 40 MG VIAL IVP ×2 (09:09→21:05)
[2024-05-14] MEDS: APIXABAN 2.5 MG TABLET 5 MG NG ×2 (09:10→21:05)
[2024-05-14] MEDS: CLOPIDOGREL BISULFATE 75 MG TABLET NG (09:11)
[2024-05-14] MEDS: VANCOMYCIN/NS 750 MG IVPB 750 MG/150 ML BAG 120 MG IV (10:35)
--- NOTE | 2024-05-14 12:22 | PCS.ST ---
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 Recommend D3 and thin liquids at this time. PRINT [employer] CHIEF CLERK will continue to follow x1 for diet tolerance.
--- NOTE | 2024-05-14 15:32 | PC.NURSE ---
1530- patient. s urine output dark diogo color, dr. billings is aware.
--- NOTE | 2024-05-14 17:12 | EVENTNT_ITS ---
Documentation for date of: 05/14/24 Event Note Event Note: Have received down-grade signout from ICU resident Dr. Barney (PGY-2). In summary, patient is a 73 year old male with history of CVA and left-sided deficits, hypertension, hyperlipidemia, HFpEF (50%), COPD (3L), T2DM, and BPH wh o presented to the ED from SNF due to SOB and AMS, was found to be unable to protect his airway and was intubated. While in ICU, bronchoscopy was planned however unable to be completed due to patient's drowsy state off sedation inability to reach legal surrogate, patient eventually self extubated prior to bronchoscopy. Patient will be downgraded to floors, ICU team advises patient continue physical activity and movement as tolerated, advises movement from bed to chair. Patient will be seen by hospitalist team beginning morning of 05/15/2024. Patient case discussed with attending physician Dr. Bandar Thomas, DO PGY-3 Attending attestation: 73-year-old with multiple comorbidities including hypertension, hyperlipidemia, type 2 diabetes mellitus, CVA with left-sided residual deficits, heart failure with preserved EF with a EF 50% and COPD on 3 L supplemental oxygen, BPH with chronic indwelling Gutiérrez catheter who presents with acute hypoxic hypercapnic respiratory failure and subsequently admitted to ICU and patient noted to have left mucous plugging pending bronchoscopy however patient self extubated prior to performing of bronchoscopy. As a result, patient subsequently downgraded to telemetry and ICU team recommended aggressive Mucomyst and chest therapy. As of now, patient is currently on 3 L supplemental oxygen and denies any complaint. Will continue to monitor the patient closely on telemetry. I reviewed above note and agree with findings and plans. I have also personally examined the patient with medicine team and went over assessment and plan with medical team including post graduate internship and resident physician.
--- NOTE | 2024-05-14 17:21 | ESPR_ITS ---
Documentation for date of: 05/14/24 Subjective Subjective Interval history: This is a 73-year-old male with past medical history of CVA with left-sided deficits, hypertension, hyperlipidemia, HFpEF 50% on 11/05, history of COPD, history of type 2 diabetes on metformin, and BPH with indwelling catheter, recent admission on 05/09/2024 for acute hypoxic respiratory failure and underwent intubation brought to the emergency department from a senior care facility due to shortness of breath and altered mental status. Today the patient presented due to altered mental status unable to protect his airway. Patient was discharged on 05/11 and left the hospital around 5 PM patient spent approximately an hour and a half at the SNF he was only requiring 3 L nasal cannula however one of the nurses found the patient unresponsive bluish coloration of his face increased the oxygen to 5 patient became unresponsive EMS was called when EMS arrived if at 15 L patient was still saturating in the 70s unresponsive. Patient still had a pulse. Upon arrival to the emergency department patient remained altered unable to follow verbal commands and was still very hypoxic. Decision was made to intubate the patient. Patient will be transferred to the ICU for further care. 05/12/2024: Patient was seen and examined by the bedside. On mechanical ventilator, patient is awake and able to follow verbal commands. Vitals are stable. On auscultation, bilateral decreased breath sounds noted in view of body habitus. Labs showed elevated WBC count, BUN 26 and rest of the labs are within normal limits. Urine analysis showed 175 WBC, 1374 RBC, 1+ bacteria. ABG showed pH 7.33, pCO2 63, PaO2 85, bicarb 33. Plan to do bronchoscopy on the patient but as the patient is drowsy despite being off the sedation and as not able to reach legal surrogate, postpone the procedure to tomorrow. Will continue chest physiotherapy, albuterol and Mucomyst nebulizations. 05/13/2024: Patient was kept off sedation since yesterday as he was calm and compliant with the vent. Patient self-extubated today at 15:20. 05/14/2024: Patient has been saturating well on 3L nasal cannula, awake and arousable to voice, asks to drink fluids. Patient passes swallow screen and approved for dysphagia 3 diet. Patient has significantly improved clinically so will no longer do bronchoscopy, but he will need mobilization in order improve pulmonary recovery, due to bedbound state he has significant atelectasis. Patient needs to sit up in chair for intervals during the day. Discussed with RN, ordered PT. Patient also MUST wear the BiPAP at night or when he is asleep. Discussed with RT. Will continue with Unasyn for pneumonia, albuterol and Mucomyst as scheduled as well as chest physiotherapy. Patient was downgraded today to Telemetry and Team B will assume care tomorrow. Exam Vital Signs Temp Pulse Resp BP Pulse Ox O2 Del Method O2 Flow Rate 97.9 F 52 L 15 143/55 H 97 Nasal Cannula 3 05/15/24 04:00 05/15/24 05:04 05/15/24 04:00 05/15/24 05:04 05/15/24 04:00 05/14/24 19:55 05/14/24 22:21 FiO2 40 05/15/24 02:55 Narrative Exam General: Awake and in no acute distress. Answering questions appropriately. Morbidly obese. HEENT: Normocephalic, atraumatic, mucous membranes moist. Heart: Regular rate and rhythm, no murmurs. Lungs: Clear to auscultation with no wheezing or crackles. Bilateral decreased breath sounds noted. Abdomen: Soft, nondistended, nontender, positive bowel sounds. ?No guarding or rebound tenderness. Neurologic: Able to follow verbal commands and decreased movements noted on the left side due to previous CVA. Extremities: L>R peripheral low extremity edema. Skin: No rash or ecchymoses. Objective Labs 05/15/24 05:30 05/15/24 15:06 Labs: Laboratory Results - last 24 hr 05/14/24 05/14/24 06:00 21:02 WBC 9.8 RBC 4.24 L Hgb 11.2 L Hct 36.8 L MCV 87 MCH 26.4 MCHC 30.4 L RDW Std Deviation 59.1 H Plt Count 217 D Neut % (Auto) 82 H Lymph % (Auto) 9 L [place] % (Auto) 8 Eos % (Auto) 1 Baso % (Auto) 0 Neut # (Auto) 8.0 H Lymph # (Auto) 0.9 L [place] # (Auto) 0.8 Eos # (Auto) 0.1 Baso # (Auto) 0.0 Immature Gran # (Auto) 0.03 H Absolute Nucleated RBC 0.00 Immature Gran % 0 Nucleated RBC % 0 Sodium 146 H Potassium 3.4 Chloride 109 H Carbon Dioxide 31.9 H Anion Gap 5 L BUN 22 Creatinine 0.8 Estim Creat Clear Calc 111.7 eGFR > 60 BUN/Creatinine Ratio 28 H Glucose 117 H Calculated Osmolality 294 Calcium 9.4 Corrected Calcium 9.9 Total Bilirubin 0.5 AST 19 ALT 21 Alkaline Phosphatase 61 Total Protein 6.0 Albumin 3.4 Globulin 2.6 Albumin/Globulin Ratio 1.3 Vancomycin Trough 19.3 H ABG Interpretation ABG results: 05/11/24 05/11/24 05/12/24 21:10 22:09 01:23 ABG pH Cancelled 7.37 7.33 L ABG pCO2 Cancelled 60 H 62 H ABG pO2 Cancelled 240 H D 71 L D ABG HCO3 Cancelled 35 H 32 H ABG O2 Saturation Cancelled 100 H 95 ABG Base Excess Cancelled 7 H 5 H 05/12/24 05/12/24 05/13/24 04:40 05:17 16:35 ABG pH Cancelled 7.33 L 7.42 ABG pCO2 Cancelled 63 H 51 H D ABG pO2 Cancelled 85 73 L ABG HCO3 Cancelled 33 H 33 H ABG O2 Saturation Cancelled 97 96 ABG Base Excess Cancelled 5 H 7 H Quality Measures Quality Measures none Advance care planning discussed with:: patient Assessment & Plan Assessment Current Active Medications: Generic Name Dose Route Start Last Admin Trade Name Freq PRN Reason Stop Dose Admin Acetaminophen 650 mg 05/11/24 23:27 Acetaminophen 325 Mg Tablet PO 06/10/24 23:26 Q4HR PRN PAIN SCALE 1-3 (mild Acetaminophen 650 mg 05/11/24 23:27 Acetaminophen Supp 650 Mg Supp NE 06/10/24 23:26 Q4HR PRN PAIN SCALE 1-3 (mild Acetylcysteine 3 ml 05/12/24 11:00 05/15/24 02:55 Acetylcysteine Rt Maggie 10% 4 Ml Nebu INH 06/11/24 10:59 Not Given Q4HRRT CIPRIANO Albuterol 5 mg 05/12/24 08:30 05/15/24 02:54 Albuterol Rt 2.5 Mg/0.5 Ml Nebu INH 06/11/24 08:29 5 mg Q4HRRT CIPRIANO Administration Amlodipine Besylate 10 mg 05/13/24 10:45 05/14/24 09:09 Amlodipine Besylate 5 Mg Tablet NG 06/12/24 10:44 10 mg QDAY CIPRIANO Administration Apixaban 5 mg 05/13/24 10:45 05/14/24 21:05 Apixaban 2.5 Mg Tablet NG 06/12/24 10:44 5 mg BID CIPRIANO Administration Carvedilol 12.5 mg 05/13/24 10:45 05/14/24 18:03 Carvedilol 12.5 Mg Tablet NG 06/12/24 10:44 12.5 mg BIDWM CIPRIANO Administration Clopidogrel Bisulfate 75 mg 05/13/24 10:45 05/14/24 09:11 Clopidogrel Bisulfate 75 Mg Tablet NG 06/12/24 10:44 75 mg QDAY CIPRIANO Administration Hydralazine HCl 50 mg 05/13/24 14:00 05/15/24 05:04 Hydralazine Hcl 25 Mg Tablet NG 06/12/24 13:59 50 mg TID CIPRIANO Administration Ampicillin Sodium/Sulbactam 100 mls @ 200 mls/hr 05/12/24 12:00 05/15/24 05:04 Sodium 3 gm/ Sodium Chloride IV 05/19/24 11:59 200 mls/hr Q6HR CIPRIANO Administration Pantoprazole Sodium 40 mg 05/11/24 23:30 05/14/24 21:05 Pantoprazole Inj 40 Mg Vial IVP 06/10/24 23:29 40 mg BID CIPRIANO Administration Plan Summary: 73-year-old male admitted to the ICU due to acute hypoxic respiratory failure in the setting of aspiration requiring mechanical ventilation. Assessment and plan: CUSTOMER CONTACT SPECIALIST: #Acute encephalopathy, resolved #History of CVA with L sided deficits Patient presented to the ED with AMS, most likely secondary to hypoxic respiratory failure. Post intubation abg did not show hypercapnia. Pt was hypoxic on arrival. CT head was negative on admission -Continue home Plavix 75 mg qday Cardio: #History of HFrEF (EF 45%) #History of paroxysmal afib on AC On admission BNP 204, L sided peripheral edema noted may be secondary to CVA deficits -Continue home amiodarone 200 mg BID -Continue home furosemide 20 mg q72h -Continue home Eliquis 5 mg BID #History of hypertension -Continue home amlodipine 10 mg qday -Continue home carvedilol 12.5 mg BIDWM -Continue home hydralazine 50 mg TID Pulm: #Acute hypoxic respiratory failure s/p extubation #ARDS, mild #History of COPD #Obstructive sleep apnea #Obesity hypoventilation Etiology possible another aspiration, COPD exacerbation, mucous plugging causing left lung collapse, heart failure exacerbation. Required intubation due to airway protection due altered mentation, increased work of breathing and poor oxygenation CTA chest 05/11 showed negative for pulmonary artery emboli, extensive atelectasis left lung, pneumonia and/or edema in the right lung. There was evidence of a large mucous plugging in the left bronchus -Continue antibiotics (see ID section) -Discontinued Decadron 10mg BID IV -Continue albuterol and mucomyst breathing treatments -Continue chest physiotherapy -Goal SpO2 88-92% -Patient should be mobilized to bedside chair as much as possible -BiPAP required at night and when patient is sleeping GI: No active problems Renal: No active problems Endo: #History of type 2 diabetes A1c 6.0 on 04/18 - not in diabetic range currently -Hold home metformin -Blood sugars in acceptable ranges 100s on chem panel -Will initiate sliding scale as needed Heme: #Leukocytosis, resolved Likely in the setting of sepsis, reactive due steroid use On admission WBC 18.3. Downtrended -Treat underlying condition ID: #Sepsis secondary to pneumonia #Community acquired pneumonia versus aspiration pneumonia Patient had an admission on 05/09-05/11 prior to which he had an aspiration event while chewing tobacco, was admitted to the ICU for AHRF secondary to pneumonia. He was downgraded to the floor on 05/11 and discharged back to his facility due to improvement of clinical condition and return to baseline. However he developed an acute hypoxic event within an hour after discharge, required coming back to ED and intubation. Procal was negative. Flu, COVID, RSV negative. 05/11 sputum culture negative, urine culture negative, 05/09 MRSA screen negative -Discontinued vancomycin -Continue IV Unasyn Skin/MSK: No active problems : #BPH with indwelling catheter #History of penile implant Patient came with Gutiérrez catheter from SNF. According to facility staff, Gutiérrez can be changed by nursing, no special procedures needed. -Gutiérrez was replaced 05/10 when patient was in ICU last admission -Continue home tamsulosin ICU Health Maintenance: Mechanical ventilation: Extubated 05/13 Sedation: None FEN: Carb consistent low cardiac dysphagia 3 DVT ppx: heparin GI ppx: protonix Gutiérrez: indewlling from SNF IV lines: 3 peripheral Central line: R subclavian Arterial line: none Code status: FULL code Dispo: Telemetry to continue care Patient plan of care was discussed with the attending physician, Dr. Aleman. Suze Barney, PGY-2 Attending Provider Attestation/Addendum Patient seen and examined with the above resident, Suze Barney MD. I agree with the findings, assessment, and plan of care as documented except for any differences below. Patient stable on NC this AM,did not wear Bipap overnight. Continue course of Unasyn to completion. Steroid to be tapered and on BD with chest physiotherapy. Patient should be mobilized to prevent ongoing recurrent mucus plugging and atelectasis that leads to hypercapnic respiratory failure. Bipap at night to be coordinated on discharge to prevent recurrence in setting of airway disease and OHS. Patient with possible central component as well given history of CVA. Patient should remain HOB >45 and passed swallow to day with close monitoring during meals to avoid aspiration being missed. Patient will be transferred to medicine. Bipap was brought into room at end of rounds and patient wore while he was napping. Needs to continue during hospitalization and on discharge to facility. Total critical care time: I personally spent 30 minutes for review of physiologic parameters, directing plan of care, and coordination of care. This is exclusive of time spent teaching housestaff or performing any separate billable procedures.
[2024-05-14] MEDS: carVEDILOL 12.5 MG TABLET NG (18:03)
[2024-05-14 21:32] LABS: Vancomycin,Trough 19.3 mcg/mL (5.0-10.0)
[2024-05-15] VITALS (26 sets, daily range): BP systolic 129–143; BP diastolic 52–76; PULSE 50–71; RESP 12–20; TEMP 36.3–36.7; O2SAT 93–99; BMI 40.1
[2024-05-15] MEDS: AMPICILLIN/SULBAC INJ 3 GM in SODIUM CHLORIDE 0.9% (P) 100 ML IV ×4 (00:16→17:17)
[2024-05-15] MEDS: ALBUTEROL RT 2.5 MG/0.5 ML NEBU 5 MG INH ×6 (02:54→22:59)
--- NOTE | 2024-05-15 02:55 | PC.RT ---
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
[2024-05-15] MEDS: hydrALAZINE HCL 25 MG TABLET 50 MG NG ×3 (05:04→21:10)
[2024-05-15 06:55] LABS: Basophils % (Auto) 0 % (0-2.5); Eosinophils # (Auto) 0.3 Thou/mm3 (0.0-0.5); Eosinophils % (Auto) 4 % (0-10); Hematocrit 34.7 % (41.0-53.0); Hemoglobin 10.5 g/dL (13.5-16.0); Immature Granulocytes % (Auto) 0 % (0-0); Immature Granulocytes Auto 0.03 Thou/mm3 (0.00-0.00); Lymphocytes % (Auto) 12 % (10-50); Mean Corpuscular HGB Conc 30.3 g/dl (31.0-37.0); Mean Corpuscular Hemoglobin 26.4 pg (25.0-35.0); Mean Corpuscular Volume 87 fL (80-100); Monocytes # (Auto) 0.7 Thou/mm3 (0.0-0.8); Monocytes % (Auto) 8 % (0-12); Neutrophils # (Auto) 6.5 Thou/mm3 (1.8-7.7); Neutrophils % (Auto) 76 % (37-80); Nucleated Red Blood Cell % 0 /100 WBC (0); Platelet Count 216 Thou/mm3 (140-440); RDW Standard Deviation 57.9 fL (35.1-43.9); Red Blood Count 3.97 Miln/mm3 (4.50-5.90); White Blood Count 8.6 Thou/mm3 (3.8-10.6)
[2024-05-15] MEDS: ACETYLCYSTEINE RT SOL 10% 4 ML NEBU 3 ML INH ×5 (07:12→23:00)
[2024-05-15 07:22] LABS: Anion Gap 5 (7-16); BUN/Creatinine Ratio 25 Ratio (12-20); Blood Urea Nitrogen 20 mg/dL (9-23); Carbon Dioxide 30.6 mMol/L (20.0-31.0); Chloride 104 mMol/L (98-107); Creatinine (Component) 0.8 mg/dL (0.6-1.3); Estimated Creatinine Clearance 111.7 mL/min (>60); Glucose 111 mg/dL (74-106); Osmolality,Calculated 283 (275-295); Potassium 3.4 mMol/L (3.4-5.1); Sodium 140 mMol/L (136-145); eGFR > 60 See Note
[2024-05-15] MEDS: PANTOPRAZOLE INJ 40 MG VIAL IVP (08:41)
[2024-05-15] MEDS: CLOPIDOGREL BISULFATE 75 MG TABLET NG (08:42)
[2024-05-15] MEDS: Furosemide 20 MG TABLET PO (08:42)
[2024-05-15] MEDS: carVEDILOL 12.5 MG TABLET NG ×2 (08:42→17:18)
[2024-05-15] MEDS: AMIODARONE HCL 200 MG TABLET PO ×2 (08:42→21:04)
[2024-05-15] MEDS: APIXABAN 2.5 MG TABLET 5 MG NG ×2 (08:42→21:04)
[2024-05-15] MEDS: amLODIPine BESYLATE 5 MG TABLET 10 MG NG (08:43)
--- NOTE | 2024-05-15 09:00 | XR_ITS ---
Examination: AP chest single view Technique: Portable AP sitting chest single view Exam date and time: May 15, 2024 0948 hrs. Comparison May 14, 2024 Indications: Difficulty breathing this week. Findings: Significant CHF with prominent enlargement cardiac contour The film is rotated LPO Right subclavian central line tip satisfactory position Endotracheal tube is not clearly depicted Prominent osteopenia Impression: Significant CHF Consider superimposed pneumonia at the lung bases Right subclavian central line tip SVC satisfactory position
--- NOTE | 2024-05-15 10:25 | PC.SS ---
SS follow up note; Patient is on 02. Patient is a ICU down grade.
--- NOTE | 2024-05-15 14:08 | PD.RESPRO ---
Documentation for date of: 05/15/24 Subjective Subjective Interval history: Patient seen today at the bedside found awake, alert. No overnight events reported. Vital signs stable at this time with adequate saturation with 3L NC. Labs at this time unremarkable. Patients I&Os show positive fluid balance, placed patient on 1500ml fluid restriction. At this present point in time will continue with BiPAP overnight and chest physiotherapy, instructed patient to get out of bed to chair with assistance. Exam Vital Signs Temp Pulse Resp BP Pulse Ox O2 Del Method O2 Flow Rate 98.0 F 67 18 131/61 H 94 L Nasal Cannula 3 05/15/24 12:00 05/15/24 13:34 05/15/24 12:00 05/15/24 13:34 05/15/24 12:00 05/15/24 12:00 05/14/24 22:21 FiO2 40 05/15/24 02:55 Narrative Exam Physical Exam: General: Awake, alert, NAD Answering questions appropriately, obese. HEENT: Normocephalic, atraumatic, mucous membranes moist. Heart: RRR, no added heart sounds, no murmurs. Lungs: Clear to auscultation with no wheezing or crackles. Bilateral decreased breath sounds noted. Abdomen: Soft, nondistended, nontender, positive bowel sounds. ?No guarding or rebound tenderness. Neurologic: Able to follow verbal commands and decreased movements noted on the left side due to previous CVA. Extremities: L>R peripheral low extremity edema. Skin: No rash or ecchymoses. Objective Labs 05/15/24 05:30 05/15/24 15:06 Labs: Laboratory Results - last 24 hr 05/14/24 05/15/24 21:02 05:30 WBC 8.6 RBC 3.97 L Hgb 10.5 L Hct 34.7 L MCV 87 MCH 26.4 MCHC 30.3 L RDW Std Deviation 57.9 H Plt Count 216 Neut % (Auto) 76 Lymph % (Auto) 12 [place] % (Auto) 8 Eos % (Auto) 4 Baso % (Auto) 0 Neut # (Auto) 6.5 Lymph # (Auto) 1.0 [place] # (Auto) 0.7 Eos # (Auto) 0.3 Baso # (Auto) 0.0 Immature Gran # (Auto) 0.03 H Absolute Nucleated RBC 0.00 Immature Gran % 0 Nucleated RBC % 0 Sodium 140 Potassium 3.4 Chloride 104 Carbon Dioxide 30.6 Anion Gap 5 L BUN 20 Creatinine 0.8 Estim Creat Clear Calc 111.7 eGFR > 60 BUN/Creatinine Ratio 25 H Glucose 111 H Calculated Osmolality 283 Calcium 9.0 Vancomycin Trough 19.3 H ABG Interpretation ABG results: 05/11/24 05/11/24 05/12/24 21:10 22:09 01:23 ABG pH Cancelled 7.37 7.33 L ABG pCO2 Cancelled 60 H 62 H ABG pO2 Cancelled 240 H D 71 L D ABG HCO3 Cancelled 35 H 32 H ABG O2 Saturation Cancelled 100 H 95 ABG Base Excess Cancelled 7 H 5 H 05/12/24 05/12/24 05/13/24 04:40 05:17 16:35 ABG pH Cancelled 7.33 L 7.42 ABG pCO2 Cancelled 63 H 51 H D ABG pO2 Cancelled 85 73 L ABG HCO3 Cancelled 33 H 33 H ABG O2 Saturation Cancelled 97 96 ABG Base Excess Cancelled 5 H 7 H Quality Measures Quality Measures none Advance care planning discussed with:: patient Assessment & Plan Assessment Current Active Medications: Generic Name Dose Route Start Last Admin Trade Name Freq PRN Reason Stop Dose Admin Acetaminophen 650 mg 05/11/24 23:27 Acetaminophen 325 Mg Tablet PO 06/10/24 23:26 Q4HR PRN PAIN SCALE 1-3 (mild Acetaminophen 650 mg 05/11/24 23:27 Acetaminophen Supp 650 Mg Supp [place] 06/10/24 23:26 Q4HR PRN PAIN SCALE 1-3 (mild Acetylcysteine 3 ml 05/12/24 11:00 05/15/24 10:42 Acetylcysteine Rt Maggie 10% 4 Ml Nebu INH 06/11/24 10:59 3 ml Q4HRRT CIPRIANO Administration Albuterol 5 mg 05/12/24 08:30 05/15/24 10:42 Albuterol Rt 2.5 Mg/0.5 Ml Nebu INH 06/11/24 08:29 5 mg Q4HRRT CIPRIANO Administration Amiodarone HCl 200 mg 05/15/24 09:00 05/15/24 08:42 Amiodarone Hcl 200 Mg Tablet PO 06/14/24 08:59 200 mg BID CIPRIANO Administration Amlodipine Besylate 10 mg 05/13/24 10:45 05/15/24 08:43 Amlodipine Besylate 5 Mg Tablet NG 06/12/24 10:44 10 mg QDAY CIPRIANO Administration Apixaban 5 mg 05/13/24 10:45 05/15/24 08:42 Apixaban 2.5 Mg Tablet NG 06/12/24 10:44 5 mg BID CIPRIANO Administration Carvedilol 12.5 mg 05/13/24 10:45 05/15/24 08:42 Carvedilol 12.5 Mg Tablet NG 06/12/24 10:44 12.5 mg BIDWM CIPRIANO Administration Clopidogrel Bisulfate 75 mg 05/13/24 10:45 05/15/24 08:42 Clopidogrel Bisulfate 75 Mg Tablet NG 06/12/24 10:44 75 mg QDAY CIPRIANO Administration Furosemide 20 mg 05/15/24 09:00 05/15/24 08:42 Furosemide 20 Mg Tablet PO 06/14/24 08:59 20 mg Q72H CIPRIANO Administration Hydralazine HCl 50 mg 05/13/24 14:00 05/15/24 13:34 Hydralazine Hcl 25 Mg Tablet NG 06/12/24 13:59 50 mg TID CIPRIANO Administration Ampicillin Sodium/Sulbactam 100 mls @ 200 mls/hr 05/12/24 12:00 05/15/24 11:38 Sodium 3 gm/ Sodium Chloride IV 05/19/24 11:59 200 mls/hr Q6HR CIPRIANO Administration Pantoprazole Sodium 40 mg 05/11/24 23:30 05/15/24 08:41 Pantoprazole Inj 40 Mg Vial IVP 06/10/24 23:29 40 mg BID CIPRIANO Administration Plan 73y/o M with PMHX of CVA with left sided residual deficits, HFpEF 50%, COPD on 3L O2, Diabetes, BPH with chronic indwelling catheter, and recent hospitalization for Acute hypoxic respiratory failure. Admitted to the ICU due to acute hypoxic respiratory failure in the setting of aspiration requiring mechanical ventilation. #Acute hypoxic respiratory failure s/p extubation #ARDS, mild #History of COPD #Obstructive sleep apnea #Obesity hypoventilation #Mucous plug Patient arrived to ED with AMS and unable to protect airway with increased work of breathing and low oxygenation, requiring patient to be intubated. CTA chest 05/11 showed negative for pulmonary artery emboli, extensive atelectasis left lung, pneumonia and/or edema in the right lung. There was evidence of a large mucous plugging in the left bronchus Possible differentials include repeat aspiration event, COPD exacerbation, mucous plugging causing left lung collapse, heart failure exacerbation Plan was to perform bronchoscopy for mucous plug but patient was too drowsy and there was difficulty reaching family for consent, later the patient self-extubated - Continue with Unasyn 3g IV q 6 hours - on Albuterol and mucomyst breathing treatments - BiPAP at night - Chest physiotherapy daily - out of bed to chair #Sepsis secondary to pneumonia #Community acquired pneumonia versus aspiration pneumonia Patient had an admission on 05/09-05/11 prior to which he had an aspiration event while chewing tobacco, was admitted to the ICU for AHRF secondary to pneumonia. He was downgraded to the floor on 05/11 and discharged back to his facility due to improvement of clinical condition and return to baseline. However he developed an acute hypoxic event within an hour after discharge, required coming back to ED and intubation. Procal was negative. Flu, COVID, RSV negative. 05/11 sputum culture negative, urine culture negative, 05/09 MRSA screen negative -Continue IV Unasyn #Acute encephalopathy- resolved #History of CVA with L sided deficits Patient presented to the ED with AMS, most likely secondary to Acute hypoxic respiratory failure. Post intubation abg did not show hypercapnia. Pt was hypoxic on arrival. CT head was negative on admission -Continue home Plavix 75 mg qday #History of HFrEF (EF 45%) #History of paroxysmal Atrial fibrillation on Anticoagulation On admission BNP 204, Left sided peripheral edema noted may be secondary to CVA deficits - on amiodarone 200 mg BID - on furosemide 20 mg q72h - on Eliquis 5 mg BID - fluid restriction 1500ml - strict I&Os #Hx of hypertension - on home amlodipine 10 mg qday - on home carvedilol 12.5 mg BID - on hydralazine 50 mg TID #Hx of Diabetes II A1c 6.0 on 04/18 - not in diabetic range currently Patient takes metformin at home - insulin sliding scale #BPH with indwelling catheter #History of penile implant Patient came with Gutiérrez catheter from SNF. According to facility staff, Gutiérrez can be changed by nursing, no special procedures needed. -Gutiérrez was replaced 05/10 when patient was in ICU last admission -Continue home tamsulosin Case discussed with my senior Dr. Raya PGY-[address] Bandar Jesus MD PGY-1 Disposition: Telemetry Fluids: None Feeding:Carb consistent Thrombo prophylaxis: Eliquis Gastric Ulcer prophylaxis: Pantoprazole 40 mg qday CODE STATUS: Full code Attending Provider Attestation/Addendum 73-year-old with multiple comorbidities including hypertension, hyperlipidemia, type 2 diabetes mellitus, CVA with left-sided residual deficits, heart failure with preserved EF with a EF 50% and COPD on 3 L supplemental oxygen, BPH with chronic indwelling Gutiérrez catheter who presents with acute hypoxic hypercapnic respiratory failure and subsequently admitted to ICU and patient noted to have left mucous plugging pending bronchoscopy however patient self extubated prior to performing of bronchoscopy. As a result, patient subsequently downgraded to telemetry and ICU team recommended aggressive Mucomyst and chest therapy. As of now, patient is currently on 3 L supplemental oxygen and denies any complaint. Will continue to monitor the patient closely on telemetry. I reviewed above note and agree with findings and plans. I have also personally examined the patient with medicine team and went over assessment and plan with medical team including international student advisor and resident physician.
[2024-05-15 15:20] LABS: Base Excess, Venous 5 (-3-3); O2 Saturation, Venous 99 % (96-97); PCO2, Venous 35 mmHg (36-56); PO2, Venous 89 mmHg (15-58); pH, Venous 7.52 (7.33-7.66)
[2024-05-15 15:50] LABS: Anion Gap 6 (7-16); BUN/Creatinine Ratio 25 Ratio (12-20); Blood Urea Nitrogen 20 mg/dL (9-23); Calcium 8.7 mg/dL (8.3-10.6); Carbon Dioxide 30.2 mMol/L (20.0-31.0); Chloride 102 mMol/L (98-107); Creatinine (Component) 0.8 mg/dL (0.6-1.3); Estimated Creatinine Clearance 111.7 mL/min (>60); Glucose 136 mg/dL (74-106); Osmolality,Calculated 280 (275-295); Potassium 3.5 mMol/L (3.4-5.1); Sodium 138 mMol/L (136-145); eGFR > 60 See Note
[2024-05-16] VITALS (28 sets, daily range): BP systolic 128–156; BP diastolic 44–79; PULSE 51–78; RESP 13–23; TEMP 36.4–36.8; O2SAT 90–100
[2024-05-16] MEDS: AMPICILLIN/SULBAC INJ 3 GM in SODIUM CHLORIDE 0.9% (P) 100 ML IV ×4 (00:41→18:23)
[2024-05-16] MEDS: ALBUTEROL RT 2.5 MG/0.5 ML NEBU 5 MG INH ×5 (02:29→22:45)
[2024-05-16] MEDS: ACETYLCYSTEINE RT SOL 10% 4 ML NEBU 3 ML INH ×5 (02:29→22:46)
[2024-05-16] MEDS: hydrALAZINE HCL 25 MG TABLET 50 MG NG ×2 (05:08→14:50)
[2024-05-16 06:04] LABS: Basophils % (Auto) 0 % (0-2.5); Eosinophils # (Auto) 0.4 Thou/mm3 (0.0-0.5); Eosinophils % (Auto) 5 % (0-10); Hematocrit 32.9 % (41.0-53.0); Hemoglobin 10.1 g/dL (13.5-16.0); Immature Granulocytes % (Auto) 0 % (0-0); Immature Granulocytes Auto 0.02 Thou/mm3 (0.00-0.00); Lymphocytes # (Auto) 1.3 Thou/mm3 (1.0-4.8); Lymphocytes % (Auto) 15 % (10-50); Mean Corpuscular HGB Conc 30.7 g/dl (31.0-37.0); Mean Corpuscular Hemoglobin 26.4 pg (25.0-35.0); Mean Corpuscular Volume 86 fL (80-100); Monocytes # (Auto) 0.7 Thou/mm3 (0.0-0.8); Monocytes % (Auto) 8 % (0-12); Neutrophils # (Auto) 5.9 Thou/mm3 (1.8-7.7); Neutrophils % (Auto) 72 % (37-80); Nucleated Red Blood Cell % 0 /100 WBC (0); Platelet Count 203 Thou/mm3 (140-440); RDW Standard Deviation 56.4 fL (35.1-43.9); Red Blood Count 3.83 Miln/mm3 (4.50-5.90); White Blood Count 8.2 Thou/mm3 (3.8-10.6)
[2024-05-16 06:17] LABS: Alanine Aminotransferase 20 U/L (10-49); Albumin/Globulin Ratio 1.2 (1.2-2.2); Alkaline Phosphatase 59 U/L (46-116); Anion Gap 5 (7-16); Aspartate Amino Transferase 16 U/L (0-34); BUN/Creatinine Ratio 27 Ratio (12-20); Bilirubin,Total 0.5 mg/dL (0.3-1.2); Blood Urea Nitrogen 19 mg/dL (9-23); Calcium 9.2 mg/dL (8.3-10.6); Carbon Dioxide 31.4 mMol/L (20.0-31.0); Chloride 104 mMol/L (98-107); Creatinine (Component) 0.7 mg/dL (0.6-1.3); Estimated Creatinine Clearance 127.6 mL/min (>60); Globulin 2.5 gm/dL (2.3-3.5); Glucose 101 mg/dL (74-106); Magnesium 1.8 mg/dL (1.6-2.6); Osmolality,Calculated 281 (275-295); Phosphorous 1.9 mg/dL (2.4-5.1); Potassium 3.2 mMol/L (3.4-5.1); Sodium 140 mMol/L (136-145); Total Protein 5.5 gm/dL (5.7-8.2); eGFR > 60 See Note
[2024-05-16] MEDS: Magnesium Sulfate 2 GM Ivpb 2 GM/50 ML BAG IV (08:09)
[2024-05-16] MEDS: NAPH,KPH MBDB 1 PACKET (1.5 GM) 2 PACKET PO (08:10)
[2024-05-16] MEDS: POTASSIUM CHLORIDE 20 mEq TABCR 40 MEQ PO (08:10)
[2024-05-16] MEDS: CLOPIDOGREL BISULFATE 75 MG TABLET NG (08:10)
[2024-05-16] MEDS: amLODIPine BESYLATE 5 MG TABLET 10 MG NG (08:10)
[2024-05-16] MEDS: APIXABAN 2.5 MG TABLET 5 MG NG (08:11)
[2024-05-16] MEDS: AMIODARONE HCL 200 MG TABLET PO (08:11)
[2024-05-16] MEDS: carVEDILOL 12.5 MG TABLET NG ×2 (08:12→18:23)
[2024-05-16] MEDS: TAMSULOSIN HCL 0.4 MG CAPSULE PO (08:12)
[2024-05-16] MEDS: PANTOPRAZOLE 40 MG TABLET PO (08:12)
--- NOTE | 2024-05-16 08:33 | PC.PT ---
PT eval received. Patient is a LTC resident in the SNF and he has been bed bound for years and is total assist with transfers. Will cancel PT evaluation. Patient is at his PLOF.
--- NOTE | 2024-05-16 09:00 | XR_ITS ---
Examination: AP chest single view TECHNIQUE: AP portable semiupright chest single view Exam date and time: May 16, 2024 0903 hours Comparison May 15, 2024 INDICATION: Shortness of breath today FINDINGS: Moderate enlargement cardiac contour with prominent vascular congestion Edema and/or pneumonia both lungs Right subclavian central line tip satisfactory position IMPRESSION: Moderate heart failure pattern Bilateral pneumonia, diffuse right lung
[2024-05-16] MEDS: Furosemide 20 MG TABLET PO (11:28)
[2024-05-16] MEDS: ACETAMINOPHEN 325 MG TABLET 650 MG PO (11:30)
--- NOTE | 2024-05-16 13:44 | ESPR_ITS ---
<Statement entered by Jon Coello MD - 05/16/24 15:57> Patient was seen and examined at bedside. We noticed that his chest x-ray showed worsening of his pulmonary edema and widening of the left lower lung field for that reason we will order for him CT scan of the chest and we gave him 1 dose of Lasix 40 mg IV as the patient seems to be overloaded. His body weight in November was 80 kg on the day of presentation he was at 93 kg. Will keep close monitoring. - Patient's plan and care discussed with my attending, Dr. Bandar Coello MD Internal Medicine PGY-2 Documentation for date of: 05/16/24 Subjective Subjective Interval history: Patient reports shortness of breath. Denies chest pain, abdominal pain. Reports that he feels about the same as yesterday. Reports chronic left sided leg pain. Exam Vital Signs Temp Pulse Resp BP Pulse Ox O2 Del Method O2 Flow Rate 98.2 F 56 L 16 142/52 H 90 L BiPAP 3 05/16/24 12:00 05/16/24 12:00 05/16/24 12:00 05/16/24 12:00 05/16/24 12:00 05/16/24 12:00 05/16/24 12:00 FiO2 40 05/16/24 12:00 Narrative Exam General: Ill appearing in no distress. Oriented x 3, normal mood and affect HEENT: Normocephalic, atraumatic, conjunctiva clear, sclera non-icteric, EOM intact, PERRL, Chest: R subclavian central line, non erythematous, small hematoma, non expanding Heart: Regular rate and rhythm, no murmur or gallop Lungs: Coarse breath sounds b/l, no wheezing Abdomen: Soft, no tenderness to palpation, non distended Extremities: No amputations or deformities, peripheral pulses intact. +1 b/l pedal edema Neurologic: Moves all extremities spontaneously, alert and oriented x3 Psychiatric: Cooperative, normal mood and affect. Objective Labs 05/17/24 05:00 05/17/24 05:00 Labs: Laboratory Results - last 24 hr 05/15/24 05/16/24 15:06 04:21 WBC 8.2 RBC 3.83 L Hgb 10.1 L Hct 32.9 L MCV 86 MCH 26.4 MCHC 30.7 L RDW Std Deviation 56.4 H Plt Count 203 Neut % (Auto) 72 Lymph % (Auto) 15 Christian % (Auto) 8 Eos % (Auto) 5 Baso % (Auto) 0 Neut # (Auto) 5.9 Lymph # (Auto) 1.3 Christian # (Auto) 0.7 Eos # (Auto) 0.4 Baso # (Auto) 0.0 Immature Gran # (Auto) 0.02 H Absolute Nucleated RBC 0.00 Immature Gran % 0 Nucleated RBC % 0 VBG pH 7.52 VBG pCO2 35 L VBG pO2 89 H VBG O2 Sat (Kellen) 99 H VBG Base Excess 5 H Sodium 138 140 Potassium 3.5 3.2 L Chloride 102 104 Carbon Dioxide 30.2 31.4 H Anion Gap 6 L 5 L BUN 20 19 Creatinine 0.8 0.7 Estim Creat Clear Calc 111.7 127.6 eGFR > 60 > 60 BUN/Creatinine Ratio 25 H 27 H Glucose 136 H 101 Calculated Osmolality 280 281 Calcium 8.7 9.2 Corrected Calcium 10.0 Phosphorus 1.9 L Magnesium 1.8 Total Bilirubin 0.5 AST 16 ALT 20 Alkaline Phosphatase 59 Total Protein 5.5 L Albumin 3.0 L Globulin 2.5 Albumin/Globulin Ratio 1.2 ABG Interpretation ABG results: 05/11/24 05/11/24 05/12/24 21:10 22:09 01:23 ABG pH Cancelled 7.37 7.33 L ABG pCO2 Cancelled 60 H 62 H ABG pO2 Cancelled 240 H D 71 L D ABG HCO3 Cancelled 35 H 32 H ABG O2 Saturation Cancelled 100 H 95 ABG Base Excess Cancelled 7 H 5 H VBG pH VBG pCO2 VBG pO2 VBG Base Excess 05/12/24 05/12/24 05/13/24 04:40 05:17 16:35 ABG pH Cancelled 7.33 L 7.42 ABG pCO2 Cancelled 63 H 51 H D ABG pO2 Cancelled 85 73 L ABG HCO3 Cancelled 33 H 33 H ABG O2 Saturation Cancelled 97 96 ABG Base Excess Cancelled 5 H 7 H VBG pH VBG pCO2 VBG pO2 VBG Base Excess 05/15/24 15:06 ABG pH ABG pCO2 ABG pO2 ABG HCO3 ABG O2 Saturation ABG Base Excess VBG pH 7.52 VBG pCO2 35 L VBG pO2 89 H VBG Base Excess 5 H Quality Measures Quality Measures VTE prophylaxis and none Advance care planning discussed with:: patient Assessment & Plan Assessment Current Active Medications: Generic Name Dose Route Start Last Admin Trade Name Freq PRN Reason Stop Dose Admin Acetaminophen 650 mg 05/11/24 23:27 05/16/24 11:30 Acetaminophen 325 Mg Tablet PO 06/10/24 23:26 650 mg Q4HR PRN Administration PAIN SCALE 1-3 (mild Acetaminophen 650 mg 05/11/24 23:27 Acetaminophen Supp 650 Mg Supp MI 06/10/24 23:26 Q4HR PRN PAIN SCALE 1-3 (mild Acetylcysteine 3 ml 05/12/24 11:00 05/16/24 10:54 Acetylcysteine Rt Maggie 10% 4 Ml Nebu INH 06/11/24 10:59 3 ml Q4HRRT CIPRIANO Administration Albuterol 5 mg 05/12/24 08:30 05/16/24 10:55 Albuterol Rt 2.5 Mg/0.5 Ml Nebu INH 06/11/24 08:29 5 mg Q4HRRT CIPRIANO Administration Amiodarone HCl 200 mg 05/15/24 09:00 05/16/24 08:11 Amiodarone Hcl 200 Mg Tablet PO 06/14/24 08:59 200 mg BID CIPRIANO Administration Amlodipine Besylate 10 mg 05/13/24 10:45 05/16/24 08:10 Amlodipine Besylate 5 Mg Tablet NG 06/12/24 10:44 10 mg QDAY CIPRIANO Administration Apixaban 5 mg 05/13/24 10:45 05/16/24 08:11 Apixaban 2.5 Mg Tablet NG 06/12/24 10:44 5 mg BID CIPRIANO Administration Carvedilol 12.5 mg 05/13/24 10:45 05/16/24 08:12 Carvedilol 12.5 Mg Tablet NG 06/12/24 10:44 12.5 mg BIDWM CIPRIANO Administration Clopidogrel Bisulfate 75 mg 05/13/24 10:45 05/16/24 08:10 Clopidogrel Bisulfate 75 Mg Tablet NG 06/12/24 10:44 75 mg QDAY CIPRIANO Administration Furosemide 20 mg 05/16/24 10:30 05/16/24 11:28 Furosemide 20 Mg Tablet PO 06/15/24 10:29 20 mg QAM CIPRIANO Administration Hydralazine HCl 50 mg 05/13/24 14:00 05/16/24 05:08 Hydralazine Hcl 25 Mg Tablet NG 06/12/24 13:59 50 mg TID CIPRIANO Administration Ampicillin Sodium/Sulbactam 100 mls @ 200 mls/hr 05/12/24 12:00 05/16/24 12:00 Sodium 3 gm/ Sodium Chloride IV 05/19/24 11:59 200 mls/hr Q6HR CIPRIANO Administration Pantoprazole Sodium 40 mg 05/16/24 09:00 05/16/24 08:12 Pantoprazole 40 Mg Tablet PO 06/15/24 08:59 40 mg QDAY CIPRIANO Administration Tamsulosin HCl 0.4 mg 05/16/24 09:00 05/16/24 08:12 Tamsulosin Hcl 0.4 Mg Capsule PO 06/15/24 08:59 0.4 mg QDAY CIPRIANO Administration Plan Plan 73y/o M with PMHX of CVA with left sided residual deficits, HFpEF 50%, COPD on 3L O2, Diabetes, BPH with chronic indwelling catheter, and recent hospitalization for Acute hypoxic respiratory failure. Admitted to the ICU due to acute hypoxic respiratory failure in the setting of aspiration requiring mechanical ventilation->self extubated now tolerating 3L O2 NC. #Acute hypoxic respiratory failure s/p extubation #ARDS, mild #History of COPD #Obstructive sleep apnea #Obesity hypoventilation #Mucous plug Patient arrived to ED with AMS and unable to protect airway with increased work of breathing and low oxygenation, requiring patient to be intubated. CTA chest 05/11 showed negative for pulmonary artery emboli, extensive atelectasis left lung, pneumonia and/or edema in the right lung. There was evidence of a large mucous plugging in the left bronchus Possible differentials include repeat aspiration event, COPD exacerbation, mucous plugging causing left lung collapse, heart failure exacerbation Plan was to perform bronchoscopy for mucous plug but patient was too drowsy and there was difficulty reaching family for consent, later the patient self- extubated - Continue with Unasyn 3g IV q 6 hours - on Albuterol and mucomyst breathing treatments - BiPAP at night - Chest physiotherapy daily - out of bed to chair #History of HFrEF (EF 45%) #History of paroxysmal Atrial fibrillation on Anticoagulation On admission BNP 204, Left sided peripheral edema noted may be secondary to CVA deficits, worsening chest x-ray 05/16 - on amiodarone 200 mg BID - on furosemide 20 mg QD->increased from q72Hr - on Eliquis 5 mg BID - fluid restriction 1500ml - strict I&Os #Sepsis secondary to pneumonia #Community acquired pneumonia versus aspiration pneumonia Patient had an admission on 05/09-05/11 prior to which he had an aspiration event while chewing tobacco, was admitted to the ICU for AHRF secondary to pneumonia. He was downgraded to the floor on 05/11 and discharged back to his facility due to improvement of clinical condition and return to baseline. However he developed an acute hypoxic event within an hour after discharge, required coming back to ED and intubation. Procal was negative. Flu, COVID, RSV negative. 05/11 sputum culture negative, urine culture negative, 05/09 MRSA screen negative -Continue IV Unasyn #Acute encephalopathy- resolved #History of CVA with L sided deficits Patient presented to the ED with AMS, most likely secondary to Acute hypoxic respiratory failure. Post intubation abg did not show hypercapnia. Pt was hypoxic on arrival. CT head was negative on admission -Continue home Plavix 75 mg qday #Hx of hypertension - on home amlodipine 10 mg qday - on home carvedilol 12.5 mg BID - on hydralazine 50 mg TID #Hx of Diabetes II A1c 6.0 on 04/18 - not in diabetic range currently Patient takes metformin at home - insulin sliding scale #BPH with indwelling catheter #History of penile implant Patient came with Gutiérrez catheter from SNF. According to facility staff, Gutiérrez can be changed by nursing, no special procedures needed. -Gutiérrez was replaced 05/10 when patient was in ICU last admission -Continue home tamsulosin Disposition: Telemetry Fluids: None Feeding:Carb consistent Thrombo prophylaxis: Eliquis Gastric Ulcer prophylaxis: Pantoprazole 40 mg qday CODE STATUS: Full code Lines: Central line(05/12-) Poor peripheral access, will reassess removing central line tomorrow Case discussed with my senior Dr. Coello PGY-[address] Bandar Lynne PGY1 Attending Provider Attestation/Addendum 73-year-old with multiple comorbidities including hypertension, hyperlipidemia, type 2 diabetes mellitus, CVA with left-sided residual deficits, heart failure with preserved EF with a EF 50% and COPD on 3 L supplemental oxygen, BPH with chronic indwelling Gutiérrez catheter who presents with acute hypoxic hypercapnic respiratory failure and subsequently admitted to ICU and patient noted to have left mucous plugging pending bronchoscopy however patient self extubated prior to performing of bronchoscopy. As a result, patient subsequently downgraded to telemetry and ICU team recommended aggressive Mucomyst and chest therapy. As of now, patient is currently on 3 L supplemental oxygen and denies any complaint. Will continue to monitor the patient closely on telemetry. I reviewed above note and agree with findings and plans. I have also personally examined the patient with medicine team and went over assessment and plan with medical team including internal medicine physician assistant and resident physician.
--- NOTE | 2024-05-16 14:17 | PC.SS ---
Rounding Note: Plan is to diuresis patient. Possible d/c tomorrow.
--- NOTE | 2024-05-16 14:39 | XR_ITS ---
Examination: CT chest, without intravenous contrast. Sagittal and coronal 2-D reconstructions. Exam date and time: May 16, 2024 1728 hrs. Comparison May 12, 2024 Indications: Acute hypoxic respiratory failure shortness of breath this week CTDI:vol (mGy) 20.4 DLP: (mGycm) 1296 Technique: Multiple 3.0 mm axial sections of the chest to been obtained. Bone and lung density settings are obtained. Sagittal and coronal 2-D reconstructions have been obtained. Low dose protocols were performed. One or more of the following dose reduction techniques were used; automated exposure control, adjustment of the mA and/or KV according to patient size, use of iterative reconstruction technique. Findings: Heavy thoracic aortic calcification Moderate calcification left anterior descending coronary artery Pericardial effusion, posteriorly measuring up to 18 mm Moderate vascular congestion Extensive bilateral lung opacity consistent with pneumonia Severe compression main left bronchus and most of the left bronchial tree with atelectasis left lung Mild bilateral pleural disease No visualized liver or splenic lesion Hyperdense gallbladder No pancreatic mass Suspicious for 17 mm upper pole right renal calculus Impression: Mild heart failure Extensive bilateral pneumonia Significant left lung atelectasis with significant narrowing of the entire left bronchial tree, consider bronchoscopy follow-up
[2024-05-16] MEDS: FUROSEMIDE INJ 10 MG/ML 4ML VIAL 40 MG IVP (16:24)
[2024-05-16] MEDS: hydrALAZINE HCL 25 MG TABLET 50 MG PO (21:13)
[2024-05-16] MEDS: APIXABAN 2.5 MG TABLET 5 MG PO (21:14)
[2024-05-17] VITALS (18 sets, daily range): BP systolic 126–151; BP diastolic 54–79; PULSE 49–68; RESP 17–22; TEMP 36.2–36.6; O2SAT 90–99; BMI 40.1
[2024-05-17] MEDS: ALBUTEROL RT 2.5 MG/0.5 ML NEBU 5 MG INH (02:23)
[2024-05-17] MEDS: ACETYLCYSTEINE RT SOL 10% 4 ML NEBU 3 ML INH (02:23)
--- NOTE | 2024-05-17 05:44 | PC.NURSE ---
Pt has no IV access. Pt refused new IV access, Dr. Olguin and Dr. Xavier were made aware and talked to pt at bedside. Pt still refused new IV placement. Okay per Dr. Xavier to hold antibiotic dose.
[2024-05-17] MEDS: hydrALAZINE HCL 25 MG TABLET 50 MG PO ×3 (05:48→21:11)
[2024-05-17 06:06] LABS: Basophils % (Auto) 0 % (0-2.5); Eosinophils # (Auto) 0.4 Thou/mm3 (0.0-0.5); Eosinophils % (Auto) 5 % (0-10); Hematocrit 31.1 % (41.0-53.0); Hemoglobin 9.7 g/dL (13.5-16.0); Immature Granulocytes % (Auto) 0 % (0-0); Immature Granulocytes Auto 0.02 Thou/mm3 (0.00-0.00); Lymphocytes # (Auto) 1.1 Thou/mm3 (1.0-4.8); Lymphocytes % (Auto) 15 % (10-50); Mean Corpuscular HGB Conc 31.2 g/dl (31.0-37.0); Mean Corpuscular Hemoglobin 26.6 pg (25.0-35.0); Mean Corpuscular Volume 85 fL (80-100); Monocytes # (Auto) 0.7 Thou/mm3 (0.0-0.8); Monocytes % (Auto) 9 % (0-12); Neutrophils # (Auto) 5.4 Thou/mm3 (1.8-7.7); Neutrophils % (Auto) 71 % (37-80); Nucleated Red Blood Cell % 0 /100 WBC (0); Platelet Count 168 Thou/mm3 (140-440); RDW Standard Deviation 56.2 fL (35.1-43.9); Red Blood Count 3.64 Miln/mm3 (4.50-5.90); White Blood Count 7.6 Thou/mm3 (3.8-10.6)
[2024-05-17 06:26] LABS: Alanine Aminotransferase 22 U/L (10-49); Albumin, Serum 2.9 gm/dL (3.4-4.8); Albumin/Globulin Ratio 1.4 (1.2-2.2); Alkaline Phosphatase 54 U/L (46-116); Anion Gap 7 (7-16); Aspartate Amino Transferase 13 U/L (0-34); BUN/Creatinine Ratio 23 Ratio (12-20); Bilirubin,Total 0.4 mg/dL (0.3-1.2); Blood Urea Nitrogen 16 mg/dL (9-23); Calcium 7.7 mg/dL (8.3-10.6); Calcium (Corrected) 8.6 mg/dL (8.5-10.1); Carbon Dioxide 30.1 mMol/L (20.0-31.0); Chloride 106 mMol/L (98-107); Creatinine (Component) 0.7 mg/dL (0.6-1.3); Estimated Creatinine Clearance 127.6 mL/min (>60); Globulin 2.1 gm/dL (2.3-3.5); Glucose 101 mg/dL (74-106); Magnesium 1.6 mg/dL (1.6-2.6); Osmolality,Calculated 286 (275-295); Phosphorous 1.8 mg/dL (2.4-5.1); Potassium 2.8 mMol/L (3.4-5.1); Sodium 143 mMol/L (136-145); eGFR > 60 See Note
[2024-05-17] MEDS: AMPICILLIN/SULBAC INJ 3 GM in SODIUM CHLORIDE 0.9% (P) 100 ML IV (06:53)
--- NOTE | 2024-05-17 08:29 | XR_ITS ---
Examination: AP chest single view TECHNIQUE: AP portable semiupright chest single view Exam date and time: May 17, 2024 0924 hours Comparison May 16, 2024 INDICATIONS: Onset shortness of breath today. FINDINGS: Moderate heart failure pattern The film is rotated severely LPO Enlarged cardiac contour with vascular congestion and perihilar edema IMPRESSION: Moderate heart failure Consider superimposed pneumonia at the lung bases
[2024-05-17] MEDS: amLODIPine BESYLATE 5 MG TABLET 10 MG NG (08:32)
[2024-05-17] MEDS: CLOPIDOGREL BISULFATE 75 MG TABLET NG (08:32)
[2024-05-17] MEDS: TAMSULOSIN HCL 0.4 MG CAPSULE PO (08:32)
[2024-05-17] MEDS: carVEDILOL 12.5 MG TABLET NG (08:32)
[2024-05-17] MEDS: APIXABAN 2.5 MG TABLET 5 MG PO ×2 (08:32→21:10)
[2024-05-17] MEDS: FUROSEMIDE INJ 10 MG/ML 4ML VIAL 40 MG IVP (08:33)
[2024-05-17] MEDS: PANTOPRAZOLE 40 MG TABLET PO (08:33)
[2024-05-17] MEDS: AMIODARONE HCL 200 MG TABLET PO (08:33)
[2024-05-17] MEDS: Magnesium Sulfate 4 GM Ivpb 4 GM/50 ML BAG IV (08:34)
[2024-05-17] MEDS: POTASSIUM CHLORIDE 20 mEq TABCR 40 MEQ PO (08:37)
[2024-05-17] MEDS: POTASSIUM CHL 10 mEq IVPB 10 MEQ/100 ML BAG 100 MEQ IV ×4 (08:57→13:29)
[2024-05-17] MEDS: SOD PHOS ADDITIVE 15 MMOL in SODIUM CHLORIDE 0.9% 250 ML 250 ML 62.5 MMOL IV (08:59)
--- NOTE | 2024-05-17 09:14 | PD.RESPRO ---
Documentation for date of: 05/17/24 Subjective Subjective Interval history: Pt reports SOB that is unchanged from the last few days. Overnight patient only tolerated 2 hour of Bipap. He states that it does not fit well and over the last few days he has put up with it but he doesn't want to anymore. He states at home he is only on Nasal cannula overnight. Exam Vital Signs Temp Pulse Resp BP Pulse Ox O2 Del Method O2 Flow Rate 97.7 F 65 20 151/61 H 90 L Nasal Cannula 4 05/17/24 04:00 05/17/24 08:33 05/17/24 07:00 05/17/24 08:33 05/17/24 07:00 05/17/24 04:00 05/17/24 07:00 FiO2 40 05/16/24 23:08 Narrative Exam General: Ill appearing in no distress. Oriented x 3, HEENT: Normocephalic, atraumatic, conjunctiva clear, sclera non-icteric, EOM intact, PERRL, Chest: R subclavian central line, non erythematous, small hematoma, non expanding Heart: Regular rate and rhythm, no murmur or gallop Lungs: Coarse breath sounds b/l, no wheezing Abdomen: Soft, no tenderness to palpation, non distended Extremities: No amputations or deformities, peripheral pulses intact. LLE +2 edema Neurologic: Moves all extremities spontaneously, alert and oriented x3 Psychiatric: Cooperative, normal mood and affect. Objective Labs 05/17/24 05:00 05/17/24 05:00 Labs: Laboratory Results - last 24 hr 05/17/24 05:00 WBC 7.6 RBC 3.64 L Hgb 9.7 L Hct 31.1 L MCV 85 MCH 26.6 MCHC 31.2 RDW Std Deviation 56.2 H Plt Count 168 D Neut % (Auto) 71 Lymph % (Auto) 15 Franklin % (Auto) 9 Eos % (Auto) 5 Baso % (Auto) 0 Neut # (Auto) 5.4 Lymph # (Auto) 1.1 Franklin # (Auto) 0.7 Eos # (Auto) 0.4 Baso # (Auto) 0.0 Immature Gran # (Auto) 0.02 H Absolute Nucleated RBC 0.00 Immature Gran % 0 Nucleated RBC % 0 Sodium 143 Potassium 2.8 L Chloride 106 Carbon Dioxide 30.1 Anion Gap 7 BUN 16 Creatinine 0.7 Estim Creat Clear Calc 127.6 eGFR > 60 BUN/Creatinine Ratio 23 H Glucose 101 Calculated Osmolality 286 Calcium 7.7 L D Corrected Calcium 8.6 Phosphorus 1.8 L Magnesium 1.6 Total Bilirubin 0.4 AST 13 ALT 22 Alkaline Phosphatase 54 Total Protein 5.0 L Albumin 2.9 L Globulin 2.1 L Albumin/Globulin Ratio 1.4 ABG Interpretation ABG results: 05/11/24 05/11/24 05/12/24 21:10 22:09 01:23 ABG pH Cancelled 7.37 7.33 L ABG pCO2 Cancelled 60 H 62 H ABG pO2 Cancelled 240 H D 71 L D ABG HCO3 Cancelled 35 H 32 H ABG O2 Saturation Cancelled 100 H 95 ABG Base Excess Cancelled 7 H 5 H VBG pH VBG pCO2 VBG pO2 VBG Base Excess 05/12/24 05/12/24 05/13/24 04:40 05:17 16:35 ABG pH Cancelled 7.33 L 7.42 ABG pCO2 Cancelled 63 H 51 H D ABG pO2 Cancelled 85 73 L ABG HCO3 Cancelled 33 H 33 H ABG O2 Saturation Cancelled 97 96 ABG Base Excess Cancelled 5 H 7 H VBG pH VBG pCO2 VBG pO2 VBG Base Excess 05/15/24 15:06 ABG pH ABG pCO2 ABG pO2 ABG HCO3 ABG O2 Saturation ABG Base Excess VBG pH 7.52 VBG pCO2 35 L VBG pO2 89 H VBG Base Excess 5 H Quality Measures Quality Measures VTE prophylaxis and none Advance care planning discussed with:: patient Assessment & Plan Assessment Current Active Medications: Generic Name Dose Route Start Last Admin Trade Name Freq PRN Reason Stop Dose Admin Acetaminophen 650 mg 05/11/24 23:27 05/16/24 11:30 Acetaminophen 325 Mg Tablet PO 06/10/24 23:26 650 mg Q4HR PRN Administration PAIN SCALE 1-3 (mild Acetaminophen 650 mg 05/11/24 23:27 Acetaminophen Supp 650 Mg Supp MI 06/10/24 23:26 Q4HR PRN PAIN SCALE 1-3 (mild Acetylcysteine 3 ml 05/12/24 11:00 05/17/24 06:59 Acetylcysteine Rt Maggie 10% 4 Ml Nebu INH 06/11/24 10:59 Not Given Q4HRRT CIPRIANO Albuterol 5 mg 05/12/24 08:30 05/17/24 07:00 Albuterol Rt 2.5 Mg/0.5 Ml Nebu INH 06/11/24 08:29 Not Given Q4HRRT CIPRIANO Amiodarone HCl 200 mg 05/15/24 09:00 05/17/24 08:33 Amiodarone Hcl 200 Mg Tablet PO 06/14/24 08:59 200 mg BID CIPRIANO Administration Amlodipine Besylate 10 mg 05/13/24 10:45 05/17/24 08:32 Amlodipine Besylate 5 Mg Tablet NG 06/12/24 10:44 10 mg QDAY CIPRIANO Administration Apixaban 5 mg 05/16/24 21:00 05/17/24 08:32 Apixaban 2.5 Mg Tablet PO 06/15/24 20:59 5 mg BID CIPRIANO Administration Carvedilol 12.5 mg 05/13/24 10:45 05/17/24 08:32 Carvedilol 12.5 Mg Tablet NG 06/12/24 10:44 12.5 mg BIDWM CIPRIANO Administration Clopidogrel Bisulfate 75 mg 05/13/24 10:45 05/17/24 08:32 Clopidogrel Bisulfate 75 Mg Tablet NG 06/12/24 10:44 75 mg QDAY CIPRIANO Administration Furosemide 40 mg 05/16/24 15:30 05/17/24 08:33 Furosemide Inj 10 Mg/Ml 4ml Vial IVP 06/15/24 15:29 40 mg QDAY CIPRIANO Administration Hydralazine HCl 50 mg 05/16/24 22:00 05/17/24 05:48 Hydralazine Hcl 25 Mg Tablet PO 06/15/24 21:59 50 mg TID CIPRIANO Administration Ampicillin Sodium/Sulbactam 100 mls @ 200 mls/hr 05/12/24 12:00 05/17/24 06:53 Sodium 3 gm/ Sodium Chloride IV 05/19/24 11:59 200 mls/hr Q6HR CIPRIANO Administration Magnesium Sulfate 4 gm in 50 mls @ 12.5 mls/hr 05/17/24 07:47 05/17/24 08:34 Magnesium Sulfate Ivpb IV 05/17/24 11:46 12.5 mls/hr X1 ONE Administration Sodium Phosphate 15 mmol/ 255 mls @ 62.5 mls/hr 05/17/24 08:00 05/17/24 08:59 Sodium Chloride IV 05/17/24 12:04 62.5 mls/hr X1 ONE Administration Potassium Chloride 10 meq in 100 mls @ 100 mls/hr 05/17/24 08:31 05/17/24 08:57 Kcl Ivpb IV 05/17/24 12:30 100 mls/hr Q1H CIPRIANO Administration Pantoprazole Sodium 40 mg 05/16/24 09:00 05/17/24 08:33 Pantoprazole 40 Mg Tablet PO 06/15/24 08:59 40 mg QDAY CIPRIANO Administration Tamsulosin HCl 0.4 mg 05/16/24 09:00 05/17/24 08:32 Tamsulosin Hcl 0.4 Mg Capsule PO 06/15/24 08:59 0.4 mg QDAY CIPRIANO Administration Plan Plan 73y/o M with PMHX of CVA with left sided residual deficits, HFpEF 50%, COPD on 3L O2, Diabetes, BPH with chronic indwelling catheter, and recent hospitalization for Acute hypoxic respiratory failure. Admitted to the ICU due to acute hypoxic respiratory failure in the setting of aspiration requiring mechanical ventilation->self extubated now tolerating 3L O2 NC->Pt now DNR/DNI requests pursuing comfort measures #Acute hypoxic respiratory failure s/p extubation #ARDS, mild #History of COPD #Obstructive sleep apnea #Obesity hypoventilation #Mucous plug Patient arrived to ED with AMS and unable to protect airway with increased work of breathing and low oxygenation, requiring patient to be intubated. CTA chest 05/11 showed negative for pulmonary artery emboli, extensive atelectasis left lung, pneumonia and/or edema in the right lung. There was evidence of a large mucous plugging in the left bronchus Possible differentials include repeat aspiration event, COPD exacerbation, mucous plugging causing left lung collapse, heart failure exacerbation Plan was to perform bronchoscopy for mucous plug but patient was too drowsy and there was difficulty reaching family for consent, later the patient self-extubated - D/C'd Unasyn per patient request for comfort measures - on Albuterol and mucomyst breathing treatments PRN - BiPAP at night PRN - Chest physiotherapy daily PRN - out of bed to chair #History of HFrEF (EF 45%) #History of paroxysmal Atrial fibrillation on Anticoagulation On admission BNP 204, Left sided peripheral edema noted may be secondary to CVA deficits, worsening chest x-ray 05/16 - on amiodarone 200 mg BID PO - on Lasix 40mg IV QD - on Eliquis 5 mg BID PO - fluid restriction 1500ml - strict I&Os #Sepsis secondary to pneumonia #Community acquired pneumonia versus aspiration pneumonia Patient had an admission on 05/09-05/11 prior to which he had an aspiration event while chewing tobacco, was admitted to the ICU for AHRF secondary to pneumonia. He was downgraded to the floor on 05/11 and discharged back to his facility due to improvement of clinical condition and return to baseline. However he developed an acute hypoxic event within an hour after discharge, required coming back to ED and intubation. Procal was negative. Flu, COVID, RSV negative. 05/11 sputum culture negative, urine culture negative, 05/[address] chest showed severe compression main left bronchus and most the left bronchial tree Patient was on Unasyn but requests to discontinue We also considered bronchoscopy but will defer due to decision to pursue comfort measures #Acute encephalopathy- resolved #History of CVA with L sided deficits Patient presented to the ED with AMS, most likely secondary to Acute hypoxic respiratory failure. Post intubation abg did not show hypercapnia. Pt was hypoxic on arrival. CT head was negative on admission -Continue home Plavix 75 mg qday #Hx of hypertension - on home amlodipine 10 mg qday - on home carvedilol 12.5 mg BID - on hydralazine 50 mg TID #Hx of Diabetes II A1c 6.0 on 04/18 - not in diabetic range currently Patient takes metformin at home - insulin sliding scale #BPH with indwelling catheter #History of penile implant Patient came with Gutiérrez catheter from SNF. According to facility staff, Gutiérrez can be changed by nursing, no special procedures needed. -Gutiérrez was replaced 05/10 when patient was in ICU last admission -Continue home tamsulosin Disposition: Telemetry Fluids: None Feeding:Carb consistent Thrombo prophylaxis: Eliquis 5mg BID Gastric Ulcer prophylaxis: Pantoprazole 40 mg qday CODE STATUS: Full code Lines: Central line(05/12-) Poor peripheral access, will reassess removing central line tomorrow Case discussed with my senior Dr. Raya PGY-[address] Bandar Lynne PGY1 Attending Provider Attestation/Addendum 73-year-old with multiple comorbidities including hypertension, hyperlipidemia, type 2 diabetes mellitus, CVA with left-sided residual deficits, heart failure with preserved EF with a EF 50% and COPD on 3 L supplemental oxygen, BPH with chronic indwelling Gutiérrez catheter who presents with acute hypoxic hypercapnic respiratory failure and subsequently admitted to ICU and patient noted to have left mucous plugging pending bronchoscopy however patient self extubated prior to performing of bronchoscopy. As a result, patient subsequently downgraded to telemetry and ICU team recommended aggressive Mucomyst and chest therapy. As of now, patient is currently on 3 L supplemental oxygen and denies any complaint. Will continue to monitor the patient closely on telemetry. I reviewed above note and agree with findings and plans. I have also personally examined the patient with medicine team and went over assessment and plan with medical team including international account representative and resident physician.
--- NOTE | 2024-05-17 11:15 | PC.NURSE ---
at bedside had discussion with pt who is GCS 15 pt decided to be DNR code
--- NOTE | 2024-05-17 11:20 | PC.SS ---
RETURNED GOODS RECEIVING CLERK, bedside nurse and residential team present as attending completed POLST form with the patient. Patient's code status has been transitioned to DNR. Patient's GCS: 15. Copy placed in the patient's chart, original provided to the patient.
--- NOTE | 2024-05-17 11:23 | EVENTNT_ITS ---
<Statement entered by Shahram Portillo MD - 05/22/24 12:44> I reviewed above note and agree with findings and plans. I have also personally examined the patient with medicine team and went over assessment and plan with medical team including editing intern and resident physician. Documentation for date of: 05/17/24 Event Note Event Note: Patient was seen at bedside. We had discussion about patient's goals of care. Patient states that he feels short of breath but he refused to place BiPAP. Patient states that he no longer wants to be full code. Patient states that he does not want chest compressions or to be intubated. Patient states he also does not want any IV antibiotics and wants to pursue comfort care measures. At this time patient was alert and oriented to name, birthday, place, situation. Jonatan, rn social services and Gabrielle nurse were also present in the room during this discussion. We also discussed pursuing hospice care if he does not improve within the next few days and patient was in agreement. Patient lives in subacute facility. Dr. Portillo was present during this conversation Remy Lynne DO PGY1 Internal Medicine I discussed with and supervised the editing intern physician who took care of this patient. I personally saw and examined the patient and discussed the assessment and plan with the entire medicine team, including my attending Dr. Portillo , I agree with the assessment and plan as documented above. MD Elver PGY2 73-year-old with multiple comorbidities including hypertension, hyperlipidemia, type 2 diabetes mellitus, CVA with left-sided residual deficits, heart failure with preserved EF with a EF 50% and COPD on 3 L supplemental oxygen, BPH with chronic indwelling Gutiérrez catheter who presents with acute hypoxic hypercapnic respiratory failure and subsequently admitted to ICU and patient noted to have left mucous plugging pending bronchoscopy however patient self extubated prior to performing of bronchoscopy. As a result, patient subsequently downgraded to telemetry and ICU team recommended aggressive Mucomyst and chest therapy. As of now, patient is currently on 3 L supplemental oxygen and denies any complaint. Will continue to monitor the patient closely on telemetry. Currently, patient is alert and oriented to name, date of , place and situation. Discussed goals of care with patient and stated that he does not want to be intubated or resuscitated. He understands that if his heart or his breathing stops that he would pass away. He understands and stated that he wants to be DNR/DNI and potentially be discharged to SNF with hospice. Will respect his decision and proceed with DNR/DNI status. I reviewed above note and agree with findings and plans. I have also personally examined the patient with medicine team and went over assessment and plan with medical team including editing intern and resident physician.
[2024-05-17] MEDS: ACETAMINOPHEN 325 MG TABLET 650 MG PO (17:02)
[2024-05-17] MEDS: carVEDILOL 12.5 MG TABLET PO (17:02)
[2024-05-17] MEDS: HYDROcodone/APAP 5/325 TABLET 1 TAB PO (21:14)
[2024-05-18] VITALS (10 sets, daily range): BP systolic 140–155; BP diastolic 48–68; PULSE 52–61; RESP 14–20; TEMP 36.1–36.7; O2SAT 93–99
[2024-05-18] MEDS: HYDROcodone/APAP 5/325 TABLET 1 TAB PO (04:31)
[2024-05-18] MEDS: hydrALAZINE HCL 25 MG TABLET 50 MG PO ×2 (05:23→13:13)
[2024-05-18 05:44] LABS: Basophils % (Auto) 0 % (0-2.5); Eosinophils # (Auto) 0.6 Thou/mm3 (0.0-0.5); Eosinophils % (Auto) 7 % (0-10); Hemoglobin 10.8 g/dL (13.5-16.0); Immature Granulocytes % (Auto) 1 % (0-0); Immature Granulocytes Auto 0.04 Thou/mm3 (0.00-0.00); Lymphocytes # (Auto) 1.3 Thou/mm3 (1.0-4.8); Lymphocytes % (Auto) 16 % (10-50); Mean Corpuscular HGB Conc 30.9 g/dl (31.0-37.0); Mean Corpuscular Hemoglobin 26.7 pg (25.0-35.0); Mean Corpuscular Volume 87 fL (80-100); Monocytes # (Auto) 0.7 Thou/mm3 (0.0-0.8); Monocytes % (Auto) 9 % (0-12); Neutrophils # (Auto) 5.5 Thou/mm3 (1.8-7.7); Neutrophils % (Auto) 68 % (37-80); Nucleated Red Blood Cell % 0 /100 WBC (0); Platelet Count 197 Thou/mm3 (140-440); RDW Standard Deviation 57.8 fL (35.1-43.9); Red Blood Count 4.04 Miln/mm3 (4.50-5.90); White Blood Count 8.1 Thou/mm3 (3.8-10.6)
[2024-05-18 06:42] LABS: Alanine Aminotransferase 24 U/L (10-49); Albumin, Serum 3.4 gm/dL (3.4-4.8); Albumin/Globulin Ratio 1.4 (1.2-2.2); Alkaline Phosphatase 72 U/L (46-116); Anion Gap 6 (7-16); Aspartate Amino Transferase 15 U/L (0-34); BUN/Creatinine Ratio 18 Ratio (12-20); Bilirubin,Total 0.5 mg/dL (0.3-1.2); Blood Urea Nitrogen 11 mg/dL (9-23); Calcium 8.7 mg/dL (8.3-10.6); Calcium (Corrected) 9.2 mg/dL (8.5-10.1); Carbon Dioxide 31.2 mMol/L (20.0-31.0); Chloride 102 mMol/L (98-107); Creatinine (Component) 0.6 mg/dL (0.6-1.3); Estimated Creatinine Clearance 148.1 mL/min (>60); Globulin 2.4 gm/dL (2.3-3.5); Glucose 95 mg/dL (74-106); Osmolality,Calculated 276 (275-295); Phosphorous 1.8 mg/dL (2.4-5.1); Potassium 3.5 mMol/L (3.4-5.1); Sodium 139 mMol/L (136-145); Total Protein 5.8 gm/dL (5.7-8.2); eGFR > 60 See Note
--- NOTE | 2024-05-18 07:41 | XR_ITS ---
Examination: AP chest single view Technique one AP portable semiupright chest single view Exam date and time: May 18, 2024 0830 hours Comparison May 17, 2024 INDICATIONS: Shortness of breath today. FINDINGS: Again noted enlarged cardiac contour with prominent vascular congestion Significant bilateral lung opacity consistent with pneumonia diffusely in the right lung Right subclavian central line tip SVC satisfactory position IMPRESSION: Mild heart failure Bilateral pneumonia, significant in the right lung
[2024-05-18] MEDS: APIXABAN 2.5 MG TABLET 5 MG PO (09:49)
[2024-05-18] MEDS: CLOPIDOGREL BISULFATE 75 MG TABLET PO (09:49)
[2024-05-18] MEDS: TAMSULOSIN HCL 0.4 MG CAPSULE PO (09:49)
[2024-05-18] MEDS: AMOXICILLIN/POT CLAV 875 TABLET 1 TAB PO (09:50)
[2024-05-18] MEDS: PANTOPRAZOLE 40 MG TABLET PO (09:50)
[2024-05-18] MEDS: FUROSEMIDE INJ 10 MG/ML 4ML VIAL 40 MG IVP (09:50)
[2024-05-18] MEDS: NAPH,KPH MBDB 1 PACKET (1.5 GM) 2 PACKET PO (09:53)
--- NOTE | 2024-05-18 10:56 | PC.SS ---
MARKETING PROGRAM MANAGER notified by attending that the patient will be transitioned to hospice services. MARKETING PROGRAM MANAGER to provide update to [facility].
--- NOTE | 2024-05-18 11:17 | PC.SS ---
[facility] contracted with [facility]. MISSILE INSPECTOR submitted hospice referral on [facility]. Pending results. Updated clinicals submitted to [facility].
--- NOTE | 2024-05-18 12:11 | ESDS_ITS ---
<Statement entered by Jon Coello MD - 05/18/24 17:32> I have seen and examined the patient at bedside and I agree on the assessment and discharge plan. Patient was seen and examined at bedside. Patient was found to have collapsed left lung. Bronchoscopy was considered during his intubation in the ICU however the patient extubated. Patient was saturating well on 3 L of oxygen and telemetry. With BiPAP overnight. Chest x-ray repeat showed worsening of his collapsed lung. Chest CT scan was ordered and showed stricture of the left main bronchus. We explained to the patient the possible need for bronchoscopy to avoid the worsening of his respiratory conditions. Patient denied any invasive procedures and he opted to go on hospice. - Patient's plan and care discussed with my attending, Dr. Kianna Coello MD Internal Medicine PGY-2 Planned Discharge Date 05/18/24 DS: Providers Provider Date of admission: 05/11/24 23:27 Primary care physician: Susanna Sandoval MD Admitting Provider: Rupesh Seals MD Attending Provider on Admission: Popeye Hutchison DO Consults: 05/12/24 08:00 Referral Infection Control Routine Comment: Reason for Infection Control Referral: Readmitted within 30 days 05/18/24 10:31 Referral Hospice Routine Comment: Attending Provider on DC: Popeye Hutchison DO Discharging Provider: Popeye Hucthison DO DS: Diagnosis Problem List Completed Was Problem List Reviewed/Reconciled?: Yes Hospital Course Hospital Course Hospital course: This is a 73-year-old male with past medical history of CVA with left-sided deficits, hypertension, hyperlipidemia, HFpEF 50% on 11/05, history of COPD, history of type 2 diabetes on metformin, and BPH with indwelling catheter, recent admission on 05/09/2024 for acute hypoxic respiratory failure and underwent intubation brought to the emergency department from a shelter facility due to shortness of breath and altered mental status. On 05/11 the patient presented due to altered mental status unable to protect his airway. Patient was discharged on 05/11 and left the hospital around 5 PM patient spent approximately an hour and a half at the SNF he was only requiring 3 L nasal cannula however one of the nurses found the patient unresponsive bluish coloration of his face increased the oxygen to 5 patient became unresponsive EMS was called when EMS arrived if at 15 L patient was still saturating in the 70s unresponsive. Patient still had a pulse. Upon arrival to the emergency department patient remained altered unable to follow verbal commands and was still very hypoxic. Decision was made to intubate the patient. Patient was transferred to ICU. Imaging showed chest x-ray diffuse groundglass opacity consistent with ARDS. Head CT was negative. CTA chest negative for PE. CT showed compression of Left main bronchus. Bronchoscopy was considered however patient self extubated in ICU. Patient saturating well on 3L O2 and downgraded to Tele floor. Patient was started on Unasyn 3g q 6Hr due to concern for aspiration pneumonia. Patient was also found to be edematous and we increased his home lasix dose of 20g q72hr-> 40mg IV QD. Patient is net negative 8L since admission. He reports improved breathing and his chest xray has improved. Other treatment included electrolyte replacement of potassium, magnesium, and phosphorus due to aggressive diuresis. Yesterday 05/17/24 patient reported refusing blood draws, IV medications, and invasive treatment. He reported that he did not want to remain full code and opted for DNR. Patient was alert and oriented x3 at the time. POLST form was updated. Patient reemphazied these sentiments today in addition, we discussed hospice care. Patient expressed desire to avoid aggressive medical treatment measures and focus on being comfortable. Patient was started on Augmentin 875mg PO and will continue outpatient for 5 days. He received 5 days of Unasyn in the hospital. The prescription was sent to his pharmacy. Patient agreed with the plan to discharge to his [facility] computer [facility]. He is currently stable on his home 3L 02 NC saturating in the high 90s. #Acute hypoxic respiratory failure s/p extubation #ARDS, mild #History of COPD #Obstructive sleep apnea #Obesity hypoventilation #Mucous plug #History of HFrEF (EF 45%) #History of paroxysmal Atrial fibrillation on Anticoagulation #Sepsis secondary to pneumonia #Community acquired pneumonia versus aspiration pneumonia #Acute encephalopathy- resolved #History of CVA with L sided deficits #Hx of hypertension #Hx of Diabetes II #BPH with indwelling catheter #History of penile implant We appreciate the opportunity to be involved with your care. We wish you the best. The patient's plan was discussed with attending Dr. Hutchison and senior residents Dr. QuYoselin Lynne DO PGY1 Internal Medicine Time Spent with Patient Time attestation: Total time spent providing and/or coordinating discharge services: Time spent: Greater than 30 minutes Exam Vital Signs Temp Pulse Resp BP Pulse Ox O2 Del Method O2 Flow Rate 96.9 F 54 L 17 147/64 H 97 Nasal Cannula 3 05/18/24 08:00 05/18/24 09:50 05/18/24 08:00 05/18/24 09:50 05/18/24 08:00 05/18/24 08:00 05/18/24 08:00 FiO2 40 05/18/24 08:00 Narrative Exam General: Ill appearing in no distress. Oriented x 3, HEENT: Normocephalic, atraumatic, conjunctiva clear, sclera non-icteric, EOM intact, PERRL, Chest: R subclavian central line, non erythematous, small hematoma, non expanding Heart: Regular rate and rhythm, no murmur or gallop Lungs: Coarse breath sounds b/l, no wheezing Abdomen: Soft, no tenderness to palpation, non distended Extremities: No amputations or deformities, peripheral pulses intact. LLE +2 edema Neurologic: Moves all extremities spontaneously, alert and oriented x3 Psychiatric: Cooperative, normal mood and affect. Discharge Plan Plan Patient Disposition: Xfer Skilled Nsg Fac (SNF) Disposition Comment: Hospice care Patient condition on transfer: Stable Care Plan Goals: Hospice referral has been made, patient is discharged on home medications as well as antibiotic/Augmentin to be continued for 5 more days. Further management per hospice MD. Please follow-up with your primary care physician within 5 days of discharge from hospital, please return to the emergency room in case of any emergencies. Prescriptions/Referrals Prescriptions/Med Rec: New acetaminophen 325 mg Tablet 650 mg PO Q4HR PRN (Reason: Pain Scale 1-3 (Mild) 30 Days Qty: 60 0RF amoxicillin-pot clavulanate 875-125 mg Tablet 1 tab PO BID 5 Days Qty: 10 0RF Continued clopidogrel [Plavix] 75 MG tablet 75 mg PO QDAY Qty: 0 magnesium hydroxide [Milk of Magnesia] 30 ML/CUP suspension 30 ml PO Q72H PRN (Reason: Constipation) Qty: 0 gabapentin 300 MG capsule 300 mg PO TID Qty: 0 tamsulosin [Flomax] 0.4 mg capsule 0.4 mg PO QDAY Qty: 30 0RF apixaban 5 mg tablet 5 mg PO BID Qty: 60 0RF carvedilol 12.5 mg Tablet 12.5 mg PO BIDWM 30 Days Qty: 60 0RF ipratropium-albuterol 0.5 mg-3 mg(2.5 mg base)/3 mL Solution For Nebulization 3 ml INH Q4HRRT 30 Days Qty: 90 0RF ferrous sulfate 325 mg (65 mg iron) Tablet 325 mg PO QDAY metformin 500 mg Tablet 500 mg PO BIDWMEAL bisacodyl [Dulcolax (bisacodyl)] 10 mg Suppository 10 mg MI Q72H Rx Instructions: ADMINISTER FOLLOWING SHIFT IF MOM INEFFECTIVE amiodarone 200 mg tablet 200 mg PO BID 30 Days Qty: 30 1RF Rx Instructions: HOLD FOR HR <60 hydrocodone-acetaminophen 5-325 mg tablet 1 tab PO Q6H PRN (Reason: Pain (Scale Score 7-10)) 30 Days Qty: 90 0RF amlodipine 10 mg tablet 10 mg PO QDAY 30 Days Qty: 30 0RF Changed hydralazine 25 mg tablet 25 mg PO TID 30 Days Qty: 90 0RF furosemide 20 mg tablet 20 mg PO QDAY 30 Days Qty: 10 0RF Referrals: Susanna Sandoval MD [Primary Care Provider] - Patient/Caregiver Discharge Instructions Education Materials: COPD: Coping with Mucus, COPD: Wheezing and Chest Tightness, Understanding Atrial Fibrillation Print Language: Indian Stand Alone Forms: Dora Award Info., Patient Portal Info Letter Discharge Order Discharge Orders: Discharge (Routine); Ordered 05/18/24 Ordered By: Remy Lynne Quality Discharge Quality Measures VTE prophylaxis Attestestation Attestation I have discussed and was present for the essential components of the discharge history, physical examination, diagnosis, and discharge treatment plan with the resident. I agree with the patient's discharge care as documented by the re sident and amended herein by me. Abdi Hutchison DO. The patient understood all discharge instructions, all questions were answered satisfactorily. The patient was instructed to return to the Emergency Department is symptoms worsened or persisted. Although this document has been carefully reviewed, there may still be some phonetic and other typographical errors. These errors are purely grammatical due to imperfections in the software program and should not be construed in any way to compromise the substance of the patient's medical care during this visit.
--- NOTE | 2024-05-18 13:03 | PC.SS ---
Transportation request initiated with [employer]. Preferred transport [place]. Reference #[id number]. Referral submitted on [facility], awaiting responses.
--- NOTE | 2024-05-18 13:30 | PC.SS ---
Transport referral submitted on [facility]. [employer] provided update to dispatch. Pending [employer] authorization.
--- NOTE | 2024-05-18 14:24 | PC.SS ---
Rounding Note: Plan is to d/c patient to SNF with hospice.
--- NOTE | 2024-05-18 15:11 | PC.SS ---
GEOLOGY FACULTY MEMBER contacted [facility] to obtain status on transportation request. GEOLOGY FACULTY MEMBER notified by [facility] staff, Sigifredo; that request will be expedited. [facility] confirmed that initial submittal occurred over 3hrs ago with no authorization obtained. [facility] staff confirmed [place] as preferred transport.
--- NOTE | 2024-05-18 15:44 | PC.SS ---
EXTENSION ASSOCIATE contacted dispatch to confirm if [employer] authorization has been obtained. Authorization pending. If authorization obtained after EXTENSION ASSOCIATE departs for the evening, dispatch will contact Tele unit to confirm transport time. EXTENSION ASSOCIATE will also leave contact number for Tele cracking unit operator to update both SNF and [facility] hospice staff on transport time.
--- NOTE | 2024-05-18 18:00 | PC.NURSE ---
Pt central line triple lumen catheter removed today at 1800 using sterile technique as outlined in hospital policy. Site bruised prior to removal, MD aware. Catheter removed easily with no resistance. Catheter inspected and fully intact upon removal. Pressure applied to catheter insertion site for 5 minutes after removal, after which hemostasis was achieved. Sterile 4x4 gauze and tegaderm applied to site. Patient tolerated procedure well. Patient and SNF nurse instructed to leave dressing on for 24 hours, ok to remove at 1800 on 05/19. No complicatins with removal.
--- NOTE | 2024-05-18 18:45 | PC.NURSE ---
Called to notify [facility] of pt transfer to [facility]. Arthur RN that report was given to Yahaira at facility. No further information requested by [facility] nurse.
== END 2024-05-18 18:30 | disposition skilled nursing facility (03) | DRG 871 ==
LOC: SERX 23:01 → SERHOLD 23:39 → S2SX 05-12 00:46 → S2NX 05-14 03:32 → S2SX 05-18 13:20
PROVIDERS: Student in an Organized Health Care Education/Training Program; Admitting Provider Student in an Organized Health Care Education/Training Program; Emergency Provider Emergency Medicine; PCP Hospitalist; Visit Provider Student in an Organized Health Care Education/Training Program
DX: A41.9 Sepsis, unspecified organism (principal); J18.9 Pneumonia, unspecified organism; J69.0 Pneumonitis due to inhalation of food and vomit; J80 Acute respiratory distress syndrome; E87.4 Mixed disorder of acid-base balance; G93.40 Encephalopathy, unspecified; I50.42 Chronic combined systolic (congestive) and diastolic (congestive) heart failure; E66.2 Morbid (severe) obesity with alveolar hypoventilation; T17.590A Other foreign object in bronchus causing asphyxiation, initial encounter; I69.354 Hemiplegia and hemiparesis following cerebral infarction affecting left non-dominant side; J44.0 Chronic obstructive pulmonary disease with (acute) lower respiratory infection; E11.9 Type 2 diabetes mellitus without complications; I11.0 Hypertensive heart disease with heart failure; I25.10 Atherosclerotic heart disease of native coronary artery without angina pectoris; I48.0 Paroxysmal atrial fibrillation; N40.0 Benign prostatic hyperplasia without lower urinary tract symptoms; E78.5 Hyperlipidemia, unspecified; M54.9 Dorsalgia, unspecified; Z66 Do not resuscitate; G89.29 Other chronic pain; Z68.39 Body mass index [BMI] 39.0-39.9, adult; Z86.19 Personal history of other infectious and parasitic diseases; Z99.81 Dependence on supplemental oxygen; Z74.01 Bed confinement status; Z79.01 Long term (current) use of anticoagulants; Z79.02 Long term (current) use of antithrombotics/antiplatelets; Z79.84 Long term (current) use of oral hypoglycemic drugs; Z79.899 Other long term (current) drug therapy; W44.F9XA Other object of natural or organic material, entering into or through a natural orifice, initial encounter
CPT/HCPCS: 36415; 36600; 70450; 71045; 71250; 71275; 74177; 80048; 80053; 80202; 80307; 80320; 81001; 82140; 82150; 82803; 83605; 83690; 83735; 83880; 84100; 84145; 84439; 84443; 84484; 85025; 85379; 85610; 85652; 85730; 86140; 87040; 87077; 87081; 87086; 87186; 87205; 87400; 87449; 87502; 87634; 87635; 87811; 92526; 92610; 93005; 94002; 94003; 94640; 94660; 94664; 94667; 96365; 96366; 96367; 96375; 96376; 99285; 99291; A4649; A9270; C1751; J0295; J0360; J0692; J1100; J1643; J1650; J1815; J1940; J2251; J2470; J2543; J2919; J3010; J3370; J3371; J3475; J3480; J3490; J7040; J7050; Q9967; G0480; J1644